=== PATIENT | female | born 1940 | race Caucasian/White ===

== ENCOUNTER 2018-03-17 12:16 | Inpatient (IN) ==
[2018-03-17 13:28] LABS: Alanine Aminotransferase 33 U/L (13-56); Albumin 3.3 G/DL (3.4-5.0); Alkaline Phosphatase 71 U/L (45-117); Aspartate Amino Transferase 34 U/L (0-37); Blood Urea Nitrogen 12 MG/DL (7-18); Glucose 176 MG/DL (74-106); Osmolality,Calculated 280.5 MOS/KG (273-304); Sodium 139 MMOL/L (136-145); Total Protein 7.3 G/DL (6.4-8.3); Troponin I Only < 0.015 NG/ML (0.00-0.045)
[2018-03-17 13:43] LABS: Basophils # 0.1 10*3/uL (0.0-0.2); Basophils % 0.8 % (0.0-0.8); Eosinophils # 0.8 10*3/uL (0.0-0.87); Hematocrit 35.9 VOL% (35.7-47.0); Hemoglobin 11.5 GM/DL (12.0-16.0); Immature Granulocytes % 0.1 %; Immature Granulocytes Absolute 0.01 #; Lymphocytes # 2.5 10*3/uL (1.4-4.0); Lymphocytes % 32.7 % (21.3-54.2); Mean Corpuscular Hemoglobin 27 PG (27-34); Mean Corpuscular Volume 85.5 FL (87-102); Mean Platelet Volume 9.6 FL (9.6-12.0); Monocytes # 0.6 10*3/uL (0.11-0.8); Neutrophils # 3.6 10*3/uL (1.4-7.4); Neutrophils % 48.4 % (38.7-73.9); Platelet Count 211 T/CUMM (130-400); Red Cell Distribution Width 15.5 % (9.3-17.3); White Blood Count 7.5 T/CUMM (4-12)
[2018-03-17 13:51] LABS: PT Patient Result 10.3 SECS; Partial Thromboplastin Time 24.4 SECS (0-40)
[2018-03-17 14:30] LABS: Apearance,Urine Slightly Hazy (Clear); Bacteria,Urine Occasional /HPF (Few); Bilirubin,Urine Negative (Negative); Blood, Urine Small mg/dL (Negative); Glucose,Urine (UA) Negative (Negative); Hyaline Casts,Urine 1 /LPF (0-3); Ketones,Urine Negative (Negative); Mucus,Urine Occasional /LPF (Occasional); Nitrite,Urine Positive (Negative); Protein,Urine Negative; RBC,Urine <1 /HPF (0-4); Squamous Epithelial Cell,Urine Occasional /HPF (0-10); Urine Color Yellow (Yellow); Urine Specific Gravity 1.003 (1.001-1.035); Urine Urobilinogen < 2.0 EU/DL (0.2-1.0); WBC,Urine 221 /HPF (0-6)
[2018-03-17] MEDS ORDERED: LEVOFLOXACIN INJ 750 MG in PREMIX 1 EACH IV STA (14:33)
[2018-03-17] MEDS ORDERED: LORazepam 2 MG/1 ML VIAL IV ONE (15:22)
[2018-03-17] MEDS ORDERED: GLUCAGON 1 MG VIAL IM PRN (15:34)
[2018-03-17] MEDS ORDERED: DEXTROSE 50% 25 GM/50 ML VIAL IV PRN (15:34)
[2018-03-17 15:45] LABS: Risk Ratio 3.08; VLDL CHOLESTEROL 19.4 MG/DL
[2018-03-17] MEDS ORDERED: LEVOFLOXACIN INJ 150 ML IV ONE (15:47)
[2018-03-17] MEDS ORDERED: hydrALAZINE 20 MG/1 ML VIAL ONE (16:28)
[2018-03-17] MEDS: hydrALAZINE 20 MG/1 ML VIAL IV PRN (16:29)
[2018-03-17 16:36] LABS: T4 (Thyroxine) 12.3 UG/DL (4.7-13.3); Thyroid Stimulating Hormone 2.23 uIU/ml (0.358-3.74)
[2018-03-17] MEDS: INSULIN LISPRO 100 UNIT/ML SUBCUT SCH ×2 (17:17→20:48)
[2018-03-17] MEDS: ASPIRIN EC 81 MG TABLET PO SCH (17:23)
[2018-03-17] MEDS: INSULIN GLARGINE 100 UNIT/ML SUBCUT SCH (20:47)
[2018-03-17] MEDS: PROPRANOLOL 40 MG TABLET PO SCH (20:49)
[2018-03-17] MEDS: metFORMIN 500 MG TABLET PO SCH (20:49)
[2018-03-17] MEDS: GABAPENTIN 100 MG CAPSULE PO SCH (20:49)
[2018-03-17] MEDS ORDERED: SIMVASTATIN 40 MG TABLET PO SCH (21:00)
[2018-03-17] MEDS: DOCUSATE SODIUM 100 MG CAPSULE PO SCH (22:17)
[2018-03-18 05:54] LABS: Basophils # 0.1 10*3/uL (0.0-0.2); Basophils % 0.7 % (0.0-0.8); Eosinophils # 0.4 10*3/uL (0.0-0.87); Hematocrit 36.8 VOL% (35.7-47.0); Hemoglobin 11.8 GM/DL (12.0-16.0); Immature Granulocytes % 0.5 %; Immature Granulocytes Absolute 0.04 #; Lymphocytes # 2.2 10*3/uL (1.4-4.0); Lymphocytes % 30.3 % (21.3-54.2); Mean Corpuscular HGB Conc 32.1 GM/DL (32-36); Mean Corpuscular Hemoglobin 28 PG (27-34); Mean Corpuscular Volume 86.6 FL (87-102); Mean Platelet Volume 9.9 FL (9.6-12.0); Monocytes # 0.6 10*3/uL (0.11-0.8); Monocytes % 8.4 % (1.7-12.7); Neutrophils % 54.1 % (38.7-73.9); Platelet Count 223 T/CUMM (130-400); Red Blood Count 4.25 MC/CUMM (3.8-5.5); Red Cell Distribution Width 15.6 % (9.3-17.3); White Blood Count 7.4 T/CUMM (4-12)
[2018-03-18 06:03] LABS: Calcium 9.2 MG/DL (8.5-10.1); Osmolality,Calculated 280.5 MOS/KG (273-304); Potassium 4.1 MMOL/L (3.5-5.1)
[2018-03-18 06:07] LABS: Albumin 3.4 G/DL (3.4-5.0); Bilirubin,Total 1.3 MG/DL (0.2-1.0); Calcium 9.3 MG/DL (8.5-10.1); Osmolality,Calculated 283.4 MOS/KG (273-304); Potassium 4.1 MMOL/L (3.5-5.1); Total Protein 7.1 G/DL (6.4-8.3)
[2018-03-18] MEDS: INSULIN LISPRO 100 UNIT/ML SUBCUT SCH ×5 (08:50→20:53)
[2018-03-18] MEDS: metFORMIN 500 MG TABLET PO SCH ×2 (08:51→20:52)
[2018-03-18] MEDS: PANTOPRAZOLE 40 MG TABLET PO SCH (08:51)
[2018-03-18] MEDS: BENZTROPINE 0.5 MG TABLET PO SCH (08:51)
[2018-03-18] MEDS: PROPRANOLOL 40 MG TABLET PO SCH ×2 (08:51→20:52)
[2018-03-18] MEDS: LOSARTAN 50 MG TABLET PO SCH (08:51)
[2018-03-18] MEDS: DOCUSATE SODIUM 100 MG CAPSULE PO SCH ×2 (08:51→20:52)
[2018-03-18] MEDS: ASPIRIN EC 81 MG TABLET PO SCH (08:51)
[2018-03-18] MEDS: LEVOFLOXACIN INJ 750 MG in PREMIX 1 EACH IV SCH (15:54)
[2018-03-18] MEDS: ATORVASTATIN 10 MG TABLET PO SCH (20:52)
[2018-03-18] MEDS: INSULIN GLARGINE 100 UNIT/ML SUBCUT SCH (20:53)
[2018-03-18] MEDS: GABAPENTIN 100 MG CAPSULE PO SCH (21:13)
[2018-03-19] MEDS: INSULIN LISPRO 100 UNIT/ML SUBCUT SCH ×5 (08:11→20:55)
[2018-03-19] MEDS ORDERED: HALOPERIDOL DECANOATE 50 MG/ML IM SCH (09:00)
[2018-03-19] MEDS: LOSARTAN 50 MG TABLET PO SCH (09:10)
[2018-03-19] MEDS: PANTOPRAZOLE 40 MG TABLET PO SCH (09:11)
[2018-03-19] MEDS: FLUTICASONE 50 MCG NASAL SPRAY 16 GM BOTTLE BOTH NARES SCH (09:11)
[2018-03-19] MEDS: ASPIRIN EC 81 MG TABLET PO SCH (09:11)
[2018-03-19] MEDS: metFORMIN 500 MG TABLET PO SCH ×2 (09:11→20:54)
[2018-03-19] MEDS: PROPRANOLOL 40 MG TABLET PO SCH ×2 (09:11→20:54)
[2018-03-19] MEDS: CLOPIDOGREL 75 MG TABLET PO SCH (09:11)
[2018-03-19] MEDS: DOCUSATE SODIUM 100 MG CAPSULE PO SCH ×2 (09:11→20:54)
[2018-03-19] MEDS: BENZTROPINE 0.5 MG TABLET PO SCH (09:11)
[2018-03-19] MEDS: ALBUTEROL/IPRATROPIUM 3 ML NEB RESP TX SCH ×2 (13:03→20:05)
[2018-03-19] MEDS: LEVOTHYROXINE 25 MCG TABLET PO SCH (13:08)
[2018-03-19] MEDS ORDERED: glipiZIDE 5 MG TABLET PO SCH (16:30)
[2018-03-19] MEDS: LEVOFLOXACIN INJ 750 MG in PREMIX 1 EACH IV SCH (17:31)
[2018-03-19] MEDS: GABAPENTIN 100 MG CAPSULE PO SCH (20:54)
[2018-03-19] MEDS: TAMSULOSIN 0.4 MG CAPSULE PO SCH (20:54)
[2018-03-19] MEDS: ATORVASTATIN 10 MG TABLET PO SCH (20:54)
[2018-03-19] MEDS: INSULIN GLARGINE 100 UNIT/ML SUBCUT SCH (20:54)
[2018-03-20] MEDS: MAGNESIUM HYDROXIDE SUSP 30 ML UDCUP PO PRN (00:08)
[2018-03-20] MEDS: ALBUTEROL/IPRATROPIUM 3 ML NEB RESP TX SCH ×4 (00:54→19:58)
[2018-03-20] MEDS: LEVOTHYROXINE 25 MCG TABLET PO SCH (05:52)
[2018-03-20] MEDS ORDERED: BISACODYL 10 MG SUPP RECTAL ONE (07:58)
[2018-03-20] MEDS: INSULIN LISPRO 100 UNIT/ML SUBCUT SCH ×4 (08:26→20:41)
[2018-03-20] MEDS: BENZTROPINE 0.5 MG TABLET PO SCH (08:26)
[2018-03-20] MEDS: DOCUSATE SODIUM 100 MG CAPSULE PO SCH ×2 (08:27→20:40)
[2018-03-20] MEDS: CLOPIDOGREL 75 MG TABLET PO SCH (08:27)
[2018-03-20] MEDS: LOSARTAN 50 MG TABLET PO SCH (08:27)
[2018-03-20] MEDS: FLUTICASONE 50 MCG NASAL SPRAY 16 GM BOTTLE BOTH NARES SCH (08:27)
[2018-03-20] MEDS: ASPIRIN EC 81 MG TABLET PO SCH (08:27)
[2018-03-20] MEDS: metFORMIN 500 MG TABLET PO SCH ×2 (08:27→20:40)
[2018-03-20] MEDS: PANTOPRAZOLE 40 MG TABLET PO SCH (08:27)
[2018-03-20] MEDS: PROPRANOLOL 40 MG TABLET PO SCH ×2 (08:27→20:40)
[2018-03-20] MEDS: NITROFURANTOIN MACRO/MONO 100 MG CAPSULE PO SCH (10:37)
[2018-03-20] MEDS: LEVOFLOXACIN 500 MG TABLET PO SCH (11:50)
[2018-03-20] MEDS: ATORVASTATIN 10 MG TABLET PO SCH (20:40)
[2018-03-20] MEDS: TAMSULOSIN 0.4 MG CAPSULE PO SCH (20:40)
[2018-03-20] MEDS: INSULIN GLARGINE 100 UNIT/ML SUBCUT SCH (20:40)
[2018-03-20] MEDS: GABAPENTIN 100 MG CAPSULE PO SCH (20:40)
[2018-03-21] MEDS: hydrALAZINE 20 MG/1 ML VIAL IV PRN (00:08)
[2018-03-21] MEDS: ALBUTEROL/IPRATROPIUM 3 ML NEB RESP TX SCH ×4 (01:56→19:34)
[2018-03-21] MEDS: LEVOTHYROXINE 25 MCG TABLET PO SCH (06:15)
[2018-03-21] MEDS: INSULIN LISPRO 100 UNIT/ML SUBCUT SCH ×4 (08:58→22:52)
[2018-03-21] MEDS: metFORMIN 500 MG TABLET PO SCH ×2 (08:59→22:05)
[2018-03-21] MEDS: BENZTROPINE 0.5 MG TABLET PO SCH (09:00)
[2018-03-21] MEDS: PROPRANOLOL 40 MG TABLET PO SCH ×2 (09:00→22:06)
[2018-03-21] MEDS: DOCUSATE SODIUM 100 MG CAPSULE PO SCH ×2 (09:00→22:06)
[2018-03-21] MEDS: ASPIRIN EC 81 MG TABLET PO SCH (09:00)
[2018-03-21] MEDS: LOSARTAN 50 MG TABLET PO SCH (09:01)
[2018-03-21] MEDS: CLOPIDOGREL 75 MG TABLET PO SCH (09:05)
[2018-03-21] MEDS: FLUTICASONE 50 MCG NASAL SPRAY 16 GM BOTTLE BOTH NARES SCH (09:05)
[2018-03-21] MEDS: PANTOPRAZOLE 40 MG TABLET PO SCH (09:05)
[2018-03-21] MEDS: NITROFURANTOIN MACRO/MONO 100 MG CAPSULE PO SCH (11:07)
[2018-03-21] MEDS: LEVOFLOXACIN 500 MG TABLET PO SCH (11:07)
[2018-03-21] MEDS: INSULIN GLARGINE 100 UNIT/ML SUBCUT SCH (22:03)
[2018-03-21] MEDS: ATORVASTATIN 10 MG TABLET PO SCH (22:06)
[2018-03-21] MEDS: GABAPENTIN 100 MG CAPSULE PO SCH (22:06)
[2018-03-21] MEDS: TAMSULOSIN 0.4 MG CAPSULE PO SCH (22:06)
[2018-03-22] MEDS: ALBUTEROL/IPRATROPIUM 3 ML NEB RESP TX SCH ×4 (00:11→20:09)
[2018-03-22] MEDS: LEVOTHYROXINE 25 MCG TABLET PO SCH (06:20)
[2018-03-22] MEDS: INSULIN LISPRO 100 UNIT/ML SUBCUT SCH ×4 (09:05→21:46)
[2018-03-22] MEDS: CLOPIDOGREL 75 MG TABLET PO SCH (09:06)
[2018-03-22] MEDS: ASPIRIN EC 81 MG TABLET PO SCH (09:06)
[2018-03-22] MEDS: PROPRANOLOL 40 MG TABLET PO SCH ×2 (09:06→21:46)
[2018-03-22] MEDS: LEVOFLOXACIN 500 MG TABLET PO SCH ×2 (09:06→10:33)
[2018-03-22] MEDS: BENZTROPINE 0.5 MG TABLET PO SCH (09:06)
[2018-03-22] MEDS: DOCUSATE SODIUM 100 MG CAPSULE PO SCH ×2 (09:06→21:46)
[2018-03-22] MEDS: PANTOPRAZOLE 40 MG TABLET PO SCH (09:06)
[2018-03-22] MEDS: NITROFURANTOIN MACRO/MONO 100 MG CAPSULE PO SCH (09:06)
[2018-03-22] MEDS: metFORMIN 500 MG TABLET PO SCH ×2 (09:06→21:46)
[2018-03-22] MEDS: LOSARTAN 50 MG TABLET PO SCH (09:06)
[2018-03-22] MEDS: FLUTICASONE 50 MCG NASAL SPRAY 16 GM BOTTLE BOTH NARES SCH (09:07)
[2018-03-22] MEDS: TAMSULOSIN 0.4 MG CAPSULE PO SCH (21:46)
[2018-03-22] MEDS: GABAPENTIN 100 MG CAPSULE PO SCH (21:46)
[2018-03-22] MEDS: ATORVASTATIN 10 MG TABLET PO SCH (21:46)
[2018-03-22] MEDS: INSULIN GLARGINE 100 UNIT/ML SUBCUT SCH (21:48)
[2018-03-23] MEDS: ALBUTEROL/IPRATROPIUM 3 ML NEB RESP TX SCH ×4 (00:30→19:29)
[2018-03-23] MEDS: LEVOTHYROXINE 25 MCG TABLET PO SCH (07:11)
[2018-03-23] MEDS: NITROFURANTOIN MACRO/MONO 100 MG CAPSULE PO SCH (09:28)
[2018-03-23] MEDS: INSULIN LISPRO 100 UNIT/ML SUBCUT SCH ×4 (09:28→20:21)
[2018-03-23] MEDS: metFORMIN 500 MG TABLET PO SCH ×2 (09:28→20:20)
[2018-03-23] MEDS: BENZTROPINE 0.5 MG TABLET PO SCH (09:28)
[2018-03-23] MEDS: PROPRANOLOL 40 MG TABLET PO SCH ×2 (09:29→20:20)
[2018-03-23] MEDS: CLOPIDOGREL 75 MG TABLET PO SCH (09:29)
[2018-03-23] MEDS: ASPIRIN EC 81 MG TABLET PO SCH (09:29)
[2018-03-23] MEDS: LOSARTAN 50 MG TABLET PO SCH (09:29)
[2018-03-23] MEDS: PANTOPRAZOLE 40 MG TABLET PO SCH (09:29)
[2018-03-23] MEDS: DOCUSATE SODIUM 100 MG CAPSULE PO SCH ×2 (09:29→20:20)
[2018-03-23] MEDS: FLUTICASONE 50 MCG NASAL SPRAY 16 GM BOTTLE BOTH NARES SCH (09:29)
[2018-03-23] MEDS: LEVOFLOXACIN 500 MG TABLET PO SCH (10:02)
[2018-03-23] MEDS: TAMSULOSIN 0.4 MG CAPSULE PO SCH (20:20)
[2018-03-23] MEDS: ATORVASTATIN 10 MG TABLET PO SCH (20:20)
[2018-03-23] MEDS: INSULIN GLARGINE 100 UNIT/ML SUBCUT SCH (20:21)
[2018-03-23] MEDS: GABAPENTIN 100 MG CAPSULE PO SCH (20:21)
[2018-03-24] MEDS: ALBUTEROL/IPRATROPIUM 3 ML NEB RESP TX SCH ×3 (01:11→13:25)
[2018-03-24] MEDS: LEVOTHYROXINE 25 MCG TABLET PO SCH (05:53)
[2018-03-24] MEDS: NITROFURANTOIN MACRO/MONO 100 MG CAPSULE PO SCH (09:16)
[2018-03-24] MEDS: PROPRANOLOL 40 MG TABLET PO SCH (09:16)
[2018-03-24] MEDS: metFORMIN 500 MG TABLET PO SCH (09:16)
[2018-03-24] MEDS: BENZTROPINE 0.5 MG TABLET PO SCH (09:16)
[2018-03-24] MEDS: DOCUSATE SODIUM 100 MG CAPSULE PO SCH (09:17)
[2018-03-24] MEDS: PANTOPRAZOLE 40 MG TABLET PO SCH (09:17)
[2018-03-24] MEDS: ASPIRIN EC 81 MG TABLET PO SCH (09:17)
[2018-03-24] MEDS: LOSARTAN 50 MG TABLET PO SCH (09:17)
[2018-03-24] MEDS: CLOPIDOGREL 75 MG TABLET PO SCH (09:17)
[2018-03-24] MEDS: FLUTICASONE 50 MCG NASAL SPRAY 16 GM BOTTLE BOTH NARES SCH (09:17)
[2018-03-24] MEDS: MAGNESIUM HYDROXIDE SUSP 30 ML UDCUP PO PRN (09:17)
[2018-03-24] MEDS: INSULIN LISPRO 100 UNIT/ML SUBCUT SCH ×2 (09:17→13:53)
[2018-03-24 12:26] VITALS: BP 160/92
== END 2018-03-24 14:00 | disposition swing bed (61) | DRG 65 ==
LOC: EDBD → EDUNIT# → N.ED 12:16 → SUATTDRO 15:18 → N.EDINP 15:18 → N.5E 16:49
PROVIDERS: ADMIT Internal Medicine; ATTEND Internal Medicine

== ENCOUNTER 2018-06-27 22:15 | Observation (INO) ==
[2018-06-27] MEDS ORDERED: hydrALAZINE 20 MG/1 ML VIAL IV STA (22:55)
[2018-06-27 23:38] LABS: Basophils # 0.1 10*3/uL (0.0-0.2); Basophils % 0.8 % (0.0-0.8); Eosinophils # 1.4 10*3/uL (0.0-0.87); Eosinophils % 15.6 % (0.00-10.9); Hematocrit 31.2 VOL% (35.7-47.0); Hemoglobin 10.1 GM/DL (12.0-16.0); Immature Granulocytes % 0.2 %; Immature Granulocytes Absolute 0.02 #; Lymphocytes # 2.8 10*3/uL (1.4-4.0); Lymphocytes % 30.1 % (21.3-54.2); Mean Corpuscular HGB Conc 32.4 GM/DL (32-36); Mean Corpuscular Hemoglobin 27 PG (27-34); Mean Corpuscular Volume 83.6 FL (87-102); Mean Platelet Volume 8.9 FL (9.6-12.0); Monocytes # 0.8 10*3/uL (0.11-0.8); Monocytes % 8.3 % (1.7-12.7); Neutrophils # 4.2 10*3/uL (1.4-7.4); Platelet Count 202 T/CUMM (130-400); Red Blood Count 3.73 MC/CUMM (3.8-5.5); White Blood Count 9.2 T/CUMM (4-12)
[2018-06-27 23:48] LABS: PT Patient Result 10.4 SECS
[2018-06-28 00:01] LABS: Alanine Aminotransferase 28 U/L (13-56); Albumin 3.7 G/DL (3.4-5.0); Alkaline Phosphatase 62 U/L (45-117); Aspartate Amino Transferase 22 U/L (0-37); Blood Urea Nitrogen 12 MG/DL (7-18); Calcium 8.6 MG/DL (8.5-10.1); Glucose 79 MG/DL (74-106); Osmolality,Calculated 273.7 MOS/KG (273-304); Potassium 3.6 MMOL/L (3.5-5.1); Sodium 138 MMOL/L (136-145); Total Protein 7.4 G/DL (6.4-8.3); Troponin I Only < 0.015 NG/ML (0.00-0.045)
[2018-06-28] MEDS ORDERED: MAGNESIUM SULF RIDER 1 GM in PREMIX 1 EACH IV STA (00:14)
[2018-06-28] MEDS ORDERED: MAGNESIUM SULF RIDER 50 ML IV ONE (00:19)
[2018-06-28 00:24] LABS: Apearance,Urine CLEAR (Clear); Bilirubin,Urine Negative (Negative); Blood, Urine Small mg/dL (Negative); Glucose,Urine (UA) Negative (Negative); Ketones,Urine Negative (Negative); Nitrite,Urine Negative (Negative); Protein,Urine Negative; RBC,Urine 1 /HPF (0-4); Urine Color Colorless (Yellow); Urine Specific Gravity 1.002 (1.001-1.035); Urine Urobilinogen < 2.0 EU/DL (0.2-1.0); WBC,Urine 1 /HPF (0-6)
[2018-06-28] MEDS ORDERED: hydrALAZINE 20 MG/1 ML VIAL IV STA (00:40)
[2018-06-28] MEDS ORDERED: SODIUM CHLORIDE 0.9% 1,000 ML IV STA (01:57)
[2018-06-28 03:16] LABS: Anisocytosis 1+; Band Neutrophils 2 % (0-10); Eosinophils 18 % (0-10); Lymphocytes 32 % (20-55); Microcytosis 1+; Platelet Estimate Normal; Polychromasia Few; Segmented Neutrophils 41 % (50-85); Total Cells Counted 100
[2018-06-28] MEDS ORDERED: ONDANSETRON 4 MG/2 ML VIAL IV PRN (04:04)
[2018-06-28] MEDS ORDERED: GLUCAGON 1 MG VIAL IM PRN (04:04)
[2018-06-28] MEDS ORDERED: ACETAMINOPHEN 325 MG TABLET PO PRN (04:04)
[2018-06-28] MEDS ORDERED: DEXTROSE 50% 25 GM/50 ML VIAL IV PRN (04:04)
[2018-06-28] MEDS: LEVOTHYROXINE 25 MCG TABLET PO SCH (06:25)
[2018-06-28] MEDS ORDERED: CLOPIDOGREL 75 MG TABLET PO SCH (09:00)
[2018-06-28] MEDS ORDERED: ENOXAPARIN 40 MG/0.4 ML SYRINGE SUBCUT SCH (09:00)
[2018-06-28] MEDS: PROPRANOLOL 40 MG TABLET PO SCH ×2 (10:05→21:34)
[2018-06-28] MEDS: BENZTROPINE 0.5 MG TABLET PO SCH (10:05)
[2018-06-28] MEDS: INSULIN LISPRO 100 UNIT/ML SUBCUT SCH ×4 (10:06→21:34)
[2018-06-28] MEDS: LOSARTAN 50 MG TABLET PO SCH (10:06)
[2018-06-28] MEDS: PANTOPRAZOLE 40 MG TABLET PO SCH (10:06)
[2018-06-28] MEDS: ASPIRIN EC 81 MG TABLET PO SCH (10:06)
[2018-06-28] MEDS ORDERED: LORazepam 2 MG/1 ML VIAL IV ONE (11:26)
[2018-06-28] MEDS ORDERED: GABAPENTIN 100 MG CAPSULE PO SCH (21:00)
[2018-06-28] MEDS ORDERED: INSULIN GLARGINE 100 UNIT/ML SUBCUT SCH (21:00)
[2018-06-28] MEDS ORDERED: TAMSULOSIN 0.4 MG CAPSULE PO SCH (21:00)
[2018-06-28] MEDS ORDERED: sitaGLIPtin 25 MG TABLET PO SCH (21:00)
[2018-06-28] MEDS ORDERED: NITROFURANTOIN MACRO/MONO 100 MG CAPSULE PO SCH (21:00)
[2018-06-28] MEDS ORDERED: SIMVASTATIN 40 MG TABLET PO SCH (21:00)
[2018-06-28] MEDS: APIXABAN 2.5 MG TABLET PO SCH (21:33)
[2018-06-29 05:04] LABS: Basophils # 0.1 10*3/uL (0.0-0.2); Basophils % 0.8 % (0.0-0.8); Eosinophils # 0.9 10*3/uL (0.0-0.87); Eosinophils % 14.5 % (0.00-10.9); Hematocrit 31.4 VOL% (35.7-47.0); Hemoglobin 9.9 GM/DL (12.0-16.0); Immature Granulocytes % 0.3 %; Immature Granulocytes Absolute 0.02 #; Lymphocytes # 2.2 10*3/uL (1.4-4.0); Lymphocytes % 33.8 % (21.3-54.2); Mean Corpuscular HGB Conc 31.5 GM/DL (32-36); Mean Corpuscular Hemoglobin 27 PG (27-34); Mean Corpuscular Volume 84.2 FL (87-102); Mean Platelet Volume 9.3 FL (9.6-12.0); Monocytes # 0.6 10*3/uL (0.11-0.8); Monocytes % 8.8 % (1.7-12.7); Neutrophils # 2.7 10*3/uL (1.4-7.4); Neutrophils % 41.8 % (38.7-73.9); Platelet Count 183 T/CUMM (130-400); Red Blood Count 3.73 MC/CUMM (3.8-5.5); Red Cell Distribution Width 16.4 % (9.3-17.3); White Blood Count 6.5 T/CUMM (4-12)
[2018-06-29 05:46] LABS: Calcium 8.7 MG/DL (8.5-10.1); Osmolality,Calculated 285.3 MOS/KG (273-304); Potassium 3.9 MMOL/L (3.5-5.1); Risk Ratio 3.11; VLDL CHOLESTEROL 21.6 MG/DL
[2018-06-29 05:53] LABS: Band Neutrophils 1 % (0-10); Eosinophils 14 % (0-10); Hypochromasia 1+; Lymphocytes 33 % (20-55); Platelet Estimate Normal; Segmented Neutrophils 41 % (50-85); Total Cells Counted 100
[2018-06-29 05:54] LABS: Microcytosis Slight
[2018-06-29] MEDS: LEVOTHYROXINE 25 MCG TABLET PO SCH (06:15)
[2018-06-29] MEDS: INSULIN LISPRO 100 UNIT/ML SUBCUT SCH ×2 (08:59→13:17)
[2018-06-29] MEDS: PANTOPRAZOLE 40 MG TABLET PO SCH (09:13)
[2018-06-29] MEDS: BENZTROPINE 0.5 MG TABLET PO SCH (09:13)
[2018-06-29] MEDS: APIXABAN 2.5 MG TABLET PO SCH (09:13)
[2018-06-29] MEDS: LOSARTAN 50 MG TABLET PO SCH (09:13)
[2018-06-29] MEDS: ASPIRIN EC 81 MG TABLET PO SCH (09:13)
[2018-06-29] MEDS: PROPRANOLOL 40 MG TABLET PO SCH (09:13)
[2018-06-29 12:32] VITALS: BP 152/77
== END 2018-06-29 14:30 | disposition home or self-care (01) ==
LOC: N.ED 22:15 → INTOOBSV 06-28 04:04 → OBSVTOIN 06-28 04:04 → N.EDINP 06-28 04:04 → N.4E 06-28 04:30
PROVIDERS: ADMIT Hospitalist; ATTEND Hospitalist

== ENCOUNTER 2019-05-06 20:34 | Inpatient (IN) ==
[2019-05-06] MEDS ORDERED: SODIUM CHLORIDE 0.9% 500 ML IV STA (21:00)
[2019-05-06 21:49] LABS: Basophils % 0.3 % (0.0-0.8); Eosinophils # 0.3 10*3/uL (0.0-0.87); Hematocrit 27.4 VOL% (35.7-47.0); Hemoglobin 8.5 GM/DL (12.0-16.0); Immature Granulocytes % 0.5 %; Immature Granulocytes Absolute 0.06 #; Lymphocytes # 1.2 10*3/uL (1.4-4.0); Lymphocytes % 10.9 % (21.3-54.2); Mean Corpuscular Volume 80.6 FL (87-102); Mean Platelet Volume 9.3 FL (9.6-12.0); Neutrophils % 81.3 % (38.7-73.9); Platelet Count 218 T/CUMM (130-400); Red Cell Distribution Width 17.8 % (9.3-17.3); White Blood Count 11.2 T/CUMM (4-12)
[2019-05-06 21:58] LABS: PT Patient Result 11.1 SECS
[2019-05-06 22:15] LABS: Apearance,Urine CLEAR (Clear); Bacteria,Urine Occasional /HPF (Few); Bilirubin,Urine Negative (Negative); Blood, Urine Small mg/dL (Negative); Glucose,Urine (UA) Negative (Negative); Ketones,Urine Negative (Negative); Nitrite,Urine Negative (Negative); Protein,Urine Negative; RBC,Urine <1 /HPF (0-4); Squamous Epithelial Cell,Urine Occasional /HPF (0-10); Urine Color Colorless (Yellow); Urine Specific Gravity 1.016 (1.001-1.035); Urine Urobilinogen < 2.0 EU/DL (0.2-1.0); WBC,Urine <1 /HPF (0-6)
[2019-05-06 22:30] LABS: Alanine Aminotransferase 21 U/L (13-56); Alkaline Phosphatase 54 U/L (45-117); Amylase 25 U/L (25-115); Aspartate Amino Transferase 21 U/L (0-37); Blood Urea Nitrogen 15 MG/DL (7-18); Calcium 8.3 MG/DL (8.5-10.1); Free T4 (Free Thyroxine) 1.06 NG/DL (0.76-1.46); Glucose 150 MG/DL (74-106); Osmolality,Calculated 276.8 MOS/KG (273-304); Total Protein 6.5 G/DL (6.4-8.3); Troponin I < 0.015 NG/ML (0.00-0.045)
[2019-05-07] MEDS ORDERED: ONDANSETRON 4 MG/2 ML VIAL IV PRN (03:14)
[2019-05-07] MEDS ORDERED: ACETAMINOPHEN 325 MG TABLET PO PRN (03:14)
[2019-05-07] MEDS ORDERED: GLUCAGON 1 MG VIAL IM PRN (03:14)
[2019-05-07] MEDS ORDERED: DEXTROSE 50% 25 GM/50 ML VIAL IV PRN (03:14)
[2019-05-07] MEDS ORDERED: QUEtiapine 25 MG TABLET PO PRN (03:22)
[2019-05-07] MEDS: INSULIN LISPRO 100 UNIT/ML SUBCUT SCH ×6 (04:30→20:00)
[2019-05-07] MEDS: SODIUM CHLORIDE 0.9% 1,000 ML IV SCH ×2 (04:50→16:52)
[2019-05-07] MEDS: cefTRIAXone 1,000 MG in SYRINGE 1 EACH IV SCH (04:50)
[2019-05-07] MEDS: LEVOTHYROXINE 25 MCG TABLET PO SCH (05:53)
[2019-05-07 07:05] LABS: Basophils % 0.4 % (0.0-0.8); Eosinophils # 0.6 10*3/uL (0.0-0.87); Eosinophils % 8.2 % (0.00-10.9); Hematocrit 29.3 VOL% (35.7-47.0); Hemoglobin 8.9 GM/DL (12.0-16.0); Immature Granulocytes % 0.4 %; Immature Granulocytes Absolute 0.03 #; Mean Corpuscular HGB Conc 30.4 GM/DL (32-36); Mean Corpuscular Volume 81.4 FL (87-102); Mean Platelet Volume 9.2 FL (9.6-12.0); Platelet Count 206 T/CUMM (130-400); Red Cell Distribution Width 18.3 % (9.3-17.3); White Blood Count 7.5 T/CUMM (4-12)
[2019-05-07 07:39] LABS: Calcium 8.7 MG/DL (8.5-10.1); Osmolality,Calculated 281.3 MOS/KG (273-304)
[2019-05-07 07:43] LABS: % Iron Saturation 8.5 % (18-50)
[2019-05-07 07:52] LABS: Anisocytosis 2+; Platelet Estimate Normal; Polychromasia Slight
[2019-05-07 07:53] LABS: Folate 10.1 NG/ML (5.4-24.0); Vitamin B12 193 PG/ML (211-911)
[2019-05-07 08:17] LABS: Sedimentation Rate-Westergren 59 MM/HR (0-30)
[2019-05-07] MEDS: LOSARTAN 50 MG TABLET PO SCH (11:12)
[2019-05-07] MEDS: glipiZIDE 5 MG TABLET PO SCH ×2 (11:12→16:53)
[2019-05-07] MEDS: ASPIRIN EC 81 MG TABLET PO SCH (11:12)
[2019-05-07] MEDS: PANTOPRAZOLE 40 MG TABLET PO SCH (11:13)
[2019-05-07] MEDS: APIXABAN 2.5 MG TABLET PO SCH ×2 (11:13→21:18)
[2019-05-07] MEDS: DOCUSATE SODIUM 100 MG CAPSULE PO PRN (11:13)
[2019-05-07] MEDS: amLODIPine 5 MG TABLET PO SCH (11:13)
[2019-05-07] MEDS: PROPRANOLOL 40 MG TABLET PO SCH ×2 (11:13→21:18)
[2019-05-07] MEDS: CYANOCOBALAMIN 1000 MCG/1 ML VIAL SUBCUT SCH (17:44)
[2019-05-07] MEDS: INSULIN GLARGINE 100 UNIT/ML SUBCUT SCH (20:30)
[2019-05-07] MEDS: FOLIC ACID 1 MG TABLET PO SCH (21:18)
[2019-05-07] MEDS: FERROUS SULFATE 325 MG TABLET PO SCH (21:18)
[2019-05-07] MEDS: TAMSULOSIN 0.4 MG CAPSULE PO SCH (21:18)
[2019-05-08] MEDS: cefTRIAXone 1,000 MG in SYRINGE 1 EACH IV SCH (04:28)
[2019-05-08 04:31] LABS: Basophils % 0.5 % (0.0-0.8); Eosinophils # 0.7 10*3/uL (0.0-0.87); Eosinophils % 11.4 % (0.00-10.9); Hematocrit 27.3 VOL% (35.7-47.0); Hemoglobin 8.3 GM/DL (12.0-16.0); Immature Granulocytes % 0.3 %; Immature Granulocytes Absolute 0.02 #; Lymphocytes # 2.1 10*3/uL (1.4-4.0); Lymphocytes % 32.5 % (21.3-54.2); Mean Corpuscular HGB Conc 30.4 GM/DL (32-36); Mean Platelet Volume 9.5 FL (9.6-12.0); Monocytes % 8.6 % (1.7-12.7); Neutrophils % 46.7 % (38.7-73.9); Platelet Count 197 T/CUMM (130-400); Red Blood Count 3.37 MC/CUMM (3.8-5.5); Red Cell Distribution Width 18.2 % (9.3-17.3); White Blood Count 6.5 T/CUMM (4-12)
[2019-05-08 04:53] LABS: Calcium 8.5 MG/DL (8.5-10.1)
[2019-05-08] MEDS: SODIUM CHLORIDE 0.9% 1,000 ML IV SCH ×3 (05:15→21:45)
[2019-05-08] MEDS: LEVOTHYROXINE 25 MCG TABLET PO SCH (06:09)
[2019-05-08 06:52] LABS: Anisocytosis 1+; Band Neutrophils 3 % (0-10); Eosinophils 15 % (0-10); Lymphocytes 28 % (20-55); Macrocytosis Slight; Platelet Estimate Normal; Poikilocytosis 1+; Polychromasia Slight; Segmented Neutrophils 50 % (50-85); Total Cells Counted 100
[2019-05-08] MEDS: PROPRANOLOL 40 MG TABLET PO SCH ×2 (08:29→21:44)
[2019-05-08] MEDS: FERROUS SULFATE 325 MG TABLET PO SCH ×2 (08:29→21:44)
[2019-05-08] MEDS: LOSARTAN 50 MG TABLET PO SCH (08:30)
[2019-05-08] MEDS: APIXABAN 2.5 MG TABLET PO SCH ×2 (08:30→21:44)
[2019-05-08] MEDS: amLODIPine 5 MG TABLET PO SCH (08:30)
[2019-05-08] MEDS: PANTOPRAZOLE 40 MG TABLET PO SCH (08:30)
[2019-05-08] MEDS: INSULIN LISPRO 100 UNIT/ML SUBCUT SCH ×5 (08:30→21:45)
[2019-05-08] MEDS: ASPIRIN EC 81 MG TABLET PO SCH (08:30)
[2019-05-08] MEDS: glipiZIDE 5 MG TABLET PO SCH ×2 (08:30→17:58)
[2019-05-08] MEDS: CYANOCOBALAMIN 1000 MCG/1 ML VIAL SUBCUT SCH (08:31)
[2019-05-08] MEDS ORDERED: VANCOMYCIN INJ 1,000 MG in SODIUM CHLORIDE 0.9% 250 ML IV SCH (09:00)
[2019-05-08] MEDS: TAMSULOSIN 0.4 MG CAPSULE PO SCH (21:44)
[2019-05-08] MEDS: FOLIC ACID 1 MG TABLET PO SCH (21:44)
[2019-05-08] MEDS: INSULIN GLARGINE 100 UNIT/ML SUBCUT SCH (21:45)
[2019-05-09] MEDS ORDERED: hydrALAZINE 20 MG/1 ML VIAL IV PRN (04:09)
[2019-05-09] MEDS: cefTRIAXone 1,000 MG in SYRINGE 1 EACH IV SCH (04:32)
[2019-05-09 04:48] LABS: Basophils % 0.6 % (0.0-0.8); Eosinophils # 0.7 10*3/uL (0.0-0.87); Eosinophils % 11.2 % (0.00-10.9); Hematocrit 28.7 VOL% (35.7-47.0); Hemoglobin 8.7 GM/DL (12.0-16.0); Immature Granulocytes % 0.9 %; Immature Granulocytes Absolute 0.06 #; Lymphocytes % 30.3 % (21.3-54.2); Mean Corpuscular HGB Conc 30.3 GM/DL (32-36); Mean Corpuscular Volume 80.6 FL (87-102); Mean Platelet Volume 9.5 FL (9.6-12.0); Monocytes % 7.8 % (1.7-12.7); Neutrophils % 49.2 % (38.7-73.9); Platelet Count 220 T/CUMM (130-400); Red Blood Count 3.56 MC/CUMM (3.8-5.5); Red Cell Distribution Width 17.9 % (9.3-17.3); White Blood Count 6.5 T/CUMM (4-12)
[2019-05-09 05:13] LABS: Calcium 8.6 MG/DL (8.5-10.1)
[2019-05-09] MEDS: LEVOTHYROXINE 25 MCG TABLET PO SCH (05:22)
[2019-05-09 05:52] LABS: Anisocytosis 1+; Eosinophils 9 % (0-10); Lymphocytes 21 % (20-55); Platelet Estimate Adequate; Segmented Neutrophils 66 % (50-85); Total Cells Counted 100
[2019-05-09] MEDS: INSULIN LISPRO 100 UNIT/ML SUBCUT SCH ×5 (09:02→22:21)
[2019-05-09] MEDS: ASPIRIN EC 81 MG TABLET PO SCH (09:03)
[2019-05-09] MEDS: APIXABAN 2.5 MG TABLET PO SCH ×2 (09:03→22:21)
[2019-05-09] MEDS: glipiZIDE 5 MG TABLET PO SCH ×2 (09:03→16:47)
[2019-05-09] MEDS: PROPRANOLOL 40 MG TABLET PO SCH ×2 (09:03→22:21)
[2019-05-09] MEDS: FERROUS SULFATE 325 MG TABLET PO SCH ×2 (09:04→22:21)
[2019-05-09] MEDS: PANTOPRAZOLE 40 MG TABLET PO SCH (09:04)
[2019-05-09] MEDS: CYANOCOBALAMIN 1000 MCG/1 ML VIAL SUBCUT SCH (09:04)
[2019-05-09] MEDS: LOSARTAN 50 MG TABLET PO SCH (09:04)
[2019-05-09] MEDS: amLODIPine 5 MG TABLET PO SCH (09:04)
[2019-05-09] MEDS: SODIUM CHLORIDE 0.9% 1,000 ML IV SCH (09:10)
[2019-05-09] MEDS ORDERED: amLODIPine 5 MG TABLET PO ONE (14:12)
[2019-05-09] MEDS: BENZTROPINE 0.5 MG TABLET PO SCH (16:08)
[2019-05-09] MEDS: FOLIC ACID 1 MG TABLET PO SCH (22:21)
[2019-05-09] MEDS: GABAPENTIN 100 MG CAPSULE PO SCH (22:21)
[2019-05-09] MEDS: SIMVASTATIN 40 MG TABLET PO SCH (22:21)
[2019-05-09] MEDS: TAMSULOSIN 0.4 MG CAPSULE PO SCH (22:21)
[2019-05-09] MEDS: INSULIN GLARGINE 100 UNIT/ML SUBCUT SCH (22:21)
[2019-05-10] MEDS: cefTRIAXone 1,000 MG in SYRINGE 1 EACH IV SCH (03:55)
[2019-05-10 04:26] LABS: Basophils % 0.5 % (0.0-0.8); Eosinophils # 0.7 10*3/uL (0.0-0.87); Eosinophils % 9.6 % (0.00-10.9); Hematocrit 28.4 VOL% (35.7-47.0); Hemoglobin 8.7 GM/DL (12.0-16.0); Immature Granulocytes % 0.5 %; Immature Granulocytes Absolute 0.04 #; Lymphocytes # 2.5 10*3/uL (1.4-4.0); Lymphocytes % 33.6 % (21.3-54.2); Mean Corpuscular HGB Conc 30.6 GM/DL (32-36); Mean Corpuscular Volume 80.2 FL (87-102); Mean Platelet Volume 9.3 FL (9.6-12.0); Monocytes % 6.5 % (1.7-12.7); Neutrophils % 49.3 % (38.7-73.9); Platelet Count 222 T/CUMM (130-400); Red Blood Count 3.54 MC/CUMM (3.8-5.5); Red Cell Distribution Width 18.5 % (9.3-17.3); White Blood Count 7.5 T/CUMM (4-12)
[2019-05-10 04:52] LABS: Calcium 8.8 MG/DL (8.5-10.1); Osmolality,Calculated 291.8 MOS/KG (273-304)
[2019-05-10] MEDS: LEVOTHYROXINE 25 MCG TABLET PO SCH (06:16)
[2019-05-10] MEDS: INSULIN LISPRO 100 UNIT/ML SUBCUT SCH ×5 (08:48→21:21)
[2019-05-10] MEDS: amLODIPine 10 MG TABLET PO SCH (08:50)
[2019-05-10] MEDS: BENZTROPINE 0.5 MG TABLET PO SCH ×2 (08:50→08:56)
[2019-05-10] MEDS: ASPIRIN EC 81 MG TABLET PO SCH (08:50)
[2019-05-10] MEDS: FERROUS SULFATE 325 MG TABLET PO SCH ×2 (08:50→21:21)
[2019-05-10] MEDS: PANTOPRAZOLE 40 MG TABLET PO SCH (08:50)
[2019-05-10] MEDS: APIXABAN 2.5 MG TABLET PO SCH ×2 (08:50→21:20)
[2019-05-10] MEDS: glipiZIDE 5 MG TABLET PO SCH ×2 (08:50→16:31)
[2019-05-10] MEDS: LOSARTAN 50 MG TABLET PO SCH (08:50)
[2019-05-10] MEDS: PROPRANOLOL 40 MG TABLET PO SCH ×2 (08:50→21:20)
[2019-05-10] MEDS: CYANOCOBALAMIN 1000 MCG/1 ML VIAL SUBCUT SCH (08:51)
[2019-05-10] MEDS: LEVOFLOXACIN 500 MG TABLET PO SCH (16:31)
[2019-05-10] MEDS: GABAPENTIN 100 MG CAPSULE PO SCH (21:20)
[2019-05-10] MEDS: FOLIC ACID 1 MG TABLET PO SCH (21:20)
[2019-05-10] MEDS: SIMVASTATIN 40 MG TABLET PO SCH (21:20)
[2019-05-10] MEDS: INSULIN GLARGINE 100 UNIT/ML SUBCUT SCH (21:21)
[2019-05-10] MEDS: TAMSULOSIN 0.4 MG CAPSULE PO SCH (21:28)
[2019-05-11] MEDS: cefTRIAXone 1,000 MG in SYRINGE 1 EACH IV SCH (03:34)
[2019-05-11 04:50] LABS: Basophils # 0.1 10*3/uL (0.0-0.2); Basophils % 0.8 % (0.0-0.8); Eosinophils # 0.7 10*3/uL (0.0-0.87); Eosinophils % 11.2 % (0.00-10.9); Hematocrit 27.6 VOL% (35.7-47.0); Hemoglobin 8.5 GM/DL (12.0-16.0); Immature Granulocytes % 0.9 %; Immature Granulocytes Absolute 0.06 #; Lymphocytes # 2.1 10*3/uL (1.4-4.0); Lymphocytes % 32.1 % (21.3-54.2); Mean Corpuscular HGB Conc 30.8 GM/DL (32-36); Mean Corpuscular Volume 80.7 FL (87-102); Mean Platelet Volume 9.4 FL (9.6-12.0); Monocytes % 8.1 % (1.7-12.7); Neutrophils % 46.9 % (38.7-73.9); Platelet Count 218 T/CUMM (130-400); Red Blood Count 3.42 MC/CUMM (3.8-5.5); Red Cell Distribution Width 18.6 % (9.3-17.3); White Blood Count 6.4 T/CUMM (4-12)
[2019-05-11 05:19] LABS: Calcium 8.9 MG/DL (8.5-10.1)
[2019-05-11 05:26] LABS: Eosinophils 4 % (0-10); Lymphocytes 19 % (20-55); Segmented Neutrophils 76 % (50-85); Total Cells Counted 100
[2019-05-11 05:27] LABS: Anisocytosis 1+; Platelet Estimate Adequate
[2019-05-11] MEDS: LEVOTHYROXINE 25 MCG TABLET PO SCH (07:33)
[2019-05-11] MEDS: INSULIN LISPRO 100 UNIT/ML SUBCUT SCH ×5 (07:48→21:11)
[2019-05-11] MEDS: APIXABAN 2.5 MG TABLET PO SCH ×2 (08:43→21:07)
[2019-05-11] MEDS: CYANOCOBALAMIN 1000 MCG/1 ML VIAL SUBCUT SCH (08:43)
[2019-05-11] MEDS: LEVOFLOXACIN 500 MG TABLET PO SCH (08:43)
[2019-05-11] MEDS: PANTOPRAZOLE 40 MG TABLET PO SCH (08:43)
[2019-05-11] MEDS: ASPIRIN EC 81 MG TABLET PO SCH (08:43)
[2019-05-11] MEDS: FERROUS SULFATE 325 MG TABLET PO SCH ×2 (08:43→21:07)
[2019-05-11] MEDS: LOSARTAN 50 MG TABLET PO SCH (08:43)
[2019-05-11] MEDS: amLODIPine 10 MG TABLET PO SCH (08:43)
[2019-05-11] MEDS: PROPRANOLOL 40 MG TABLET PO SCH ×2 (08:43→21:07)
[2019-05-11] MEDS: BENZTROPINE 0.5 MG TABLET PO SCH (08:43)
[2019-05-11] MEDS: glipiZIDE 5 MG TABLET PO SCH ×2 (08:43→17:09)
[2019-05-11] MEDS ORDERED: DEXTROSE 10% 250 ML IV ONE (17:33)
[2019-05-11] MEDS ORDERED: NALOXONE 0.4 MG/ML VIAL ONE (17:38)
[2019-05-11] MEDS: TAMSULOSIN 0.4 MG CAPSULE PO SCH (21:07)
[2019-05-11] MEDS: GABAPENTIN 100 MG CAPSULE PO SCH (21:07)
[2019-05-11] MEDS: SIMVASTATIN 40 MG TABLET PO SCH (21:08)
[2019-05-11] MEDS: DOCUSATE SODIUM 100 MG CAPSULE PO PRN (21:09)
[2019-05-11] MEDS: FOLIC ACID 1 MG TABLET PO SCH (21:11)
[2019-05-11] MEDS: INSULIN GLARGINE 100 UNIT/ML SUBCUT SCH (21:11)
[2019-05-12] MEDS: LEVOTHYROXINE 25 MCG TABLET PO SCH (06:06)
[2019-05-12] MEDS: INSULIN LISPRO 100 UNIT/ML SUBCUT SCH ×3 (08:00→12:41)
[2019-05-12] MEDS: BENZTROPINE 0.5 MG TABLET PO SCH (08:12)
[2019-05-12] MEDS: amLODIPine 10 MG TABLET PO SCH (08:12)
[2019-05-12] MEDS: APIXABAN 2.5 MG TABLET PO SCH ×2 (08:12→20:52)
[2019-05-12] MEDS: ASPIRIN EC 81 MG TABLET PO SCH (08:12)
[2019-05-12] MEDS: PROPRANOLOL 40 MG TABLET PO SCH ×2 (08:13→20:52)
[2019-05-12] MEDS: glipiZIDE 5 MG TABLET PO SCH ×2 (08:13→16:24)
[2019-05-12] MEDS: LOSARTAN 50 MG TABLET PO SCH (08:13)
[2019-05-12] MEDS: PANTOPRAZOLE 40 MG TABLET PO SCH (08:13)
[2019-05-12] MEDS: FERROUS SULFATE 325 MG TABLET PO SCH ×2 (08:13→20:51)
[2019-05-12] MEDS: CYANOCOBALAMIN 1000 MCG/1 ML VIAL SUBCUT SCH (08:13)
[2019-05-12] MEDS: LEVOFLOXACIN 500 MG TABLET PO SCH (08:56)
[2019-05-12] MEDS: GABAPENTIN 100 MG CAPSULE PO SCH (20:51)
[2019-05-12] MEDS: INSULIN GLARGINE 100 UNIT/ML SUBCUT SCH (20:52)
[2019-05-12] MEDS: FOLIC ACID 1 MG TABLET PO SCH (20:52)
[2019-05-12] MEDS: SIMVASTATIN 40 MG TABLET PO SCH (20:52)
[2019-05-12] MEDS: TAMSULOSIN 0.4 MG CAPSULE PO SCH (20:55)
[2019-05-12] MEDS: DOCUSATE SODIUM 100 MG CAPSULE PO PRN (20:55)
[2019-05-13] MEDS: LEVOTHYROXINE 25 MCG TABLET PO SCH (06:13)
[2019-05-13 07:56] VITALS: BP 110/60
[2019-05-13] MEDS: LOSARTAN 50 MG TABLET PO SCH (08:02)
[2019-05-13] MEDS: amLODIPine 10 MG TABLET PO SCH (08:02)
[2019-05-13] MEDS: APIXABAN 2.5 MG TABLET PO SCH (08:02)
[2019-05-13] MEDS: BENZTROPINE 0.5 MG TABLET PO SCH ×2 (08:02→08:07)
[2019-05-13] MEDS: PANTOPRAZOLE 40 MG TABLET PO SCH (08:03)
[2019-05-13] MEDS: FERROUS SULFATE 325 MG TABLET PO SCH (08:03)
[2019-05-13] MEDS: LEVOFLOXACIN 500 MG TABLET PO SCH (08:03)
[2019-05-13] MEDS: PROPRANOLOL 40 MG TABLET PO SCH (08:03)
[2019-05-13] MEDS: glipiZIDE 5 MG TABLET PO SCH (08:03)
[2019-05-13] MEDS: ASPIRIN EC 81 MG TABLET PO SCH (08:03)
[2019-05-13] MEDS: CYANOCOBALAMIN 1000 MCG/1 ML VIAL SUBCUT SCH (08:03)
[2019-05-30] MEDS ORDERED: HALOPERIDOL DECANOATE 50 MG IM SCH (03:30)
== END 2019-05-13 12:25 | disposition swing bed (61) | DRG 690 ==
LOC: EDBD → EDUNIT# → N.ED 20:34 → N.EDINP 05-07 01:41 → N.5E 05-07 02:21
PROVIDERS: ADMIT Internal Medicine; ATTEND Internal Medicine

== ENCOUNTER 2019-06-08 10:08 | Inpatient (IN) ==
[2019-06-08] MEDS ORDERED: LEVOFLOXACIN INJ 750 MG in PREMIX 1 EACH IV STA (10:30)
[2019-06-08] MEDS ORDERED: SODIUM CHLORIDE 0.9% 500 ML IV STA (10:30)
[2019-06-08 10:40] LABS: Basophils % 0.3 % (0.0-0.8); Eosinophils % 0.3 % (0.00-10.9); Hematocrit 30.9 VOL% (35.7-47.0); Hemoglobin 9.8 GM/DL (12.0-16.0); Immature Granulocytes % 0.5 %; Immature Granulocytes Absolute 0.05 #; Lymphocytes # 1.3 10*3/uL (1.4-4.0); Lymphocytes % 14.4 % (21.3-54.2); Mean Corpuscular HGB Conc 31.7 GM/DL (32-36); Mean Corpuscular Volume 83.5 FL (87-102); Mean Platelet Volume 9.7 FL (9.6-12.0); Monocytes % 8.3 % (1.7-12.7); Neutrophils % 76.2 % (38.7-73.9); Platelet Count 248 T/CUMM (130-400); Red Cell Distribution Width 20.6 % (9.3-17.3); White Blood Count 9.3 T/CUMM (4-12)
[2019-06-08 10:45] LABS: Apearance,Urine CLEAR (Clear); Bilirubin,Urine Negative (Negative); Blood, Urine Small mg/dL (Negative); Glucose,Urine (UA) Negative (Negative); Ketones,Urine 5 mg/dL (Negative); Mucus,Urine Occasional /LPF (Occasional); Nitrite,Urine Negative (Negative); Protein,Urine Negative; RBC,Urine 2 /HPF (0-4); Squamous Epithelial Cell,Urine Occasional /HPF (0-10); Urine Color Yellow (Yellow); Urine Urobilinogen < 2.0 EU/DL (<2.0); WBC,Urine <1 /HPF (0-6)
[2019-06-08] MEDS ORDERED: FUROSEMIDE 100 MG/10 ML VIAL IV STA (10:56)
[2019-06-08 10:59] LABS: Albumin 2.3 G/DL (3.4-5.0); Bilirubin,Total 0.8 MG/DL (0.2-1.0); Calcium 8.8 MG/DL (8.5-10.1); Osmolality,Calculated 270.1 MOS/KG (273-304); Total Protein 7.5 G/DL (6.4-8.3)
[2019-06-08 11:01] LABS: Hypochromasia 1+
[2019-06-08 11:02] LABS: Platelet Estimate Adequate
[2019-06-08] MEDS ORDERED: MEROPENEM 1,000 MG VIAL IV ONE (13:02)
[2019-06-08] MEDS: MEROPENEM 1,000 MG in SODIUM CHLORIDE 0.9% 100 ML IV SCH ×2 (13:15→21:07)
[2019-06-08] MEDS ORDERED: PROPOFOL 200 MG/20 ML VIAL IV ONE ×3 (13:18→13:39)
[2019-06-08] MEDS ORDERED: SUCCINYLCHOLINE 200 MG/10 ML VIAL IV ONE ×3 (13:18→13:40)
[2019-06-08] MEDS ORDERED: ONDANSETRON 4 MG/2 ML VIAL IV PRN (13:18)
[2019-06-08] MEDS: PROPOFOL 1,000 MG/100 ML BOTTLE IV SCH (14:10)
[2019-06-08 14:42] LABS: ABG Base Excess -0.3 MMOL/L (-2.5-2.5); ABG HCO3 22.1 MMOL/L (20-26); ABG Oxygen Saturation 99.3 % (95-100); ABG PCO2 29.1 MM HG (35-48); ABG PH 7.499 (7.35-7.45); ABG PO2 319.8 MM HG (80-95); Pt O2 Delivery Device Ventilator
[2019-06-08] MEDS: DEXTROSE 5% LACTATED RINGERS 1,000 ML IV SCH (15:53)
[2019-06-08] MEDS: VANCOMYCIN INJ 1,250 MG in SODIUM CHLORIDE 0.9% 250 ML IV SCH (16:26)
[2019-06-08] MEDS: ENOXAPARIN 40 MG/0.4 ML SYRINGE SUBCUT SCH (16:33)
[2019-06-08] MEDS ORDERED: SODIUM CHLORIDE 0.9% 500 ML IV ONE (22:58)
[2019-06-08 23:39] LABS: Albumin 1.7 G/DL (3.4-5.0); Bilirubin,Total 0.7 MG/DL (0.2-1.0); Calcium 8.4 MG/DL (8.5-10.1); Total Protein 6.8 G/DL (6.4-8.3)
[2019-06-09] MEDS: DEXTROSE 5% LACTATED RINGERS 1,000 ML IV SCH ×2 (02:09→11:11)
[2019-06-09 03:43] LABS: ABG Base Excess 0.3 MMOL/L (-2.5-2.5); ABG Oxygen Saturation 99.3 % (95-100); ABG PH 7.503 (7.35-7.45); ABG PO2 327.2 MM HG (80-95); ABG TCO2 23.9 MMOL/L (23-27); Allen Test Positive; Pt O2 Delivery Device Ventilator
[2019-06-09] MEDS: MEROPENEM 1,000 MG in SODIUM CHLORIDE 0.9% 100 ML IV SCH ×3 (03:43→21:15)
[2019-06-09 05:20] LABS: Basophils % 0.3 % (0.0-0.8); Eosinophils # 0.1 10*3/uL (0.0-0.87); Eosinophils % 1.6 % (0.00-10.9); Hematocrit 25.9 VOL% (35.7-47.0); Hemoglobin 8.1 GM/DL (12.0-16.0); Immature Granulocytes % 0.4 %; Immature Granulocytes Absolute 0.03 #; Lymphocytes # 1.2 10*3/uL (1.4-4.0); Mean Corpuscular HGB Conc 31.3 GM/DL (32-36); Mean Corpuscular Volume 85.2 FL (87-102); Monocytes % 5.2 % (1.7-12.7); Neutrophils % 74.5 % (38.7-73.9); Platelet Count 210 T/CUMM (130-400); Red Blood Count 3.04 MC/CUMM (3.8-5.5); White Blood Count 6.8 T/CUMM (4-12)
[2019-06-09 05:59] LABS: Blood Urea Nitrogen 21 MG/DL (7-18); Calcium 8.4 MG/DL (8.5-10.1); Glucose 303 MG/DL (74-106)
[2019-06-09 06:02] LABS: Troponin I 0.853 NG/ML (0.00-0.045)
[2019-06-09] MEDS: PROPOFOL 1,000 MG/100 ML BOTTLE IV SCH ×3 (06:15→19:06)
[2019-06-09] MEDS ORDERED: MAGNESIUM SULF RIDER 4 GM in PREMIX 1 EACH IV ONE (08:25)
[2019-06-09] MEDS: LANSOPRAZOLE ODT 30 MG TABLET PER TUBE SCH (09:55)
[2019-06-09] MEDS ORDERED: FUROSEMIDE 40 MG TABLET PO SCH (11:00)
[2019-06-09] MEDS: LEVOTHYROXINE 25 MCG TABLET PO SCH (11:10)
[2019-06-09] MEDS: PROPRANOLOL 40 MG TABLET PO SCH ×2 (11:10→21:17)
[2019-06-09] MEDS: LOSARTAN 50 MG TABLET PO SCH (11:10)
[2019-06-09] MEDS: VANCOMYCIN INJ 1,250 MG in SODIUM CHLORIDE 0.9% 250 ML IV SCH (15:49)
[2019-06-09] MEDS: ENOXAPARIN 40 MG/0.4 ML SYRINGE SUBCUT SCH (15:49)
[2019-06-09] MEDS ORDERED: MAGNESIUM SULF RIDER 2 GM in PREMIX 1 EACH IV ONE (16:00)
[2019-06-09] MEDS ORDERED: TAMSULOSIN 0.4 MG CAPSULE PO SCH (21:00)
[2019-06-09] MEDS: QUEtiapine 25 MG TABLET PO SCH (21:17)
[2019-06-09] MEDS: SIMVASTATIN 40 MG TABLET PO SCH (21:17)
[2019-06-10 04:13] LABS: ABG Base Excess 2.6 MMOL/L (-2.5-2.5); ABG HCO3 26.7 MMOL/L (20-26); ABG Oxygen Saturation 97.9 % (95-100); ABG PCO2 34.7 MM HG (35-48); ABG PH 7.481 (7.35-7.45); ABG PO2 93.2 MM HG (80-95); ABG TCO2 23.7 MMOL/L (23-27)
[2019-06-10 04:33] LABS: Basophils % 0.2 % (0.0-0.8); Eosinophils # 0.4 10*3/uL (0.0-0.87); Eosinophils % 4.8 % (0.00-10.9); Hemoglobin 7.7 GM/DL (12.0-16.0); Immature Granulocytes % 0.6 %; Immature Granulocytes Absolute 0.05 #; Lymphocytes # 1.7 10*3/uL (1.4-4.0); Lymphocytes % 19.9 % (21.3-54.2); Mean Corpuscular HGB Conc 30.8 GM/DL (32-36); Mean Corpuscular Volume 86.2 FL (87-102); Mean Platelet Volume 9.3 FL (9.6-12.0); Monocytes % 4.8 % (1.7-12.7); Neutrophils % 69.7 % (38.7-73.9); Platelet Count 201 T/CUMM (130-400); White Blood Count 8.3 T/CUMM (4-12)
[2019-06-10 04:54] LABS: Calcium 7.8 MG/DL (8.5-10.1); Osmolality,Calculated 286.1 MOS/KG (273-304)
[2019-06-10] MEDS: MEROPENEM 1,000 MG in SODIUM CHLORIDE 0.9% 100 ML IV SCH ×3 (05:08→20:18)
[2019-06-10] MEDS: PROPOFOL 1,000 MG/100 ML BOTTLE IV SCH ×2 (07:59→18:55)
[2019-06-10] MEDS ORDERED: GLUCAGON 1 MG VIAL IM PRN (08:20)
[2019-06-10] MEDS ORDERED: DEXTROSE 50% 25 GM/50 ML VIAL IV PRN (08:20)
[2019-06-10] MEDS: INSULIN GLARGINE 100 UNIT/ML SUBCUT SCH (09:38)
[2019-06-10] MEDS: LOSARTAN 50 MG TABLET PO SCH (09:38)
[2019-06-10] MEDS: PROPRANOLOL 40 MG TABLET PO SCH ×2 (09:38→20:22)
[2019-06-10] MEDS: LEVOTHYROXINE 25 MCG TABLET PO SCH (09:38)
[2019-06-10] MEDS: LANSOPRAZOLE ODT 30 MG TABLET PER TUBE SCH (09:38)
[2019-06-10] MEDS: INSULIN LISPRO 100 UNIT/ML SUBCUT SCH ×3 (12:07→23:31)
[2019-06-10] MEDS: ENOXAPARIN 40 MG/0.4 ML SYRINGE SUBCUT SCH (14:58)
[2019-06-10] MEDS: VANCOMYCIN INJ 1,250 MG in SODIUM CHLORIDE 0.9% 250 ML IV SCH (14:58)
[2019-06-10] MEDS: QUEtiapine 25 MG TABLET PO SCH (20:22)
[2019-06-10] MEDS: SIMVASTATIN 40 MG TABLET PO SCH (20:22)
[2019-06-11 04:57] LABS: Basophils % 0.4 % (0.0-0.8); Eosinophils # 0.7 10*3/uL (0.0-0.87); Eosinophils % 8.1 % (0.00-10.9); Hematocrit 24.6 VOL% (35.7-47.0); Hemoglobin 7.8 GM/DL (12.0-16.0); Immature Granulocytes % 0.4 %; Immature Granulocytes Absolute 0.03 #; Lymphocytes # 1.7 10*3/uL (1.4-4.0); Mean Corpuscular HGB Conc 31.7 GM/DL (32-36); Mean Corpuscular Volume 84.8 FL (87-102); Mean Platelet Volume 9.5 FL (9.6-12.0); Monocytes % 4.9 % (1.7-12.7); Neutrophils % 65.2 % (38.7-73.9); Platelet Count 213 T/CUMM (130-400); Red Cell Distribution Width 20.2 % (9.3-17.3)
[2019-06-11 05:08] LABS: Calcium 8.3 MG/DL (8.5-10.1); Osmolality,Calculated 282.5 MOS/KG (273-304)
[2019-06-11 05:20] LABS: ABG Base Excess 4.1 MMOL/L (-2.5-2.5); ABG HCO3 28.1 MMOL/L (20-26); ABG Oxygen Saturation 98.7 % (95-100); ABG PH 7.482 (7.35-7.45); ABG TCO2 25.8 MMOL/L (23-27); Allen Test Positive; Pt O2 Delivery Device Ventilator
[2019-06-11] MEDS: INSULIN LISPRO 100 UNIT/ML SUBCUT SCH ×4 (05:49→23:30)
[2019-06-11] MEDS: MEROPENEM 1,000 MG in SODIUM CHLORIDE 0.9% 100 ML IV SCH ×3 (05:50→19:49)
[2019-06-11] MEDS: PROPOFOL 1,000 MG/100 ML BOTTLE IV SCH ×3 (06:58→16:45)
[2019-06-11] MEDS: INSULIN GLARGINE 100 UNIT/ML SUBCUT SCH (09:55)
[2019-06-11] MEDS: PROPRANOLOL 40 MG TABLET PO SCH ×2 (09:56→20:42)
[2019-06-11] MEDS: LEVOTHYROXINE 25 MCG TABLET PO SCH (09:56)
[2019-06-11] MEDS: LOSARTAN 50 MG TABLET PO SCH (09:56)
[2019-06-11] MEDS: LANSOPRAZOLE ODT 30 MG TABLET PER TUBE SCH (09:56)
[2019-06-11] MEDS: ENOXAPARIN 40 MG/0.4 ML SYRINGE SUBCUT SCH (15:30)
[2019-06-11] MEDS: VANCOMYCIN INJ 1,250 MG in SODIUM CHLORIDE 0.9% 250 ML IV SCH (15:30)
[2019-06-11] MEDS: SIMVASTATIN 40 MG TABLET PO SCH (20:42)
[2019-06-11] MEDS: QUEtiapine 25 MG TABLET PO SCH (20:42)
[2019-06-12] MEDS: PROPOFOL 1,000 MG/100 ML BOTTLE IV SCH ×4 (00:21→16:48)
[2019-06-12] MEDS: VANCOMYCIN INJ 1,250 MG in SODIUM CHLORIDE 0.9% 250 ML IV SCH ×3 (02:08→14:45)
[2019-06-12] MEDS: ACETAMINOPHEN 325 MG TABLET PO PRN (03:22)
[2019-06-12 03:56] LABS: Allen Test Positive; Pt O2 Delivery Device Ventilator
[2019-06-12 03:58] LABS: ABG Base Excess 3.3 MMOL/L (-2.5-2.5); ABG HCO3 27.4 MMOL/L (20-26); ABG Oxygen Saturation 99.1 % (95-100); ABG PCO2 37.5 MM HG (35-48); ABG PH 7.467 (7.35-7.45); ABG TCO2 25.2 MMOL/L (23-27)
[2019-06-12 04:54] LABS: Basophils % 0.4 % (0.0-0.8); Eosinophils # 0.7 10*3/uL (0.0-0.87); Hematocrit 26.5 VOL% (35.7-47.0); Immature Granulocytes % 0.8 %; Immature Granulocytes Absolute 0.06 #; Lymphocytes # 1.6 10*3/uL (1.4-4.0); Lymphocytes % 21.3 % (21.3-54.2); Mean Corpuscular HGB Conc 30.2 GM/DL (32-36); Mean Corpuscular Volume 87.2 FL (87-102); Mean Platelet Volume 9.8 FL (9.6-12.0); Monocytes % 6.7 % (1.7-12.7); Neutrophils % 61.8 % (38.7-73.9); Platelet Count 219 T/CUMM (130-400); Red Blood Count 3.04 MC/CUMM (3.8-5.5); Red Cell Distribution Width 20.2 % (9.3-17.3); White Blood Count 7.7 T/CUMM (4-12)
[2019-06-12 04:55] LABS: Calcium 8.4 MG/DL (8.5-10.1); Osmolality,Calculated 289.5 MOS/KG (273-304)
[2019-06-12] MEDS: MEROPENEM 1,000 MG in SODIUM CHLORIDE 0.9% 100 ML IV SCH ×3 (05:18→20:10)
[2019-06-12] MEDS: INSULIN LISPRO 100 UNIT/ML SUBCUT SCH ×4 (05:30→23:22)
[2019-06-12] MEDS: FUROSEMIDE 40 MG/4 ML VIAL IV SCH (09:02)
[2019-06-12] MEDS: INSULIN GLARGINE 100 UNIT/ML SUBCUT SCH (09:02)
[2019-06-12] MEDS: LEVOTHYROXINE 25 MCG TABLET PO SCH (09:03)
[2019-06-12] MEDS: LANSOPRAZOLE ODT 30 MG TABLET PER TUBE SCH (09:03)
[2019-06-12] MEDS: LOSARTAN 50 MG TABLET PO SCH (09:03)
[2019-06-12] MEDS: PROPRANOLOL 40 MG TABLET PO SCH ×2 (09:03→20:13)
[2019-06-12] MEDS: ENOXAPARIN 40 MG/0.4 ML SYRINGE SUBCUT SCH (14:45)
[2019-06-12] MEDS: SIMVASTATIN 40 MG TABLET PO SCH (20:12)
[2019-06-12] MEDS: QUEtiapine 25 MG TABLET PO SCH (20:13)
[2019-06-13] MEDS: VANCOMYCIN INJ 1,250 MG in SODIUM CHLORIDE 0.9% 250 ML IV SCH ×2 (02:29→14:23)
[2019-06-13 02:52] LABS: Basophils % 0.4 % (0.0-0.8); Eosinophils # 0.6 10*3/uL (0.0-0.87); Eosinophils % 8.4 % (0.00-10.9); Hematocrit 24.6 VOL% (35.7-47.0); Hemoglobin 7.8 GM/DL (12.0-16.0); Immature Granulocytes % 0.3 %; Immature Granulocytes Absolute 0.02 #; Lymphocytes # 1.3 10*3/uL (1.4-4.0); Mean Corpuscular HGB Conc 31.7 GM/DL (32-36); Mean Corpuscular Volume 85.4 FL (87-102); Mean Platelet Volume 9.5 FL (9.6-12.0); Monocytes % 6.2 % (1.7-12.7); Neutrophils % 66.7 % (38.7-73.9); Platelet Count 225 T/CUMM (130-400); Red Blood Count 2.88 MC/CUMM (3.8-5.5); Red Cell Distribution Width 19.9 % (9.3-17.3); White Blood Count 7.2 T/CUMM (4-12)
[2019-06-13 03:26] LABS: Calcium 8.5 MG/DL (8.5-10.1); Osmolality,Calculated 292.7 MOS/KG (273-304)
[2019-06-13 03:46] LABS: ABG Base Excess 5.7 MMOL/L (-2.5-2.5); ABG HCO3 29.6 MMOL/L (20-26); ABG Oxygen Saturation 98.3 % (95-100); ABG PCO2 41.9 MM HG (35-48); ABG PH 7.464 (7.35-7.45); ABG TCO2 27.9 MMOL/L (23-27); Allen Test Positive; Pt O2 Delivery Device Ventilator
[2019-06-13] MEDS: PROPOFOL 1,000 MG/100 ML BOTTLE IV SCH ×4 (04:41→23:47)
[2019-06-13] MEDS: MEROPENEM 1,000 MG in SODIUM CHLORIDE 0.9% 100 ML IV SCH ×3 (04:44→19:42)
[2019-06-13] MEDS: INSULIN LISPRO 100 UNIT/ML SUBCUT SCH ×4 (06:29→23:48)
[2019-06-13] MEDS: FUROSEMIDE 40 MG/4 ML VIAL IV SCH (08:39)
[2019-06-13] MEDS: LEVOTHYROXINE 25 MCG TABLET PO SCH (08:40)
[2019-06-13] MEDS: INSULIN GLARGINE 100 UNIT/ML SUBCUT SCH (08:40)
[2019-06-13] MEDS: PROPRANOLOL 40 MG TABLET PO SCH ×2 (08:40→20:20)
[2019-06-13] MEDS: LANSOPRAZOLE ODT 30 MG TABLET PER TUBE SCH (08:40)
[2019-06-13] MEDS: LOSARTAN 50 MG TABLET PO SCH (08:40)
[2019-06-13] MEDS: ENOXAPARIN 40 MG/0.4 ML SYRINGE SUBCUT SCH (14:23)
[2019-06-13] MEDS: QUEtiapine 25 MG TABLET PO SCH (20:20)
[2019-06-13] MEDS: SIMVASTATIN 40 MG TABLET PO SCH (20:20)
[2019-06-14] MEDS: VANCOMYCIN INJ 1,250 MG in SODIUM CHLORIDE 0.9% 250 ML IV SCH ×2 (02:52→16:16)
[2019-06-14 03:01] LABS: ABG Base Excess 5.7 MMOL/L (-2.5-2.5); ABG HCO3 29.6 MMOL/L (20-26); ABG Oxygen Saturation 96.6 % (95-100); ABG PCO2 45.2 MM HG (35-48); ABG PH 7.437 (7.35-7.45); ABG PO2 84.6 MM HG (80-95); ABG TCO2 28.3 MMOL/L (23-27)
[2019-06-14 03:02] LABS: Allen Test Positive; Pt O2 Delivery Device Ventilator
[2019-06-14] MEDS: MEROPENEM 1,000 MG in SODIUM CHLORIDE 0.9% 100 ML IV SCH ×3 (04:11→21:16)
[2019-06-14 04:54] LABS: Basophils % 0.4 % (0.0-0.8); Eosinophils # 0.5 10*3/uL (0.0-0.87); Eosinophils % 6.7 % (0.00-10.9); Hematocrit 25.3 VOL% (35.7-47.0); Hemoglobin 7.6 GM/DL (12.0-16.0); Immature Granulocytes % 0.9 %; Immature Granulocytes Absolute 0.07 #; Lymphocytes # 1.5 10*3/uL (1.4-4.0); Lymphocytes % 20.5 % (21.3-54.2); Mean Corpuscular Volume 87.8 FL (87-102); Mean Platelet Volume 9.7 FL (9.6-12.0); Monocytes % 7.5 % (1.7-12.7); Platelet Count 236 T/CUMM (130-400); Red Blood Count 2.88 MC/CUMM (3.8-5.5); Red Cell Distribution Width 19.9 % (9.3-17.3); White Blood Count 7.5 T/CUMM (4-12)
[2019-06-14 05:09] LABS: Calcium 8.4 MG/DL (8.5-10.1); Osmolality,Calculated 291.5 MOS/KG (273-304)
[2019-06-14] MEDS: INSULIN LISPRO 100 UNIT/ML SUBCUT SCH ×4 (05:54→23:43)
[2019-06-14] MEDS: LOSARTAN 50 MG TABLET PO SCH (09:09)
[2019-06-14] MEDS: LANSOPRAZOLE ODT 30 MG TABLET PER TUBE SCH (09:09)
[2019-06-14] MEDS: LEVOTHYROXINE 25 MCG TABLET PO SCH (09:09)
[2019-06-14] MEDS: FLUCONAZOLE INJ 100 MG in IV BAG 1 EACH IV SCH (09:10)
[2019-06-14] MEDS: INSULIN GLARGINE 100 UNIT/ML SUBCUT SCH (09:13)
[2019-06-14] MEDS: FUROSEMIDE 40 MG/4 ML VIAL IV SCH (09:13)
[2019-06-14] MEDS: PROPRANOLOL 40 MG TABLET PO SCH ×2 (09:24→21:17)
[2019-06-14] MEDS: PROPOFOL 1,000 MG/100 ML BOTTLE IV SCH ×3 (10:01→21:17)
[2019-06-14] MEDS: LORazepam 2 MG/1 ML VIAL IV PRN (12:39)
[2019-06-14] MEDS: glipiZIDE 5 MG TABLET PO SCH ×2 (12:46→16:08)
[2019-06-14] MEDS: fentaNYL INJ 1,250 MCG in SODIUM CHLORIDE 0.9% 225 ML IV PRN (14:00)
[2019-06-14] MEDS: ENOXAPARIN 40 MG/0.4 ML SYRINGE SUBCUT SCH (15:59)
[2019-06-14] MEDS: QUEtiapine 25 MG TABLET PO SCH (21:17)
[2019-06-14] MEDS: SIMVASTATIN 40 MG TABLET PO SCH (21:17)
[2019-06-15 02:54] LABS: Basophils % 0.4 % (0.0-0.8); Eosinophils # 0.6 10*3/uL (0.0-0.87); Eosinophils % 7.1 % (0.00-10.9); Hematocrit 25.9 VOL% (35.7-47.0); Hemoglobin 8.1 GM/DL (12.0-16.0); Immature Granulocytes % 0.7 %; Immature Granulocytes Absolute 0.06 #; Lymphocytes % 24.3 % (21.3-54.2); Mean Corpuscular HGB Conc 31.3 GM/DL (32-36); Mean Corpuscular Volume 85.8 FL (87-102); Mean Platelet Volume 9.9 FL (9.6-12.0); Monocytes % 7.6 % (1.7-12.7); Neutrophils % 59.9 % (38.7-73.9); Platelet Count 261 T/CUMM (130-400); Red Blood Count 3.02 MC/CUMM (3.8-5.5); White Blood Count 8.1 T/CUMM (4-12)
[2019-06-15 03:19] LABS: Calcium 8.3 MG/DL (8.5-10.1); Osmolality,Calculated 289.4 MOS/KG (273-304)
[2019-06-15 04:20] LABS: ABG Base Excess 7.2 MMOL/L (-2.5-2.5); ABG Oxygen Saturation 98.6 % (95-100); ABG PCO2 45.8 MM HG (35-48); ABG PH 7.451 (7.35-7.45); ABG TCO2 29.9 MMOL/L (23-27); Allen Test Positive; Pt O2 Delivery Device Ventilator
[2019-06-15] MEDS: MEROPENEM 1,000 MG in SODIUM CHLORIDE 0.9% 100 ML IV SCH ×3 (04:36→21:45)
[2019-06-15] MEDS: INSULIN LISPRO 100 UNIT/ML SUBCUT SCH ×3 (05:58→18:14)
[2019-06-15] MEDS: PROPRANOLOL 40 MG TABLET PO SCH ×2 (09:16→22:11)
[2019-06-15] MEDS: glipiZIDE 5 MG TABLET PO SCH ×2 (09:16→17:30)
[2019-06-15] MEDS: LANSOPRAZOLE ODT 30 MG TABLET PER TUBE SCH (09:16)
[2019-06-15] MEDS: LOSARTAN 50 MG TABLET PO SCH (09:16)
[2019-06-15] MEDS: FUROSEMIDE 40 MG/4 ML VIAL IV SCH (09:17)
[2019-06-15] MEDS: LEVOTHYROXINE 25 MCG TABLET PO SCH (09:17)
[2019-06-15] MEDS: FLUCONAZOLE INJ 100 MG in IV BAG 1 EACH IV SCH (09:20)
[2019-06-15] MEDS ORDERED: INSULIN GLARGINE 100 UNIT/ML SUBCUT SCH (09:25)
[2019-06-15] MEDS: INSULIN GLARGINE 100 UNIT/ML SUBCUT SCH (09:46)
[2019-06-15] MEDS: VANCOMYCIN INJ 1,250 MG in SODIUM CHLORIDE 0.9% 250 ML IV SCH (11:39)
[2019-06-15] MEDS: PROPOFOL 1,000 MG/100 ML BOTTLE IV SCH (13:22)
[2019-06-15] MEDS: ENOXAPARIN 40 MG/0.4 ML SYRINGE SUBCUT SCH (14:00)
[2019-06-15] MEDS: fentaNYL INJ 1,250 MCG in SODIUM CHLORIDE 0.9% 225 ML IV PRN (16:31)
[2019-06-15] MEDS: SIMVASTATIN 40 MG TABLET PO SCH (22:11)
[2019-06-15] MEDS: QUEtiapine 25 MG TABLET PO SCH (22:11)
[2019-06-16] MEDS: INSULIN LISPRO 100 UNIT/ML SUBCUT SCH ×4 (00:43→18:58)
[2019-06-16 03:49] LABS: Basophils % 0.4 % (0.0-0.8); Eosinophils # 0.5 10*3/uL (0.0-0.87); Eosinophils % 6.1 % (0.00-10.9); Hematocrit 24.2 VOL% (35.7-47.0); Hemoglobin 7.4 GM/DL (12.0-16.0); Immature Granulocytes % 0.8 %; Immature Granulocytes Absolute 0.06 #; Lymphocytes % 25.4 % (21.3-54.2); Mean Corpuscular HGB Conc 30.6 GM/DL (32-36); Mean Corpuscular Volume 86.1 FL (87-102); Mean Platelet Volume 9.8 FL (9.6-12.0); Monocytes % 6.9 % (1.7-12.7); Neutrophils % 60.4 % (38.7-73.9); Platelet Count 258 T/CUMM (130-400); Red Blood Count 2.81 MC/CUMM (3.8-5.5); Red Cell Distribution Width 19.5 % (9.3-17.3); White Blood Count 7.8 T/CUMM (4-12)
[2019-06-16] MEDS: VANCOMYCIN INJ 1,250 MG in SODIUM CHLORIDE 0.9% 250 ML IV SCH ×2 (04:00→23:10)
[2019-06-16 04:03] LABS: Allen Test Positive; Pt O2 Delivery Device Ventilator
[2019-06-16 04:04] LABS: ABG Base Excess 8.2 MMOL/L (-2.5-2.5); ABG PCO2 45.9 MM HG (35-48); ABG PH 7.475 (7.35-7.45); ABG PO2 73.3 MM HG (80-95); ABG TCO2 34.4 MMOL/L (23-27)
[2019-06-16 04:05] LABS: ABG Oxygen Saturation 95.5 % (95-100)
[2019-06-16 04:11] LABS: Calcium 7.9 MG/DL (8.5-10.1); Osmolality,Calculated 290.4 MOS/KG (273-304)
[2019-06-16] MEDS: PROPOFOL 1,000 MG/100 ML BOTTLE IV SCH ×2 (04:33→12:55)
[2019-06-16] MEDS: MEROPENEM 1,000 MG in SODIUM CHLORIDE 0.9% 100 ML IV SCH ×3 (05:10→20:52)
[2019-06-16] MEDS: glipiZIDE 5 MG TABLET PO SCH ×2 (06:35→18:58)
[2019-06-16] MEDS ORDERED: SODIUM CHLORIDE 0.9% 1,000 ML IV PRN (08:25)
[2019-06-16] MEDS: LANSOPRAZOLE ODT 30 MG TABLET PER TUBE SCH (08:44)
[2019-06-16] MEDS: LEVOTHYROXINE 25 MCG TABLET PO SCH (08:45)
[2019-06-16] MEDS: INSULIN GLARGINE 100 UNIT/ML SUBCUT SCH (08:45)
[2019-06-16] MEDS: FUROSEMIDE 40 MG/4 ML VIAL IV SCH (08:45)
[2019-06-16] MEDS: PROPRANOLOL 40 MG TABLET PO SCH ×2 (08:45→21:51)
[2019-06-16] MEDS: LOSARTAN 50 MG TABLET PO SCH (08:45)
[2019-06-16] MEDS: FLUCONAZOLE INJ 100 MG in IV BAG 1 EACH IV SCH (08:48)
[2019-06-16] MEDS: fentaNYL INJ 1,250 MCG in SODIUM CHLORIDE 0.9% 225 ML IV PRN (13:18)
[2019-06-16] MEDS: ENOXAPARIN 40 MG/0.4 ML SYRINGE SUBCUT SCH (15:58)
[2019-06-16] MEDS: QUEtiapine 25 MG TABLET PO SCH (21:51)
[2019-06-16] MEDS: SIMVASTATIN 40 MG TABLET PO SCH (21:51)
[2019-06-17] MEDS: INSULIN LISPRO 100 UNIT/ML SUBCUT SCH ×4 (01:18→17:21)
[2019-06-17 03:13] LABS: ABG Base Excess 6.5 MMOL/L (-2.5-2.5); ABG HCO3 30.3 MMOL/L (20-26); ABG Oxygen Saturation 93.8 % (95-100); ABG PCO2 45.5 MM HG (35-48); ABG PH 7.447 (7.35-7.45); ABG PO2 69.1 MM HG (80-95); ABG TCO2 28.2 MMOL/L (23-27); Allen Test Positive; Pt O2 Delivery Device Ventilator
[2019-06-17 04:08] LABS: Basophils % 0.5 % (0.0-0.8); Eosinophils # 0.5 10*3/uL (0.0-0.87); Eosinophils % 5.7 % (0.00-10.9); Hematocrit 31.6 VOL% (35.7-47.0); Hemoglobin 10.1 GM/DL (12.0-16.0); Immature Granulocytes % 0.8 %; Immature Granulocytes Absolute 0.07 #; Lymphocytes # 1.7 10*3/uL (1.4-4.0); Lymphocytes % 20.2 % (21.3-54.2); Mean Corpuscular Volume 85.9 FL (87-102); Mean Platelet Volume 9.6 FL (9.6-12.0); Monocytes % 7.4 % (1.7-12.7); Neutrophils % 65.4 % (38.7-73.9); Platelet Count 293 T/CUMM (130-400); Red Blood Count 3.68 MC/CUMM (3.8-5.5); Red Cell Distribution Width 18.4 % (9.3-17.3); White Blood Count 8.5 T/CUMM (4-12)
[2019-06-17 04:40] LABS: Calcium 7.9 MG/DL (8.5-10.1); Osmolality,Calculated 285.7 MOS/KG (273-304)
[2019-06-17] MEDS: MEROPENEM 1,000 MG in SODIUM CHLORIDE 0.9% 100 ML IV SCH ×3 (05:35→20:08)
[2019-06-17] MEDS: PROPOFOL 1,000 MG/100 ML BOTTLE IV SCH ×2 (07:50→15:46)
[2019-06-17] MEDS: LEVOTHYROXINE 25 MCG TABLET PO SCH (08:05)
[2019-06-17] MEDS: glipiZIDE 5 MG TABLET PO SCH ×2 (08:05→17:21)
[2019-06-17] MEDS: PROPRANOLOL 40 MG TABLET PO SCH ×2 (08:05→20:13)
[2019-06-17] MEDS: LOSARTAN 50 MG TABLET PO SCH (08:06)
[2019-06-17] MEDS: LANSOPRAZOLE ODT 30 MG TABLET PER TUBE SCH (08:06)
[2019-06-17] MEDS: FUROSEMIDE 40 MG/4 ML VIAL IV SCH (08:07)
[2019-06-17] MEDS: INSULIN GLARGINE 100 UNIT/ML SUBCUT SCH (08:09)
[2019-06-17] MEDS: FLUCONAZOLE INJ 100 MG in IV BAG 1 EACH IV SCH (08:10)
[2019-06-17] MEDS: fentaNYL INJ 1,250 MCG in SODIUM CHLORIDE 0.9% 225 ML IV PRN (09:04)
[2019-06-17] MEDS: ENOXAPARIN 40 MG/0.4 ML SYRINGE SUBCUT SCH (15:46)
[2019-06-17] MEDS ORDERED: FUROSEMIDE 40 MG/4 ML VIAL IV ONE (16:00)
[2019-06-17] MEDS: VANCOMYCIN INJ 1,250 MG in SODIUM CHLORIDE 0.9% 250 ML IV SCH (17:21)
[2019-06-17] MEDS: QUEtiapine 25 MG TABLET PO SCH (20:09)
[2019-06-17] MEDS: SIMVASTATIN 40 MG TABLET PO SCH (20:09)
[2019-06-18] MEDS: INSULIN LISPRO 100 UNIT/ML SUBCUT SCH ×3 (00:04→11:31)
[2019-06-18 03:49] LABS: ABG HCO3 31.8 MMOL/L (20-26); ABG Oxygen Saturation 98.4 % (95-100); ABG PCO2 44.3 MM HG (35-48); ABG PH 7.473 (7.35-7.45); ABG TCO2 29.7 MMOL/L (23-27); Allen Test Positive; Pt O2 Delivery Device Ventilator
[2019-06-18] MEDS: fentaNYL INJ 1,250 MCG in SODIUM CHLORIDE 0.9% 225 ML IV PRN ×2 (04:05→20:52)
[2019-06-18] MEDS: MEROPENEM 1,000 MG in SODIUM CHLORIDE 0.9% 100 ML IV SCH (04:10)
[2019-06-18] MEDS: ACETAMINOPHEN 325 MG TABLET PO PRN (04:35)
[2019-06-18 05:52] LABS: Basophils % 0.3 % (0.0-0.8); Eosinophils # 0.5 10*3/uL (0.0-0.87); Eosinophils % 4.9 % (0.00-10.9); Hematocrit 29.7 VOL% (35.7-47.0); Hemoglobin 9.4 GM/DL (12.0-16.0); Immature Granulocytes % 0.5 %; Immature Granulocytes Absolute 0.05 #; Lymphocytes # 1.4 10*3/uL (1.4-4.0); Lymphocytes % 15.4 % (21.3-54.2); Mean Corpuscular HGB Conc 31.6 GM/DL (32-36); Mean Corpuscular Volume 86.1 FL (87-102); Mean Platelet Volume 9.5 FL (9.6-12.0); Monocytes % 6.5 % (1.7-12.7); Neutrophils % 72.4 % (38.7-73.9); Platelet Count 279 T/CUMM (130-400); Red Blood Count 3.45 MC/CUMM (3.8-5.5); Red Cell Distribution Width 18.5 % (9.3-17.3); White Blood Count 9.3 T/CUMM (4-12)
[2019-06-18 06:23] LABS: Calcium 8.2 MG/DL (8.5-10.1); Osmolality,Calculated 287.7 MOS/KG (273-304)
[2019-06-18 06:27] LABS: Prealbumin 7.5 MG/DL (20-40)
[2019-06-18] MEDS: glipiZIDE 5 MG TABLET PO SCH ×2 (08:08→15:59)
[2019-06-18] MEDS: PROPRANOLOL 40 MG TABLET PO SCH ×2 (08:08→20:56)
[2019-06-18] MEDS: LEVOTHYROXINE 25 MCG TABLET PO SCH (08:08)
[2019-06-18] MEDS: INSULIN GLARGINE 100 UNIT/ML SUBCUT SCH (08:08)
[2019-06-18] MEDS: LANSOPRAZOLE ODT 30 MG TABLET PER TUBE SCH (08:08)
[2019-06-18] MEDS: FUROSEMIDE 40 MG/4 ML VIAL IV SCH (08:09)
[2019-06-18] MEDS: SPIRONOLACTONE 25 MG TABLET PO SCH ×2 (08:38→20:57)
[2019-06-18] MEDS: FLUCONAZOLE INJ 100 MG in IV BAG 1 EACH IV SCH (08:42)
[2019-06-18] MEDS ORDERED: NITROGLYCERIN 2% OINT 1 INCH/GM PACK TOP SCH (09:00)
[2019-06-18] MEDS: MEROPENEM 500 MG in SODIUM CHLORIDE 0.9% 100 ML IV SCH ×3 (09:00→20:53)
[2019-06-18] MEDS ORDERED: metOLazone 2.5 MG TABLET PO SCH (09:00)
[2019-06-18] MEDS: PROPOFOL 1,000 MG/100 ML BOTTLE IV SCH ×2 (09:11→13:55)
[2019-06-18] MEDS: ALBUMIN 25% 25 GM in PREMIX 1 EACH IV SCH ×2 (09:40→15:54)
[2019-06-18 11:19] LABS: Apearance,Urine CLEAR (Clear); Bilirubin,Urine Negative (Negative); Blood, Urine Small mg/dL (Negative); Glucose,Urine (UA) Negative (Negative); Ketones,Urine Negative (Negative); Mucus,Urine Occasional /LPF (Occasional); Nitrite,Urine Negative (Negative); Protein,Urine 30 MG/DL; RBC,Urine 2 /HPF (0-4); Urine Color Yellow (Yellow); Urine Specific Gravity 1.012 (1.001-1.035); Urine Urobilinogen < 2.0 EU/DL (0.2-1.0)
[2019-06-18] MEDS: NITROGLYCERIN 2% OINT 1 INCH/GM PACK TOP SCH ×2 (11:32→20:57)
[2019-06-18] MEDS: ENOXAPARIN 40 MG/0.4 ML SYRINGE SUBCUT SCH (13:55)
[2019-06-18] MEDS: metOLazone 2.5 MG TABLET PO SCH (13:55)
[2019-06-18] MEDS: QUEtiapine 25 MG TABLET PO SCH (20:57)
[2019-06-18] MEDS: SIMVASTATIN 40 MG TABLET PO SCH (20:57)
[2019-06-19] MEDS: INSULIN LISPRO 100 UNIT/ML SUBCUT SCH ×6 (00:06→23:50)
[2019-06-19] MEDS: ALBUMIN 25% 25 GM in PREMIX 1 EACH IV SCH ×3 (00:21→17:23)
[2019-06-19] MEDS: NIFEdipine 10 MG CAPSULE PO PRN (01:34)
[2019-06-19] MEDS: MEROPENEM 500 MG in SODIUM CHLORIDE 0.9% 100 ML IV SCH ×4 (01:45→21:28)
[2019-06-19 04:03] LABS: ABG Base Excess 7.5 MMOL/L (-2.5-2.5); ABG HCO3 31.2 MMOL/L (20-26); ABG Oxygen Saturation 92.5 % (95-100); ABG PCO2 47.5 MM HG (35-48); ABG PH 7.447 (7.35-7.45); ABG PO2 66.3 MM HG (80-95); ABG TCO2 29.1 MMOL/L (23-27); Allen Test Positive; Pt O2 Delivery Device Ventilator
[2019-06-19 05:22] LABS: Basophils % 0.2 % (0.0-0.8); Eosinophils # 0.7 10*3/uL (0.0-0.87); Eosinophils % 7.5 % (0.00-10.9); Hematocrit 30.2 VOL% (35.7-47.0); Hemoglobin 9.3 GM/DL (12.0-16.0); Immature Granulocytes % 0.7 %; Immature Granulocytes Absolute 0.06 #; Lymphocytes # 1.3 10*3/uL (1.4-4.0); Lymphocytes % 14.7 % (21.3-54.2); Mean Corpuscular HGB Conc 30.8 GM/DL (32-36); Mean Corpuscular Volume 87.5 FL (87-102); Mean Platelet Volume 9.6 FL (9.6-12.0); Monocytes % 6.6 % (1.7-12.7); Neutrophils % 70.3 % (38.7-73.9); Platelet Count 295 T/CUMM (130-400); Red Blood Count 3.45 MC/CUMM (3.8-5.5); Red Cell Distribution Width 18.1 % (9.3-17.3); White Blood Count 8.7 T/CUMM (4-12)
[2019-06-19 05:51] LABS: Calcium 8.6 MG/DL (8.5-10.1); Osmolality,Calculated 280.2 MOS/KG (273-304)
[2019-06-19] MEDS: FLUCONAZOLE INJ 100 MG in IV BAG 1 EACH IV SCH (08:34)
[2019-06-19] MEDS: NITROGLYCERIN 2% OINT 1 INCH/GM PACK TOP SCH ×2 (08:34→21:28)
[2019-06-19] MEDS: INSULIN GLARGINE 100 UNIT/ML SUBCUT SCH (08:34)
[2019-06-19] MEDS: LEVOTHYROXINE 25 MCG TABLET PO SCH (08:35)
[2019-06-19] MEDS: PROPRANOLOL 40 MG TABLET PO SCH ×2 (08:35→21:27)
[2019-06-19] MEDS: LANSOPRAZOLE ODT 30 MG TABLET PER TUBE SCH (08:36)
[2019-06-19] MEDS: SPIRONOLACTONE 25 MG TABLET PO SCH ×2 (08:36→21:27)
[2019-06-19] MEDS: glipiZIDE 5 MG TABLET PO SCH ×2 (08:36→18:22)
[2019-06-19] MEDS: FUROSEMIDE 40 MG/4 ML VIAL IV SCH (08:46)
[2019-06-19] MEDS: PROPOFOL 1,000 MG/100 ML BOTTLE IV SCH ×2 (09:17→14:59)
[2019-06-19] MEDS: ALBUTEROL 2.5 MG/3 ML NEB RESP TX SCH ×5 (10:14→23:28)
[2019-06-19] MEDS: MULTIVITAMIN LIQUID (CENTRUM) 60 ML BOTTLE PER TUBE SCH (12:56)
[2019-06-19] MEDS: ENOXAPARIN 40 MG/0.4 ML SYRINGE SUBCUT SCH (15:04)
[2019-06-19] MEDS: metOLazone 2.5 MG TABLET PO SCH (15:05)
[2019-06-19] MEDS: fentaNYL INJ 1,250 MCG in SODIUM CHLORIDE 0.9% 225 ML IV PRN (18:41)
[2019-06-19] MEDS: QUEtiapine 25 MG TABLET PO SCH (21:27)
[2019-06-19] MEDS: SIMVASTATIN 40 MG TABLET PO SCH (21:28)
[2019-06-20] MEDS: ALBUMIN 25% 25 GM in PREMIX 1 EACH IV SCH ×4 (02:06→23:40)
[2019-06-20] MEDS: PROPOFOL 1,000 MG/100 ML BOTTLE IV SCH ×4 (02:32→17:28)
[2019-06-20] MEDS: ALBUTEROL 2.5 MG/3 ML NEB RESP TX SCH ×6 (03:05→23:16)
[2019-06-20] MEDS: MEROPENEM 500 MG in SODIUM CHLORIDE 0.9% 100 ML IV SCH ×4 (03:23→20:36)
[2019-06-20 04:03] LABS: ABG Base Excess 7.4 MMOL/L (-2.5-2.5); ABG HCO3 31.1 MMOL/L (20-26); ABG Oxygen Saturation 93.6 % (95-100); ABG PH 7.415 (7.35-7.45); ABG PO2 70.4 MM HG (80-95); ABG TCO2 29.9 MMOL/L (23-27); Pt O2 Delivery Device Ventilator
[2019-06-20] MEDS: INSULIN LISPRO 100 UNIT/ML SUBCUT SCH ×4 (06:16→23:48)
[2019-06-20] MEDS: INSULIN GLARGINE 100 UNIT/ML SUBCUT SCH (08:36)
[2019-06-20] MEDS: LANSOPRAZOLE ODT 30 MG TABLET PER TUBE SCH (08:37)
[2019-06-20] MEDS: LEVOTHYROXINE 25 MCG TABLET PO SCH (08:37)
[2019-06-20] MEDS: NITROGLYCERIN 2% OINT 1 INCH/GM PACK TOP SCH ×2 (08:37→20:37)
[2019-06-20] MEDS: SPIRONOLACTONE 25 MG TABLET PO SCH ×2 (08:37→20:37)
[2019-06-20] MEDS: PROPRANOLOL 40 MG TABLET PO SCH ×2 (08:37→20:37)
[2019-06-20] MEDS: FUROSEMIDE 40 MG/4 ML VIAL IV SCH (08:45)
[2019-06-20] MEDS: MULTIVITAMIN LIQUID (CENTRUM) 60 ML BOTTLE PER TUBE SCH (09:04)
[2019-06-20] MEDS: glipiZIDE 5 MG TABLET PO SCH ×2 (12:30→15:56)
[2019-06-20] MEDS: FLUCONAZOLE INJ 100 MG in IV BAG 1 EACH IV SCH (12:38)
[2019-06-20] MEDS: metOLazone 2.5 MG TABLET PO SCH (13:39)
[2019-06-20] MEDS: ENOXAPARIN 40 MG/0.4 ML SYRINGE SUBCUT SCH (13:39)
[2019-06-20] MEDS: fentaNYL INJ 1,250 MCG in SODIUM CHLORIDE 0.9% 225 ML IV PRN (15:00)
[2019-06-20] MEDS: QUEtiapine 25 MG TABLET PO SCH (20:37)
[2019-06-20] MEDS: SIMVASTATIN 40 MG TABLET PO SCH (20:37)
[2019-06-21] MEDS: MEROPENEM 500 MG in SODIUM CHLORIDE 0.9% 100 ML IV SCH ×4 (02:56→21:10)
[2019-06-21] MEDS: ALBUTEROL 2.5 MG/3 ML NEB RESP TX SCH ×6 (03:14→23:34)
[2019-06-21 04:15] LABS: ABG Base Excess 6.9 MMOL/L (-2.5-2.5); ABG PCO2 58.2 MM HG (35-48); ABG PH 7.384 (7.35-7.45); ABG PO2 83.5 MM HG (80-95); ABG TCO2 35.8 MMOL/L (23-27); Allen Test Positive; Pt O2 Delivery Device Ventilator
[2019-06-21] MEDS: PROPOFOL 1,000 MG/100 ML BOTTLE IV SCH ×3 (04:27→18:22)
[2019-06-21] MEDS: INSULIN LISPRO 100 UNIT/ML SUBCUT SCH ×3 (05:30→18:16)
[2019-06-21 05:31] LABS: Calcium 9.1 MG/DL (8.5-10.1); Prealbumin 8.2 MG/DL (20-40)
[2019-06-21 06:28] LABS: ABG Oxygen Saturation 95.9 % (95-100)
[2019-06-21] MEDS: ALBUMIN 25% 25 GM in PREMIX 1 EACH IV SCH ×2 (09:05→16:46)
[2019-06-21] MEDS: NITROGLYCERIN 2% OINT 1 INCH/GM PACK TOP SCH ×2 (09:05→21:11)
[2019-06-21] MEDS: INSULIN GLARGINE 100 UNIT/ML SUBCUT SCH (09:05)
[2019-06-21] MEDS: LANSOPRAZOLE ODT 30 MG TABLET PER TUBE SCH (09:06)
[2019-06-21] MEDS: PROPRANOLOL 40 MG TABLET PO SCH ×2 (09:06→21:10)
[2019-06-21] MEDS: LEVOTHYROXINE 25 MCG TABLET PO SCH (09:06)
[2019-06-21] MEDS: FLUCONAZOLE INJ 100 MG in IV BAG 1 EACH IV SCH (09:06)
[2019-06-21] MEDS: glipiZIDE 5 MG TABLET PO SCH ×2 (09:06→17:00)
[2019-06-21] MEDS: SPIRONOLACTONE 25 MG TABLET PO SCH ×2 (09:06→21:10)
[2019-06-21] MEDS: MULTIVITAMIN LIQUID (CENTRUM) 60 ML BOTTLE PER TUBE SCH (09:15)
[2019-06-21] MEDS: fentaNYL INJ 1,250 MCG in SODIUM CHLORIDE 0.9% 225 ML IV PRN (09:22)
[2019-06-21] MEDS: FUROSEMIDE 40 MG/4 ML VIAL IV SCH (09:24)
[2019-06-21 11:53] LABS: ABG Base Excess 8.5 MMOL/L (-2.5-2.5); ABG HCO3 34.2 MMOL/L (20-26); ABG Oxygen Saturation 91.1 % (95-100); ABG PCO2 54.5 MM HG (35-48); ABG PH 7.416 (7.35-7.45); ABG PO2 70.2 MM HG (80-95); ABG TCO2 35.9 MMOL/L (23-27); Pt O2 Delivery Device Ventilator
[2019-06-21] MEDS ORDERED: FUROSEMIDE 40 MG/4 ML VIAL IV ONE (12:03)
[2019-06-21] MEDS: metOLazone 2.5 MG TABLET PO SCH (14:52)
[2019-06-21] MEDS: ENOXAPARIN 40 MG/0.4 ML SYRINGE SUBCUT SCH (14:52)
[2019-06-21] MEDS: methylPREDNISolone SOD SUC 40 MG/1 ML VIAL IV SCH ×2 (16:46→23:15)
[2019-06-21] MEDS: SIMVASTATIN 40 MG TABLET PO SCH (21:10)
[2019-06-21] MEDS: QUEtiapine 25 MG TABLET PO SCH (21:10)
[2019-06-22] MEDS: ALBUMIN 25% 25 GM in PREMIX 1 EACH IV SCH ×3 (00:01→16:29)
[2019-06-22] MEDS: INSULIN LISPRO 100 UNIT/ML SUBCUT SCH ×5 (02:10→21:15)
[2019-06-22] MEDS: MEROPENEM 500 MG in SODIUM CHLORIDE 0.9% 100 ML IV SCH ×3 (02:10→14:30)
[2019-06-22] MEDS: PROPOFOL 1,000 MG/100 ML BOTTLE IV SCH ×4 (02:51→19:30)
[2019-06-22] MEDS: fentaNYL INJ 1,250 MCG in SODIUM CHLORIDE 0.9% 225 ML IV PRN ×2 (02:52→17:18)
[2019-06-22 03:29] LABS: ABG Base Excess 4.8 MMOL/L (-2.5-2.5); ABG HCO3 28.8 MMOL/L (20-26); ABG Oxygen Saturation 97.2 % (95-100); ABG PCO2 60.2 MM HG (35-48); ABG PH 7.335 (7.35-7.45); ABG TCO2 29.6 MMOL/L (23-27); Allen Test Positive; Pt O2 Delivery Device Ventilator
[2019-06-22] MEDS: ALBUTEROL 2.5 MG/3 ML NEB RESP TX SCH ×6 (03:37→22:30)
[2019-06-22] MEDS: methylPREDNISolone SOD SUC 40 MG/1 ML VIAL IV SCH ×4 (05:15→21:15)
[2019-06-22] MEDS: NIFEdipine 10 MG CAPSULE PO PRN (05:44)
[2019-06-22 06:13] LABS: Basophils % 0.2 % (0.0-0.8); Hematocrit 30.7 VOL% (35.7-47.0); Hemoglobin 9.5 GM/DL (12.0-16.0); Immature Granulocytes % 0.6 %; Immature Granulocytes Absolute 0.03 #; Lymphocytes # 0.6 10*3/uL (1.4-4.0); Mean Corpuscular HGB Conc 30.9 GM/DL (32-36); Mean Corpuscular Volume 87.2 FL (87-102); Mean Platelet Volume 9.9 FL (9.6-12.0); Monocytes % 2.3 % (1.7-12.7); Neutrophils % 83.9 % (38.7-73.9); Platelet Count 313 T/CUMM (130-400); Red Blood Count 3.52 MC/CUMM (3.8-5.5); Red Cell Distribution Width 17.7 % (9.3-17.3); White Blood Count 4.8 T/CUMM (4-12)
[2019-06-22 06:40] LABS: Calcium 9.4 MG/DL (8.5-10.1); Osmolality,Calculated 304.1 MOS/KG (273-304)
[2019-06-22] MEDS: PROPRANOLOL 40 MG TABLET PO SCH ×2 (08:49→21:14)
[2019-06-22] MEDS: SPIRONOLACTONE 25 MG TABLET PO SCH ×2 (08:49→21:14)
[2019-06-22] MEDS: LEVOTHYROXINE 25 MCG TABLET PO SCH (08:49)
[2019-06-22] MEDS: glipiZIDE 5 MG TABLET PO SCH ×2 (08:49→17:13)
[2019-06-22] MEDS: MULTIVITAMIN LIQUID (CENTRUM) 60 ML BOTTLE PER TUBE SCH (08:51)
[2019-06-22] MEDS: INSULIN GLARGINE 100 UNIT/ML SUBCUT SCH (08:51)
[2019-06-22] MEDS: LANSOPRAZOLE ODT 30 MG TABLET PER TUBE SCH (08:52)
[2019-06-22] MEDS: NITROGLYCERIN 2% OINT 1 INCH/GM PACK TOP SCH ×2 (08:52→21:14)
[2019-06-22] MEDS: FLUCONAZOLE INJ 100 MG in IV BAG 1 EACH IV SCH (08:56)
[2019-06-22] MEDS ORDERED: INSULIN LISPRO 100 UNIT/ML SUBCUT SCH (10:00)
[2019-06-22] MEDS: metOLazone 2.5 MG TABLET PO SCH (14:30)
[2019-06-22] MEDS: LEVOFLOXACIN INJ 750 MG in PREMIX 1 EACH IV SCH (14:46)
[2019-06-22] MEDS: VANCOMYCIN INJ 1,250 MG in SODIUM CHLORIDE 0.9% 250 ML IV SCH (16:31)
[2019-06-22] MEDS: MICAFUNGIN 100 MG in SODIUM CHLORIDE 0.9% 100 ML IV SCH (18:13)
[2019-06-22] MEDS: SIMVASTATIN 40 MG TABLET PO SCH (21:14)
[2019-06-22] MEDS: QUEtiapine 25 MG TABLET PO SCH (21:15)
[2019-06-23] MEDS: INSULIN LISPRO 100 UNIT/ML SUBCUT SCH ×6 (00:11→21:14)
[2019-06-23] MEDS: ALBUMIN 25% 25 GM in PREMIX 1 EACH IV SCH ×3 (00:14→15:36)
[2019-06-23] MEDS: PROPOFOL 1,000 MG/100 ML BOTTLE IV SCH ×4 (01:33→18:44)
[2019-06-23] MEDS: ALBUTEROL 2.5 MG/3 ML NEB RESP TX SCH ×6 (02:28→23:30)
[2019-06-23 04:10] LABS: ABG Base Excess 7.5 MMOL/L (-2.5-2.5); ABG HCO3 33.3 MMOL/L (20-26); ABG Oxygen Saturation 96.5 % (95-100); ABG PCO2 54.4 MM HG (35-48); ABG PH 7.405 (7.35-7.45); ABG PO2 97.9 MM HG (80-95); Allen Test Positive; Pt O2 Delivery Device Ventilator
[2019-06-23] MEDS: methylPREDNISolone SOD SUC 40 MG/1 ML VIAL IV SCH ×4 (04:52→22:33)
[2019-06-23] MEDS: fentaNYL INJ 1,250 MCG in SODIUM CHLORIDE 0.9% 225 ML IV PRN ×2 (05:23→16:45)
[2019-06-23] MEDS ORDERED: LIDOCAINE 1% 20 ML VIAL MISC INJ ONE (07:30)
[2019-06-23] MEDS ORDERED: LIDOCAINE 2% VISCOUS 100 ML BOTTLE SWISH/SPIT ONE (07:30)
[2019-06-23] MEDS ORDERED: MIDAZOLAM 2 MG/2 ML VIAL IV ONE (07:30)
[2019-06-23] MEDS ORDERED: LIDOCAINE 2% 20 ML VIAL RESP TX ONE (07:30)
[2019-06-23] MEDS: PROPRANOLOL 40 MG TABLET PO SCH ×2 (08:30→21:17)
[2019-06-23] MEDS: LEVOTHYROXINE 25 MCG TABLET PO SCH (08:30)
[2019-06-23] MEDS: LANSOPRAZOLE ODT 30 MG TABLET PER TUBE SCH (08:30)
[2019-06-23] MEDS: NITROGLYCERIN 2% OINT 1 INCH/GM PACK TOP SCH ×2 (08:31→21:19)
[2019-06-23] MEDS: INSULIN GLARGINE 100 UNIT/ML SUBCUT SCH (08:32)
[2019-06-23] MEDS: SPIRONOLACTONE 25 MG TABLET PO SCH ×2 (08:33→21:17)
[2019-06-23] MEDS: glipiZIDE 5 MG TABLET PO SCH ×2 (08:33→16:04)
[2019-06-23] MEDS: NIFEdipine 10 MG CAPSULE PO PRN (08:51)
[2019-06-23 09:05] LABS: Osmolality,Calculated 312.4 MOS/KG (273-304)
[2019-06-23] MEDS: MULTIVITAMIN LIQUID (CENTRUM) 60 ML BOTTLE PER TUBE SCH (09:22)
[2019-06-23] MEDS: ENOXAPARIN 40 MG/0.4 ML SYRINGE SUBCUT SCH (13:56)
[2019-06-23] MEDS: MICAFUNGIN 100 MG in SODIUM CHLORIDE 0.9% 100 ML IV SCH (14:03)
[2019-06-23] MEDS: VANCOMYCIN INJ 1,250 MG in SODIUM CHLORIDE 0.9% 250 ML IV SCH (16:55)
[2019-06-23] MEDS: SIMVASTATIN 40 MG TABLET PO SCH (21:17)
[2019-06-23] MEDS: QUEtiapine 25 MG TABLET PO SCH (21:18)
[2019-06-24] MEDS: PROPOFOL 1,000 MG/100 ML BOTTLE IV SCH ×5 (00:30→17:45)
[2019-06-24] MEDS: ALBUMIN 25% 25 GM in PREMIX 1 EACH IV SCH ×4 (00:31→23:31)
[2019-06-24] MEDS: INSULIN LISPRO 100 UNIT/ML SUBCUT SCH ×7 (00:37→23:31)
[2019-06-24] MEDS: NIFEdipine 10 MG CAPSULE PO PRN ×3 (00:39→22:53)
[2019-06-24] MEDS: ALBUTEROL 2.5 MG/3 ML NEB RESP TX SCH ×6 (02:20→23:40)
[2019-06-24 04:25] LABS: ABG Base Excess 5.9 MMOL/L (-2.5-2.5); ABG HCO3 31.7 MMOL/L (20-26); ABG Oxygen Saturation 98.6 % (95-100); ABG PCO2 53.6 MM HG (35-48); ABG PO2 176.9 MM HG (80-95); ABG TCO2 33.4 MMOL/L (23-27); Allen Test Positive; Pt O2 Delivery Device Ventilator
[2019-06-24] MEDS: methylPREDNISolone SOD SUC 40 MG/1 ML VIAL IV SCH ×4 (04:27→21:53)
[2019-06-24] MEDS: fentaNYL INJ 1,250 MCG in SODIUM CHLORIDE 0.9% 225 ML IV PRN ×2 (05:36→17:46)
[2019-06-24 06:19] LABS: Hemoglobin 8.1 GM/DL (12.0-16.0); Immature Granulocytes % 0.5 %; Immature Granulocytes Absolute 0.04 #; Lymphocytes # 0.5 10*3/uL (1.4-4.0); Lymphocytes % 6.6 % (21.3-54.2); Mean Corpuscular HGB Conc 31.2 GM/DL (32-36); Mean Corpuscular Volume 88.1 FL (87-102); Mean Platelet Volume 10.2 FL (9.6-12.0); Monocytes % 6.3 % (1.7-12.7); Neutrophils % 86.6 % (38.7-73.9); Platelet Count 337 T/CUMM (130-400); Red Blood Count 2.95 MC/CUMM (3.8-5.5); Red Cell Distribution Width 18.5 % (9.3-17.3); White Blood Count 7.4 T/CUMM (4-12)
[2019-06-24 06:41] LABS: Calcium 10.1 MG/DL (8.5-10.1); Osmolality,Calculated 319.1 MOS/KG (273-304)
[2019-06-24 06:44] LABS: Prealbumin 14.2 MG/DL (20-40)
[2019-06-24] MEDS: LEVOTHYROXINE 25 MCG TABLET PO SCH (08:13)
[2019-06-24] MEDS: NITROGLYCERIN 2% OINT 1 INCH/GM PACK TOP SCH ×2 (08:13→20:54)
[2019-06-24] MEDS: PROPRANOLOL 40 MG TABLET PO SCH ×2 (08:13→20:52)
[2019-06-24] MEDS: glipiZIDE 5 MG TABLET PO SCH ×2 (08:13→16:48)
[2019-06-24] MEDS: LANSOPRAZOLE ODT 30 MG TABLET PER TUBE SCH (08:14)
[2019-06-24] MEDS: MULTIVITAMIN LIQUID (CENTRUM) 60 ML BOTTLE PER TUBE SCH (08:14)
[2019-06-24] MEDS: INSULIN GLARGINE 100 UNIT/ML SUBCUT SCH (08:15)
[2019-06-24] MEDS: SPIRONOLACTONE 25 MG TABLET PO SCH ×2 (08:16→20:52)
[2019-06-24] MEDS: ENOXAPARIN 40 MG/0.4 ML SYRINGE SUBCUT SCH (13:40)
[2019-06-24] MEDS: LEVOFLOXACIN INJ 750 MG in PREMIX 1 EACH IV SCH (13:41)
[2019-06-24] MEDS: MICAFUNGIN 100 MG in SODIUM CHLORIDE 0.9% 100 ML IV SCH (15:22)
[2019-06-24] MEDS: VANCOMYCIN INJ 1,250 MG in SODIUM CHLORIDE 0.9% 250 ML IV SCH (16:35)
[2019-06-24] MEDS: SIMVASTATIN 40 MG TABLET PO SCH (20:52)
[2019-06-24] MEDS: QUEtiapine 25 MG TABLET PO SCH (20:52)
[2019-06-25] MEDS: ALBUTEROL 2.5 MG/3 ML NEB RESP TX SCH ×5 (03:20→19:21)
[2019-06-25] MEDS: methylPREDNISolone SOD SUC 40 MG/1 ML VIAL IV SCH ×4 (04:25→21:20)
[2019-06-25] MEDS: INSULIN LISPRO 100 UNIT/ML SUBCUT SCH ×5 (04:25→21:34)
[2019-06-25 04:30] LABS: ABG Oxygen Saturation 99.2 % (95-100); ABG PCO2 53.2 MM HG (35-48); ABG PH 7.376 (7.35-7.45); ABG TCO2 28.9 MMOL/L (23-27); Allen Test Positive; Pt O2 Delivery Device Ventilator
[2019-06-25 04:49] LABS: Hematocrit 28.3 VOL% (35.7-47.0); Hemoglobin 8.4 GM/DL (12.0-16.0); Immature Granulocytes % 1.9 %; Immature Granulocytes Absolute 0.12 #; Lymphocytes # 0.6 10*3/uL (1.4-4.0); Lymphocytes % 9.8 % (21.3-54.2); Mean Corpuscular HGB Conc 29.7 GM/DL (32-36); Mean Corpuscular Volume 90.7 FL (87-102); Mean Platelet Volume 9.8 FL (9.6-12.0); Monocytes % 10.4 % (1.7-12.7); Neutrophils % 77.9 % (38.7-73.9); Platelet Count 327 T/CUMM (130-400); Red Blood Count 3.12 MC/CUMM (3.8-5.5); Red Cell Distribution Width 18.6 % (9.3-17.3); White Blood Count 6.2 T/CUMM (4-12)
[2019-06-25] MEDS: fentaNYL INJ 1,250 MCG in SODIUM CHLORIDE 0.9% 225 ML IV PRN ×2 (05:11→17:00)
[2019-06-25 05:16] LABS: Calcium 10.1 MG/DL (8.5-10.1); Osmolality,Calculated 321.7 MOS/KG (273-304)
[2019-06-25] MEDS: PROPOFOL 1,000 MG/100 ML BOTTLE IV SCH ×5 (05:44→23:55)
[2019-06-25] MEDS: glipiZIDE 5 MG TABLET PO SCH ×2 (07:55→16:00)
[2019-06-25] MEDS: INSULIN GLARGINE 100 UNIT/ML SUBCUT SCH (07:55)
[2019-06-25] MEDS: ALBUMIN 25% 25 GM in PREMIX 1 EACH IV SCH ×2 (07:55→16:00)
[2019-06-25] MEDS ORDERED: FUROSEMIDE 40 MG/4 ML VIAL IV ONE (08:39)
[2019-06-25] MEDS: SPIRONOLACTONE 25 MG TABLET PO SCH ×2 (09:30→21:19)
[2019-06-25] MEDS: MULTIVITAMIN LIQUID (CENTRUM) 60 ML BOTTLE PER TUBE SCH (09:30)
[2019-06-25] MEDS: PROPRANOLOL 40 MG TABLET PO SCH ×2 (09:30→21:19)
[2019-06-25] MEDS: NIFEdipine 10 MG CAPSULE PO PRN ×2 (09:30→17:40)
[2019-06-25] MEDS: LANSOPRAZOLE ODT 30 MG TABLET PER TUBE SCH (09:30)
[2019-06-25] MEDS: NITROGLYCERIN 2% OINT 1 INCH/GM PACK TOP SCH ×2 (09:30→21:19)
[2019-06-25] MEDS: LEVOTHYROXINE 25 MCG TABLET PO SCH (09:30)
[2019-06-25] MEDS: MICAFUNGIN 100 MG in SODIUM CHLORIDE 0.9% 100 ML IV SCH (14:30)
[2019-06-25] MEDS: ENOXAPARIN 40 MG/0.4 ML SYRINGE SUBCUT SCH (14:30)
[2019-06-25] MEDS: VANCOMYCIN INJ 1,250 MG in SODIUM CHLORIDE 0.9% 250 ML IV SCH (17:15)
[2019-06-25] MEDS: SIMVASTATIN 40 MG TABLET PO SCH (21:19)
[2019-06-25] MEDS: QUEtiapine 25 MG TABLET PO SCH (21:19)
[2019-06-26] MEDS: ALBUTEROL 2.5 MG/3 ML NEB RESP TX SCH ×7 (00:03→22:30)
[2019-06-26] MEDS: ALBUMIN 25% 25 GM in PREMIX 1 EACH IV SCH (00:35)
[2019-06-26] MEDS: INSULIN LISPRO 100 UNIT/ML SUBCUT SCH ×7 (00:57→23:50)
[2019-06-26 03:28] LABS: ABG Base Excess 5.7 MMOL/L (-2.5-2.5); ABG HCO3 29.6 MMOL/L (20-26); ABG Oxygen Saturation 99.2 % (95-100); ABG PCO2 55.2 MM HG (35-48); ABG PH 7.372 (7.35-7.45); ABG TCO2 29.8 MMOL/L (23-27); Allen Test Positive; Pt O2 Delivery Device Ventilator
[2019-06-26 04:37] LABS: Basophils % 0.2 % (0.0-0.8); Hematocrit 25.7 VOL% (35.7-47.0); Hemoglobin 7.9 GM/DL (12.0-16.0); Immature Granulocytes Absolute 0.16 #; Lymphocytes # 0.6 10*3/uL (1.4-4.0); Lymphocytes % 11.3 % (21.3-54.2); Mean Corpuscular HGB Conc 30.7 GM/DL (32-36); Mean Corpuscular Volume 90.5 FL (87-102); Monocytes % 11.9 % (1.7-12.7); Neutrophils % 73.6 % (38.7-73.9); Platelet Count 317 T/CUMM (130-400); Red Blood Count 2.84 MC/CUMM (3.8-5.5); Red Cell Distribution Width 18.6 % (9.3-17.3); White Blood Count 5.4 T/CUMM (4-12)
[2019-06-26] MEDS: methylPREDNISolone SOD SUC 40 MG/1 ML VIAL IV SCH ×2 (04:40→16:10)
[2019-06-26 05:03] LABS: Calcium 10.1 MG/DL (8.5-10.1); Osmolality,Calculated 331.4 MOS/KG (273-304)
[2019-06-26] MEDS: fentaNYL INJ 1,250 MCG in SODIUM CHLORIDE 0.9% 225 ML IV PRN ×2 (05:10→17:40)
[2019-06-26] MEDS: NIFEdipine 10 MG CAPSULE PO PRN ×3 (05:37→17:40)
[2019-06-26] MEDS: PROPOFOL 1,000 MG/100 ML BOTTLE IV SCH ×3 (06:27→19:15)
[2019-06-26] MEDS: LANSOPRAZOLE ODT 30 MG TABLET PER TUBE SCH (08:00)
[2019-06-26] MEDS: LEVOTHYROXINE 25 MCG TABLET PO SCH (08:00)
[2019-06-26] MEDS: INSULIN GLARGINE 100 UNIT/ML SUBCUT SCH (08:00)
[2019-06-26] MEDS: glipiZIDE 5 MG TABLET PO SCH ×2 (08:00→16:10)
[2019-06-26] MEDS: SPIRONOLACTONE 25 MG TABLET PO SCH ×2 (09:30→20:36)
[2019-06-26] MEDS: MULTIVITAMIN LIQUID (CENTRUM) 60 ML BOTTLE PER TUBE SCH (09:30)
[2019-06-26] MEDS: FUROSEMIDE 40 MG/4 ML VIAL IV SCH (09:30)
[2019-06-26] MEDS: NITROGLYCERIN 2% OINT 1 INCH/GM PACK TOP SCH ×2 (09:30→20:33)
[2019-06-26] MEDS: PROPRANOLOL 40 MG TABLET PO SCH ×2 (09:30→20:33)
[2019-06-26] MEDS ORDERED: cloNIDine 0.3 MG/24 HR PATCH TRANSDERM SCH (11:00)
[2019-06-26] MEDS ORDERED: methylPREDNISolone SOD SUC 40 MG/1 ML VIAL IV SCH (13:00)
[2019-06-26] MEDS: LEVOFLOXACIN INJ 750 MG in PREMIX 1 EACH IV SCH (13:50)
[2019-06-26] MEDS: ENOXAPARIN 40 MG/0.4 ML SYRINGE SUBCUT SCH (13:50)
[2019-06-26] MEDS: MICAFUNGIN 100 MG in SODIUM CHLORIDE 0.9% 100 ML IV SCH (15:50)
[2019-06-26] MEDS: VANCOMYCIN INJ 1,250 MG in SODIUM CHLORIDE 0.9% 250 ML IV SCH (16:45)
[2019-06-26] MEDS: QUEtiapine 25 MG TABLET PO SCH (20:33)
[2019-06-26] MEDS: SIMVASTATIN 40 MG TABLET PO SCH (20:36)
[2019-06-27] MEDS: ALBUTEROL 2.5 MG/3 ML NEB RESP TX SCH ×6 (02:10→23:07)
[2019-06-27] MEDS: PROPOFOL 1,000 MG/100 ML BOTTLE IV SCH ×3 (02:55→14:13)
[2019-06-27 03:37] LABS: Allen Test Positive; Pt O2 Delivery Device Ventilator
[2019-06-27 03:38] LABS: ABG Base Excess 7.3 MMOL/L (-2.5-2.5); ABG HCO3 32.3 MMOL/L (20-26); ABG Oxygen Saturation 98.3 % (95-100); ABG PCO2 48.2 MM HG (35-48); ABG PH 7.444 (7.35-7.45); ABG PO2 146.8 MM HG (80-95); ABG TCO2 33.8 MMOL/L (23-27)
[2019-06-27] MEDS: methylPREDNISolone SOD SUC 40 MG/1 ML VIAL IV SCH ×2 (04:27→16:28)
[2019-06-27] MEDS: INSULIN LISPRO 100 UNIT/ML SUBCUT SCH ×5 (04:28→19:48)
[2019-06-27 04:38] LABS: Basophils % 0.1 % (0.0-0.8); Hemoglobin 8.4 GM/DL (12.0-16.0); Immature Granulocytes % 2.1 %; Immature Granulocytes Absolute 0.19 #; Lymphocytes % 11.5 % (21.3-54.2); Mean Corpuscular Volume 89.7 FL (87-102); Mean Platelet Volume 9.4 FL (9.6-12.0); Neutrophils % 74.3 % (38.7-73.9); Platelet Count 330 T/CUMM (130-400); Red Blood Count 3.12 MC/CUMM (3.8-5.5); Red Cell Distribution Width 18.6 % (9.3-17.3); White Blood Count 8.9 T/CUMM (4-12)
[2019-06-27 04:56] LABS: Calcium 10.2 MG/DL (8.5-10.1); Osmolality,Calculated 333.3 MOS/KG (273-304)
[2019-06-27] MEDS: fentaNYL INJ 1,250 MCG in SODIUM CHLORIDE 0.9% 225 ML IV PRN (06:59)
[2019-06-27] MEDS: glipiZIDE 5 MG TABLET PO SCH ×2 (08:22→16:28)
[2019-06-27] MEDS: PROPRANOLOL 40 MG TABLET PO SCH ×4 (08:23→21:08)
[2019-06-27] MEDS: NITROGLYCERIN 2% OINT 1 INCH/GM PACK TOP SCH ×2 (08:23→21:07)
[2019-06-27] MEDS: LANSOPRAZOLE ODT 30 MG TABLET PER TUBE SCH (08:23)
[2019-06-27] MEDS: LEVOTHYROXINE 25 MCG TABLET PO SCH (08:23)
[2019-06-27] MEDS: SPIRONOLACTONE 25 MG TABLET PO SCH ×2 (08:23→21:08)
[2019-06-27] MEDS: FUROSEMIDE 40 MG/4 ML VIAL IV SCH (08:24)
[2019-06-27] MEDS: MULTIVITAMIN LIQUID (CENTRUM) 60 ML BOTTLE PER TUBE SCH (08:24)
[2019-06-27] MEDS: INSULIN GLARGINE 100 UNIT/ML SUBCUT SCH (08:24)
[2019-06-27] MEDS: NIFEdipine 10 MG CAPSULE PO PRN ×3 (11:28→23:08)
[2019-06-27] MEDS: ENOXAPARIN 40 MG/0.4 ML SYRINGE SUBCUT SCH (16:11)
[2019-06-27] MEDS: MICAFUNGIN 100 MG in SODIUM CHLORIDE 0.9% 100 ML IV SCH (16:15)
[2019-06-27] MEDS: VANCOMYCIN INJ 1,250 MG in SODIUM CHLORIDE 0.9% 250 ML IV SCH (17:16)
[2019-06-27] MEDS: hydrALAZINE 20 MG/1 ML VIAL IV PRN (19:48)
[2019-06-27] MEDS: SIMVASTATIN 40 MG TABLET PO SCH (21:08)
[2019-06-27] MEDS: QUEtiapine 25 MG TABLET PO SCH (21:08)
[2019-06-28] MEDS: INSULIN LISPRO 100 UNIT/ML SUBCUT SCH ×7 (00:21→23:44)
[2019-06-28] MEDS: hydrALAZINE 20 MG/1 ML VIAL IV PRN ×2 (01:14→16:18)
[2019-06-28] MEDS: NIFEdipine 10 MG CAPSULE PO PRN ×4 (03:16→19:57)
[2019-06-28] MEDS: methylPREDNISolone SOD SUC 40 MG/1 ML VIAL IV SCH ×2 (03:51→16:17)
[2019-06-28] MEDS: ALBUTEROL 2.5 MG/3 ML NEB RESP TX SCH ×6 (03:53→22:47)
[2019-06-28 04:03] LABS: Allen Test Positive; Pt O2 Delivery Device Ventilator
[2019-06-28 04:04] LABS: ABG Base Excess 6.6 MMOL/L (-2.5-2.5); ABG HCO3 30.5 MMOL/L (20-26); ABG Oxygen Saturation 99.5 % (95-100); ABG PCO2 42.3 MM HG (35-48); ABG PH 7.472 (7.35-7.45); ABG TCO2 27.9 MMOL/L (23-27)
[2019-06-28 05:35] LABS: Basophils % 0.2 % (0.0-0.8); Hematocrit 32.2 VOL% (35.7-47.0); Immature Granulocytes Absolute 0.39 #; Lymphocytes # 1.2 10*3/uL (1.4-4.0); Lymphocytes % 9.2 % (21.3-54.2); Mean Corpuscular HGB Conc 31.1 GM/DL (32-36); Mean Platelet Volume 9.5 FL (9.6-12.0); Monocytes % 7.8 % (1.7-12.7); Neutrophils % 79.8 % (38.7-73.9); Platelet Count 385 T/CUMM (130-400); Red Blood Count 3.66 MC/CUMM (3.8-5.5); Red Cell Distribution Width 18.6 % (9.3-17.3); White Blood Count 13.2 T/CUMM (4-12)
[2019-06-28 06:06] LABS: Calcium 10.7 MG/DL (8.5-10.1); Osmolality,Calculated 334.7 MOS/KG (273-304); Prealbumin 30.1 MG/DL (20-40)
[2019-06-28] MEDS: glipiZIDE 5 MG TABLET PO SCH ×2 (06:33→16:17)
[2019-06-28] MEDS: LEVOTHYROXINE 25 MCG TABLET PO SCH (08:50)
[2019-06-28] MEDS: PROPRANOLOL 40 MG TABLET PO SCH ×4 (08:50→21:27)
[2019-06-28] MEDS: SPIRONOLACTONE 25 MG TABLET PO SCH ×2 (08:50→21:27)
[2019-06-28] MEDS: INSULIN GLARGINE 100 UNIT/ML SUBCUT SCH (08:51)
[2019-06-28] MEDS: LANSOPRAZOLE ODT 30 MG TABLET PER TUBE SCH (08:51)
[2019-06-28] MEDS: FUROSEMIDE 40 MG/4 ML VIAL IV SCH (08:52)
[2019-06-28] MEDS: MULTIVITAMIN LIQUID (CENTRUM) 60 ML BOTTLE PER TUBE SCH (08:53)
[2019-06-28] MEDS: NITROGLYCERIN 2% OINT 1 INCH/GM PACK TOP SCH ×2 (09:15→21:27)
[2019-06-28] MEDS: ENOXAPARIN 40 MG/0.4 ML SYRINGE SUBCUT SCH (13:06)
[2019-06-28] MEDS: MENTHOL/ZINC OXIDE OINT 71 GM JAR TOP SCH ×2 (14:39→21:28)
[2019-06-28] MEDS: LEVOFLOXACIN INJ 750 MG in PREMIX 1 EACH IV SCH (14:40)
[2019-06-28] MEDS: PROPOFOL 1,000 MG/100 ML BOTTLE IV SCH (15:15)
[2019-06-28] MEDS: MICAFUNGIN 100 MG in SODIUM CHLORIDE 0.9% 100 ML IV SCH (16:46)
[2019-06-28] MEDS: VANCOMYCIN INJ 1,250 MG in SODIUM CHLORIDE 0.9% 250 ML IV SCH (17:52)
[2019-06-28] MEDS: QUEtiapine 25 MG TABLET PO SCH (21:27)
[2019-06-28] MEDS: SIMVASTATIN 40 MG TABLET PO SCH (21:27)
[2019-06-29] MEDS: hydrALAZINE 20 MG/1 ML VIAL IV PRN (01:35)
[2019-06-29] MEDS: NIFEdipine 10 MG CAPSULE PO PRN ×2 (02:24→09:19)
[2019-06-29] MEDS: ALBUTEROL 2.5 MG/3 ML NEB RESP TX SCH ×6 (03:24→23:25)
[2019-06-29] MEDS: methylPREDNISolone SOD SUC 40 MG/1 ML VIAL IV SCH (04:10)
[2019-06-29] MEDS: INSULIN LISPRO 100 UNIT/ML SUBCUT SCH ×5 (04:10→19:35)
[2019-06-29 04:41] LABS: ABG Base Excess 6.8 MMOL/L (-2.5-2.5); ABG HCO3 30.7 MMOL/L (20-26); ABG Oxygen Saturation 98.7 % (95-100); ABG PCO2 30.9 MM HG (35-48); ABG PH 7.576 (7.35-7.45); ABG TCO2 25.6 MMOL/L (23-27)
[2019-06-29 06:00] LABS: Calcium 11.2 MG/DL (8.5-10.1); Osmolality,Calculated 333.3 MOS/KG (273-304)
[2019-06-29] MEDS: FUROSEMIDE 40 MG/4 ML VIAL IV SCH (08:46)
[2019-06-29] MEDS: MULTIVITAMIN LIQUID (CENTRUM) 60 ML BOTTLE PER TUBE SCH (08:46)
[2019-06-29] MEDS: PROPRANOLOL 40 MG TABLET PO SCH ×4 (08:47→20:39)
[2019-06-29] MEDS: glipiZIDE 5 MG TABLET PO SCH ×2 (08:47→16:22)
[2019-06-29] MEDS: LEVOTHYROXINE 25 MCG TABLET PO SCH (08:48)
[2019-06-29] MEDS: NITROGLYCERIN 2% OINT 1 INCH/GM PACK TOP SCH ×2 (08:49→20:39)
[2019-06-29] MEDS: SPIRONOLACTONE 25 MG TABLET PO SCH (08:49)
[2019-06-29] MEDS: LANSOPRAZOLE ODT 30 MG TABLET PER TUBE SCH (08:49)
[2019-06-29] MEDS: INSULIN GLARGINE 100 UNIT/ML SUBCUT SCH (08:50)
[2019-06-29] MEDS: MENTHOL/ZINC OXIDE OINT 71 GM JAR TOP SCH ×2 (08:51→21:03)
[2019-06-29] MEDS: DEXTROSE 5% KCL 20 MEQ 20 MEQ/1,000 ML BAG IV SCH ×2 (08:58→20:38)
[2019-06-29] MEDS: POTASSIUM CHLORIDE 20 MEQ/15 ML UDCUP PER TUBE PRN ×4 (09:19→18:02)
[2019-06-29] MEDS: MICAFUNGIN 100 MG in SODIUM CHLORIDE 0.9% 100 ML IV SCH (15:00)
[2019-06-29] MEDS: ENOXAPARIN 40 MG/0.4 ML SYRINGE SUBCUT SCH (15:49)
[2019-06-29] MEDS: PROPOFOL 1,000 MG/100 ML BOTTLE IV SCH (16:12)
[2019-06-29] MEDS: VANCOMYCIN INJ 1,250 MG in SODIUM CHLORIDE 0.9% 250 ML IV SCH (16:25)
[2019-06-29 16:41] LABS: Free T4 (Free Thyroxine) 0.97 NG/DL (0.76-1.46); Thyroid Stimulating Hormone 1.73 uIU/ml (0.358-3.74)
[2019-06-29] MEDS: SIMVASTATIN 40 MG TABLET PO SCH (20:39)
[2019-06-29] MEDS: QUEtiapine 25 MG TABLET PO SCH (20:39)
[2019-06-30] MEDS: INSULIN LISPRO 100 UNIT/ML SUBCUT SCH ×6 (00:32→19:48)
[2019-06-30 01:58] LABS: Basophils % 0.2 % (0.0-0.8); Eosinophils # 0.3 10*3/uL (0.0-0.87); Eosinophils % 2.2 % (0.00-10.9); Hematocrit 31.2 VOL% (35.7-47.0); Hemoglobin 9.4 GM/DL (12.0-16.0); Immature Granulocytes % 2.3 %; Immature Granulocytes Absolute 0.31 #; Lymphocytes % 15.2 % (21.3-54.2); Mean Corpuscular HGB Conc 30.1 GM/DL (32-36); Mean Corpuscular Volume 89.9 FL (87-102); Mean Platelet Volume 9.5 FL (9.6-12.0); Monocytes % 7.7 % (1.7-12.7); Neutrophils % 72.4 % (38.7-73.9); Platelet Count 273 T/CUMM (130-400); Red Blood Count 3.47 MC/CUMM (3.8-5.5); Red Cell Distribution Width 18.8 % (9.3-17.3); White Blood Count 13.4 T/CUMM (4-12)
[2019-06-30 02:05] LABS: PT Patient Result 10.7 SECS
[2019-06-30 02:29] LABS: Calcium 9.8 MG/DL (8.5-10.1); Osmolality,Calculated 329.9 MOS/KG (273-304)
[2019-06-30] MEDS: ALBUTEROL 2.5 MG/3 ML NEB RESP TX SCH ×6 (03:30→23:51)
[2019-06-30 04:42] LABS: ABG Base Excess 3.3 MMOL/L (-2.5-2.5); ABG HCO3 25.2 MMOL/L (20-26); ABG Oxygen Saturation 98.2 % (95-100); ABG PCO2 29.5 MM HG (35-48); ABG PO2 127.1 MM HG (80-95); ABG TCO2 26.1 MMOL/L (23-27); Allen Test Positive; Pt O2 Delivery Device Ventilator
[2019-06-30] MEDS: DEXTROSE 5% KCL 20 MEQ 20 MEQ/1,000 ML BAG IV SCH (06:39)
[2019-06-30] MEDS: glipiZIDE 5 MG TABLET PO SCH ×2 (07:30→15:45)
[2019-06-30] MEDS ORDERED: LACTATED RINGERS 1,000 ML IV SCH (08:00)
[2019-06-30] MEDS: PROPRANOLOL 40 MG TABLET PO SCH ×4 (09:00→20:09)
[2019-06-30] MEDS: MENTHOL/ZINC OXIDE OINT 71 GM JAR TOP SCH ×2 (09:30→20:10)
[2019-06-30] MEDS: NITROGLYCERIN 2% OINT 1 INCH/GM PACK TOP SCH ×2 (10:40→20:18)
[2019-06-30] MEDS: INSULIN GLARGINE 100 UNIT/ML SUBCUT SCH (11:15)
[2019-06-30] MEDS: PROPOFOL 1,000 MG/100 ML BOTTLE IV SCH (12:15)
[2019-06-30 13:46] LABS: Allen Test Positive; Pt O2 Delivery Device Ventilator
[2019-06-30] MEDS: LEVOFLOXACIN INJ 750 MG in PREMIX 1 EACH IV SCH (14:00)
[2019-06-30] MEDS: DEXTROSE 5% 1,000 ML IV SCH (14:00)
[2019-06-30 14:51] LABS: ABG Base Excess 0.5 MMOL/L (-2.5-2.5); ABG HCO3 24.9 MMOL/L (20-26); ABG Oxygen Saturation 98.2 % (95-100); ABG PCO2 37.5 MM HG (35-48); ABG PH 7.427 (7.35-7.45); ABG TCO2 22.4 MMOL/L (23-27)
[2019-06-30] MEDS ORDERED: PROPOFOL 200 MG/20 ML VIAL IV ONE (14:57)
[2019-06-30] MEDS: MICAFUNGIN 100 MG in SODIUM CHLORIDE 0.9% 100 ML IV SCH (15:35)
[2019-06-30] MEDS: LANSOPRAZOLE ODT 30 MG TABLET PER TUBE SCH (15:45)
[2019-06-30] MEDS: MULTIVITAMIN LIQUID (CENTRUM) 60 ML BOTTLE PER TUBE SCH (15:45)
[2019-06-30] MEDS: LEVOTHYROXINE 25 MCG TABLET PO SCH (15:45)
[2019-06-30] MEDS: predniSONE 20 MG TABLET PO SCH (15:45)
[2019-06-30] MEDS: VANCOMYCIN INJ 1,250 MG in SODIUM CHLORIDE 0.9% 250 ML IV SCH (16:45)
[2019-06-30] MEDS: SIMVASTATIN 40 MG TABLET PO SCH (20:09)
[2019-06-30] MEDS: QUEtiapine 25 MG TABLET PO SCH (20:09)
[2019-07-01] MEDS: INSULIN LISPRO 100 UNIT/ML SUBCUT SCH ×6 (00:44→20:33)
[2019-07-01] MEDS: ALBUTEROL 2.5 MG/3 ML NEB RESP TX SCH ×6 (02:45→23:49)
[2019-07-01 03:41] LABS: ABG Base Excess -0.2 MMOL/L (-2.5-2.5); ABG HCO3 24.2 MMOL/L (20-26); ABG Oxygen Saturation 98.8 % (95-100); ABG PCO2 36.4 MM HG (35-48); ABG PH 7.424 (7.35-7.45); ABG TCO2 21.7 MMOL/L (23-27); Allen Test Positive; Pt O2 Delivery Device Ventilator
[2019-07-01 05:15] LABS: Basophils % 0.2 % (0.0-0.8); Eosinophils # 0.1 10*3/uL (0.0-0.87); Eosinophils % 0.5 % (0.00-10.9); Hematocrit 30.2 VOL% (35.7-47.0); Hemoglobin 9.4 GM/DL (12.0-16.0); Immature Granulocytes % 1.6 %; Immature Granulocytes Absolute 0.17 #; Lymphocytes # 1.4 10*3/uL (1.4-4.0); Lymphocytes % 13.1 % (21.3-54.2); Mean Corpuscular HGB Conc 31.1 GM/DL (32-36); Mean Corpuscular Volume 87.5 FL (87-102); Mean Platelet Volume 9.5 FL (9.6-12.0); Monocytes % 4.2 % (1.7-12.7); Neutrophils % 80.4 % (38.7-73.9); Platelet Count 235 T/CUMM (130-400); Red Blood Count 3.45 MC/CUMM (3.8-5.5); Red Cell Distribution Width 17.4 % (9.3-17.3); White Blood Count 10.4 T/CUMM (4-12)
[2019-07-01 05:46] LABS: Calcium 9.1 MG/DL (8.5-10.1); Prealbumin 23.3 MG/DL (20-40)
[2019-07-01] MEDS: DEXTROSE 5% 1,000 ML IV SCH (06:22)
[2019-07-01] MEDS: INSULIN GLARGINE 100 UNIT/ML SUBCUT SCH (08:30)
[2019-07-01] MEDS: MULTIVITAMIN LIQUID (CENTRUM) 60 ML BOTTLE PER TUBE SCH (08:30)
[2019-07-01] MEDS: glipiZIDE 5 MG TABLET PO SCH ×2 (08:30→16:30)
[2019-07-01] MEDS: NITROGLYCERIN 2% OINT 1 INCH/GM PACK TOP SCH ×2 (09:30→20:33)
[2019-07-01] MEDS: LEVOTHYROXINE 25 MCG TABLET PO SCH (09:45)
[2019-07-01] MEDS: PROPRANOLOL 40 MG TABLET PO SCH ×4 (09:45→20:33)
[2019-07-01] MEDS: LANSOPRAZOLE ODT 30 MG TABLET PER TUBE SCH (09:45)
[2019-07-01] MEDS: PROPOFOL 1,000 MG/100 ML BOTTLE IV SCH ×2 (10:20→13:30)
[2019-07-01] MEDS: MENTHOL/ZINC OXIDE OINT 71 GM JAR TOP SCH ×2 (11:00→20:34)
[2019-07-01] MEDS: predniSONE 20 MG TABLET PO SCH (13:00)
[2019-07-01] MEDS: MICAFUNGIN 100 MG in SODIUM CHLORIDE 0.9% 100 ML IV SCH (14:45)
[2019-07-01] MEDS: VANCOMYCIN INJ 1,250 MG in SODIUM CHLORIDE 0.9% 250 ML IV SCH (16:30)
[2019-07-01] MEDS: SODIUM CHLORIDE 0.45% 1,000 ML IV SCH (17:30)
[2019-07-01 19:42] VITALS: BP 116/72
[2019-07-01] MEDS: SIMVASTATIN 40 MG TABLET PO SCH (20:33)
[2019-07-01] MEDS: QUEtiapine 25 MG TABLET PO SCH (20:33)
[2019-07-01] MEDS: LORazepam 2 MG/1 ML VIAL IV PRN (20:34)
[2019-07-02] MEDS: INSULIN LISPRO 100 UNIT/ML SUBCUT SCH ×4 (00:29→12:05)
[2019-07-02] MEDS: ALBUTEROL 2.5 MG/3 ML NEB RESP TX SCH ×3 (02:13→11:40)
[2019-07-02] MEDS: PROPOFOL 1,000 MG/100 ML BOTTLE IV SCH ×2 (03:56→11:34)
[2019-07-02] MEDS: LORazepam 2 MG/1 ML VIAL IV PRN (04:30)
[2019-07-02 05:37] LABS: Basophils % 0.3 % (0.0-0.8); Eosinophils # 0.3 10*3/uL (0.0-0.87); Eosinophils % 2.5 % (0.00-10.9); Hematocrit 31.7 VOL% (35.7-47.0); Hemoglobin 9.8 GM/DL (12.0-16.0); Immature Granulocytes % 2.6 %; Immature Granulocytes Absolute 0.31 #; Lymphocytes % 16.6 % (21.3-54.2); Mean Corpuscular HGB Conc 30.9 GM/DL (32-36); Mean Corpuscular Volume 87.8 FL (87-102); Mean Platelet Volume 9.8 FL (9.6-12.0); Monocytes % 6.5 % (1.7-12.7); Neutrophils % 71.5 % (38.7-73.9); Platelet Count 226 T/CUMM (130-400); Red Blood Count 3.61 MC/CUMM (3.8-5.5); Red Cell Distribution Width 17.2 % (9.3-17.3); White Blood Count 12.1 T/CUMM (4-12)
[2019-07-02 06:03] LABS: Calcium 8.9 MG/DL (8.5-10.1); Osmolality,Calculated 297.8 MOS/KG (273-304)
[2019-07-02] MEDS: SODIUM CHLORIDE 0.45% 1,000 ML IV SCH (06:30)
[2019-07-02] MEDS: INSULIN GLARGINE 100 UNIT/ML SUBCUT SCH (08:18)
[2019-07-02] MEDS: glipiZIDE 5 MG TABLET PO SCH (08:18)
[2019-07-02] MEDS: LEVOTHYROXINE 25 MCG TABLET PO SCH (08:18)
[2019-07-02] MEDS: NITROGLYCERIN 2% OINT 1 INCH/GM PACK TOP SCH (08:18)
[2019-07-02] MEDS: predniSONE 20 MG TABLET PO SCH (08:18)
[2019-07-02] MEDS: PROPRANOLOL 40 MG TABLET PO SCH (08:18)
[2019-07-02] MEDS: LANSOPRAZOLE ODT 30 MG TABLET PER TUBE SCH (08:19)
[2019-07-02] MEDS: MENTHOL/ZINC OXIDE OINT 71 GM JAR TOP SCH (08:23)
[2019-07-02] MEDS: MULTIVITAMIN LIQUID (CENTRUM) 60 ML BOTTLE PER TUBE SCH (08:37)
[2019-07-02] MEDS: hydrALAZINE 20 MG/1 ML VIAL IV PRN (09:06)
== END 2019-07-02 12:38 | DRG 4 ==
LOC: N.ED 10:08 → N.EDINP 12:18 → SUATTDRO 12:18 → N.CC 13:15 → N.ICU 06-12 11:00
PROVIDERS: ADMIT Internal Medicine; ATTEND Internal Medicine
PROC: EGDWPEG (ICD-10-PCS; 2019-06-30 12:35)

== ENCOUNTER 2019-10-02 11:00 | Inpatient (IN) ==
[2019-10-02] MEDS ORDERED: SODIUM CHLORIDE 0.9% 1,000 ML IV STA (11:22)
[2019-10-02] MEDS ORDERED: ALBUTEROL/IPRATROPIUM 3 ML NEB RESP TX STA (11:22)
[2019-10-02 12:17] LABS: Apearance,Urine CLOUDY (Clear); Bacteria,Urine Many /HPF (Few); Bilirubin,Urine Negative (Negative); Blood, Urine Small mg/dL (Negative); Glucose,Urine (UA) 50 mg/dL (Negative); Ketones,Urine Negative (Negative); Mucus,Urine Few /LPF (Occasional); Nitrite,Urine Negative (Negative); Protein,Urine 30 MG/DL; RBC,Urine 18 /HPF (0-4); Urine Color Yellow (Yellow); Urine Specific Gravity 1.011 (1.001-1.035); Urine Urobilinogen < 2.0 EU/DL (0.2-1.0); WBC,Urine 559 /HPF (0-6)
[2019-10-02 12:38] LABS: ABG Base Excess 1.7 MMOL/L (-2.5-2.5); ABG HCO3 25.9 MMOL/L (20-26); ABG Oxygen Saturation 97.9 % (95-100); ABG PCO2 38.4 MM HG (35-48); ABG PH 7.436 (7.35-7.45); ABG PO2 93.6 MM HG (80-95); ABG TCO2 23.1 MMOL/L (23-27)
[2019-10-02 12:52] LABS: Basophils % 0.3 % (0.0-0.8); Eosinophils # 0.1 10*3/uL (0.0-0.87); Eosinophils % 0.4 % (0.00-10.9); Hematocrit 33.5 VOL% (35.7-47.0); Hemoglobin 11.1 GM/DL (12.0-16.0); Immature Granulocytes % 0.4 %; Immature Granulocytes Absolute 0.05 #; Lymphocytes # 1.3 10*3/uL (1.4-4.0); Lymphocytes % 10.9 % (21.3-54.2); Mean Corpuscular HGB Conc 33.1 GM/DL (32-36); Mean Corpuscular Volume 94.4 FL (87-102); Mean Platelet Volume 8.9 FL (9.6-12.0); Monocytes % 3.6 % (1.7-12.7); Neutrophils % 84.4 % (38.7-73.9); Platelet Count 222 T/CUMM (130-400); Red Blood Count 3.55 MC/CUMM (3.8-5.5); Red Cell Distribution Width 12.9 % (9.3-17.3); White Blood Count 12.3 T/CUMM (4-12)
[2019-10-02 13:02] LABS: INR 1.2; PT Patient Result 13.3 SECS (9.6-12.2)
[2019-10-02 13:20] LABS: Alanine Aminotransferase 14 U/L (13-56); Albumin 2.7 G/DL (3.4-5.0); Alkaline Phosphatase 81 U/L (45-117); Aspartate Amino Transferase 20 U/L (0-37); Blood Urea Nitrogen 17 MG/DL (7-18); Calcium 9.5 MG/DL (8.5-10.1); Estimated Glom Filtration Rate 41 ML/MIN; Glucose 264 MG/DL (74-106); Osmolality,Calculated 278.2 MOS/KG (273-304); Total Protein 8.2 G/DL (6.4-8.3); Troponin I < 0.015 NG/ML (0.00-0.045)
[2019-10-02] MEDS ORDERED: MEROPENEM 1,000 MG in SODIUM CHLORIDE 0.9% 100 ML IV ONE (13:28)
[2019-10-02] MEDS ORDERED: ONDANSETRON 4 MG/2 ML VIAL IV PRN (13:57)
[2019-10-02] MEDS ORDERED: PROMETHAZINE 25 MG/1 ML VIAL IM PRN (13:57)
[2019-10-02] MEDS ORDERED: ACETAMINOPHEN 325 MG TABLET PO PRN (13:57)
[2019-10-02] MEDS ORDERED: GLUCAGON 1 MG VIAL IM PRN (14:00)
[2019-10-02] MEDS ORDERED: DEXTROSE 50% 25 GM/50 ML VIAL IV PRN (14:00)
[2019-10-02] MEDS ORDERED: HYDROCORTISONE 2.5% CREAM 30 GM TUBE TOP PRN (14:00)
[2019-10-02] MEDS ORDERED: ENOXAPARIN 30 MG/0.3 ML SYRINGE SUBCUT SCH (14:00)
[2019-10-02] MEDS: MEROPENEM 500 MG in SODIUM CHLORIDE 0.9% 100 ML IV SCH ×2 (16:42→21:39)
[2019-10-02] MEDS: glipiZIDE 10 MG TABLET PO SCH (16:51)
[2019-10-02] MEDS: INSULIN REGULAR 100 UNIT/ML SUBCUT SCH ×2 (16:52→21:43)
[2019-10-02] MEDS: PANTOPRAZOLE 40 MG TABLET PO SCH (16:52)
[2019-10-02] MEDS: SODIUM CHLORIDE 0.9% 1,000 ML IV SCH (16:53)
[2019-10-02] MEDS ORDERED: NON-FORMULARY MEDICATION (Cranberry 500 MG) PO SCH (21:00)
[2019-10-02] MEDS: QUEtiapine 25 MG TABLET PO SCH (21:42)
[2019-10-02] MEDS: PROPRANOLOL 20 MG TABLET PO SCH (21:42)
[2019-10-02] MEDS: APIXABAN 2.5 MG TABLET PO SCH (21:42)
[2019-10-02] MEDS: LOSARTAN 50 MG TABLET PO SCH (21:43)
[2019-10-02] MEDS: ATORVASTATIN 20 MG TABLET PO SCH (21:43)
[2019-10-02] MEDS: FAMOTIDINE 20 MG TABLET PO SCH (21:43)
[2019-10-03] MEDS: SODIUM CHLORIDE 0.9% 1,000 ML IV SCH ×3 (03:08→23:26)
[2019-10-03 05:31] LABS: Basophils % 0.4 % (0.0-0.8); Eosinophils # 0.2 10*3/uL (0.0-0.87); Eosinophils % 3.5 % (0.00-10.9); Hematocrit 29.6 VOL% (35.7-47.0); Hemoglobin 9.8 GM/DL (12.0-16.0); Immature Granulocytes % 0.4 %; Immature Granulocytes Absolute 0.03 #; Lymphocytes # 1.9 10*3/uL (1.4-4.0); Lymphocytes % 26.8 % (21.3-54.2); Mean Corpuscular HGB Conc 33.1 GM/DL (32-36); Mean Platelet Volume 8.8 FL (9.6-12.0); Neutrophils % 57.9 % (38.7-73.9); Platelet Count 196 T/CUMM (130-400); Red Blood Count 3.05 MC/CUMM (3.8-5.5); White Blood Count 6.9 T/CUMM (4-12)
[2019-10-03 05:49] LABS: % Iron Saturation 18.5 % (18-50); Ferritin 121.9 ng/ml (8-252)
[2019-10-03 05:51] LABS: Albumin 2.1 G/DL (3.4-5.0); Bilirubin,Total 0.7 MG/DL (0.2-1.0); Calcium 8.8 MG/DL (8.5-10.1); Osmolality,Calculated 287.7 MOS/KG (273-304); Risk Ratio 3.48; Thyroid Stimulating Hormone 2.83 uIU/ml (0.358-3.74); Total Protein 6.9 G/DL (6.4-8.3)
[2019-10-03 05:57] LABS: Folate > 24.0 NG/ML (5.4-24.0); Vitamin B12 434 PG/ML (211-911)
[2019-10-03] MEDS: MEROPENEM 500 MG in SODIUM CHLORIDE 0.9% 100 ML IV SCH ×3 (06:40→23:27)
[2019-10-03] MEDS: LEVOTHYROXINE 25 MCG TABLET PO SCH (06:40)
[2019-10-03 07:07] LABS: Sedimentation Rate-Westergren 120 MM/HR (0-30)
[2019-10-03] MEDS ORDERED: MAGNESIUM SULF RIDER 2 GM in PREMIX 1 EACH IV ONE (07:07)
[2019-10-03] MEDS: INSULIN REGULAR 100 UNIT/ML SUBCUT SCH ×4 (07:33→21:36)
[2019-10-03] MEDS: glipiZIDE 10 MG TABLET PO SCH ×2 (08:58→16:23)
[2019-10-03] MEDS: ASPIRIN EC 81 MG TABLET PO SCH (08:58)
[2019-10-03] MEDS: PROPRANOLOL 20 MG TABLET PO SCH ×2 (08:58→23:22)
[2019-10-03] MEDS: GABAPENTIN 100 MG CAPSULE PO SCH (08:59)
[2019-10-03] MEDS: LOSARTAN 50 MG TABLET PO SCH ×2 (08:59→23:22)
[2019-10-03] MEDS: APIXABAN 2.5 MG TABLET PO SCH ×2 (08:59→23:23)
[2019-10-03] MEDS: TAMSULOSIN 0.4 MG CAPSULE PO SCH (08:59)
[2019-10-03] MEDS: DOCUSATE SODIUM 100 MG CAPSULE PO SCH (08:59)
[2019-10-03] MEDS: PANTOPRAZOLE 40 MG TABLET PO SCH (08:59)
[2019-10-03] MEDS: INSULIN GLARGINE 100 UNIT/ML SUBCUT SCH (11:31)
[2019-10-03] MEDS: CHOLECALCIFEROL 1,000 UNIT TABLET PO SCH (16:23)
[2019-10-03] MEDS: ATORVASTATIN 20 MG TABLET PO SCH (23:22)
[2019-10-03] MEDS: FAMOTIDINE 20 MG TABLET PO SCH (23:22)
[2019-10-03] MEDS: QUEtiapine 25 MG TABLET PO SCH (23:22)
[2019-10-04 05:01] LABS: Basophils % 0.5 % (0.0-0.8); Eosinophils # 0.3 10*3/uL (0.0-0.87); Eosinophils % 4.3 % (0.00-10.9); Hematocrit 29.4 VOL% (35.7-47.0); Hemoglobin 9.8 GM/DL (12.0-16.0); Immature Granulocytes % 0.4 %; Immature Granulocytes Absolute 0.03 #; Lymphocytes # 2.2 10*3/uL (1.4-4.0); Lymphocytes % 30.2 % (21.3-54.2); Mean Corpuscular HGB Conc 33.3 GM/DL (32-36); Mean Corpuscular Volume 94.8 FL (87-102); Mean Platelet Volume 8.9 FL (9.6-12.0); Monocytes % 8.3 % (1.7-12.7); Neutrophils % 56.3 % (38.7-73.9); Platelet Count 206 T/CUMM (130-400); Red Cell Distribution Width 12.9 % (9.3-17.3); White Blood Count 7.4 T/CUMM (4-12)
[2019-10-04 05:16] LABS: Calcium 8.6 MG/DL (8.5-10.1); Osmolality,Calculated 284.5 MOS/KG (273-304)
[2019-10-04] MEDS: LEVOTHYROXINE 25 MCG TABLET PO SCH (06:02)
[2019-10-04] MEDS: MEROPENEM 500 MG in SODIUM CHLORIDE 0.9% 100 ML IV SCH ×3 (06:02→21:42)
[2019-10-04] MEDS ORDERED: MAGNESIUM SULF RIDER 4 GM in PREMIX 1 EACH IV PRN (07:46)
[2019-10-04] MEDS ORDERED: MAGNESIUM SULF RIDER 2 GM in PREMIX 1 EACH IV PRN (07:46)
[2019-10-04] MEDS: INSULIN GLARGINE 100 UNIT/ML SUBCUT SCH (09:02)
[2019-10-04] MEDS: INSULIN REGULAR 100 UNIT/ML SUBCUT SCH ×4 (09:02→21:32)
[2019-10-04] MEDS: glipiZIDE 10 MG TABLET PO SCH ×2 (09:03→15:50)
[2019-10-04] MEDS: CHOLECALCIFEROL 1,000 UNIT TABLET PO SCH (09:03)
[2019-10-04] MEDS: PANTOPRAZOLE 40 MG TABLET PO SCH (09:03)
[2019-10-04] MEDS: ASPIRIN EC 81 MG TABLET PO SCH (09:03)
[2019-10-04] MEDS: GABAPENTIN 100 MG CAPSULE PO SCH (09:03)
[2019-10-04] MEDS: PROPRANOLOL 20 MG TABLET PO SCH ×2 (09:03→21:38)
[2019-10-04] MEDS: APIXABAN 2.5 MG TABLET PO SCH ×2 (09:03→21:38)
[2019-10-04] MEDS: DOCUSATE SODIUM 100 MG CAPSULE PO SCH (09:03)
[2019-10-04] MEDS: TAMSULOSIN 0.4 MG CAPSULE PO SCH (09:03)
[2019-10-04] MEDS: LOSARTAN 50 MG TABLET PO SCH ×2 (09:03→21:38)
[2019-10-04] MEDS: POLYETHYLENE GLYCOL POWDER 17 GM PACK PO SCH (10:10)
[2019-10-04] MEDS: MAGNESIUM CHLORIDE 64 MG TABLET PO SCH (10:10)
[2019-10-04] MEDS: QUEtiapine 25 MG TABLET PO SCH (21:37)
[2019-10-04] MEDS: ATORVASTATIN 20 MG TABLET PO SCH (21:38)
[2019-10-04] MEDS: FAMOTIDINE 20 MG TABLET PO SCH (21:38)
[2019-10-04] MEDS: SODIUM CHLORIDE 0.9% 1,000 ML IV SCH (21:42)
[2019-10-05] MEDS: MEROPENEM 500 MG in SODIUM CHLORIDE 0.9% 100 ML IV SCH ×3 (05:56→21:30)
[2019-10-05] MEDS: LEVOTHYROXINE 25 MCG TABLET PO SCH (05:57)
[2019-10-05 06:13] LABS: Basophils % 0.5 % (0.0-0.8); Eosinophils # 0.3 10*3/uL (0.0-0.87); Eosinophils % 4.3 % (0.00-10.9); Hematocrit 31.9 VOL% (35.7-47.0); Hemoglobin 10.7 GM/DL (12.0-16.0); Immature Granulocytes % 0.4 %; Immature Granulocytes Absolute 0.03 #; Lymphocytes % 26.5 % (21.3-54.2); Mean Corpuscular HGB Conc 33.5 GM/DL (32-36); Mean Corpuscular Volume 92.5 FL (87-102); Mean Platelet Volume 8.7 FL (9.6-12.0); Monocytes % 9.4 % (1.7-12.7); Neutrophils % 58.9 % (38.7-73.9); Platelet Count 212 T/CUMM (130-400); Red Blood Count 3.45 MC/CUMM (3.8-5.5); Red Cell Distribution Width 12.8 % (9.3-17.3); White Blood Count 7.5 T/CUMM (4-12)
[2019-10-05 06:28] LABS: Calcium 8.8 MG/DL (8.5-10.1); Osmolality,Calculated 287.1 MOS/KG (273-304)
[2019-10-05] MEDS: SODIUM CHLORIDE 0.9% 1,000 ML IV SCH ×2 (06:39→21:31)
[2019-10-05] MEDS: FERROUS SULFATE 325 MG TABLET PO SCH ×2 (09:22→16:36)
[2019-10-05] MEDS: LOSARTAN 50 MG TABLET PO SCH ×2 (09:22→21:34)
[2019-10-05] MEDS: PROPRANOLOL 20 MG TABLET PO SCH ×2 (09:22→21:33)
[2019-10-05] MEDS: POLYETHYLENE GLYCOL POWDER 17 GM PACK PO SCH ×2 (09:22→21:38)
[2019-10-05] MEDS: MAGNESIUM CHLORIDE 64 MG TABLET PO SCH (09:23)
[2019-10-05] MEDS: DOCUSATE SODIUM 100 MG CAPSULE PO SCH (09:23)
[2019-10-05] MEDS: CHOLECALCIFEROL 1,000 UNIT TABLET PO SCH (09:23)
[2019-10-05] MEDS: glipiZIDE 10 MG TABLET PO SCH ×2 (09:24→16:36)
[2019-10-05] MEDS: TAMSULOSIN 0.4 MG CAPSULE PO SCH (09:24)
[2019-10-05] MEDS: INSULIN REGULAR 100 UNIT/ML SUBCUT SCH ×4 (09:24→21:32)
[2019-10-05] MEDS: PANTOPRAZOLE 40 MG TABLET PO SCH (09:24)
[2019-10-05] MEDS: ASPIRIN EC 81 MG TABLET PO SCH (09:24)
[2019-10-05] MEDS: INSULIN GLARGINE 100 UNIT/ML SUBCUT SCH (09:24)
[2019-10-05] MEDS: APIXABAN 2.5 MG TABLET PO SCH ×2 (09:24→21:59)
[2019-10-05] MEDS ORDERED: TUBERCULIN SKIN TEST 0.1 ML SYRINGE INTRADERM ONE (11:14)
[2019-10-05] MEDS: METHENAMINE HIPPURATE 1 GM TABLET PO SCH ×2 (13:41→21:33)
[2019-10-05] MEDS: hydrALAZINE 25 MG TABLET PO SCH ×2 (13:41→21:33)
[2019-10-05] MEDS: GABAPENTIN 100 MG CAPSULE PO SCH (13:41)
[2019-10-05] MEDS: ASCORBIC ACID 500 MG TABLET PO SCH ×2 (13:43→21:31)
[2019-10-05] MEDS: FAMOTIDINE 20 MG TABLET PO SCH (21:32)
[2019-10-05] MEDS: QUEtiapine 25 MG TABLET PO SCH (21:33)
[2019-10-05] MEDS: ATORVASTATIN 20 MG TABLET PO SCH (21:34)
[2019-10-05] MEDS: SENNA 8.6 MG TABLET PO SCH (21:34)
[2019-10-06 04:54] LABS: Calcium 8.2 MG/DL (8.5-10.1); Osmolality,Calculated 283.3 MOS/KG (273-304)
[2019-10-06] MEDS: MEROPENEM 500 MG in SODIUM CHLORIDE 0.9% 100 ML IV SCH ×3 (05:39→21:00)
[2019-10-06] MEDS: LEVOTHYROXINE 25 MCG TABLET PO SCH (05:41)
[2019-10-06] MEDS: SODIUM CHLORIDE 0.9% 1,000 ML IV SCH (05:45)
[2019-10-06] MEDS: ASPIRIN EC 81 MG TABLET PO SCH (09:29)
[2019-10-06] MEDS: hydrALAZINE 25 MG TABLET PO SCH ×2 (09:29→20:45)
[2019-10-06] MEDS: CHOLECALCIFEROL 1,000 UNIT TABLET PO SCH (09:29)
[2019-10-06] MEDS: METHENAMINE HIPPURATE 1 GM TABLET PO SCH ×2 (09:30→20:43)
[2019-10-06] MEDS: APIXABAN 2.5 MG TABLET PO SCH ×2 (09:30→20:46)
[2019-10-06] MEDS: LOSARTAN 50 MG TABLET PO SCH ×2 (09:30→20:46)
[2019-10-06] MEDS: DOCUSATE SODIUM 100 MG CAPSULE PO SCH (09:30)
[2019-10-06] MEDS: PROPRANOLOL 20 MG TABLET PO SCH ×2 (09:31→20:43)
[2019-10-06] MEDS: MAGNESIUM CHLORIDE 64 MG TABLET PO SCH (09:31)
[2019-10-06] MEDS: PANTOPRAZOLE 40 MG TABLET PO SCH (09:31)
[2019-10-06] MEDS: FERROUS SULFATE 325 MG TABLET PO SCH ×2 (09:31→17:58)
[2019-10-06] MEDS: GABAPENTIN 100 MG CAPSULE PO SCH (09:31)
[2019-10-06] MEDS: LINACLOTIDE 145 MCG CAPSULE PO SCH (09:32)
[2019-10-06] MEDS: INSULIN GLARGINE 100 UNIT/ML SUBCUT SCH (09:32)
[2019-10-06] MEDS: glipiZIDE 10 MG TABLET PO SCH ×2 (09:33→17:58)
[2019-10-06] MEDS: INSULIN REGULAR 100 UNIT/ML SUBCUT SCH ×4 (09:33→21:25)
[2019-10-06] MEDS: ASCORBIC ACID 500 MG TABLET PO SCH ×2 (09:33→20:46)
[2019-10-06] MEDS: POLYETHYLENE GLYCOL POWDER 17 GM PACK PO SCH ×2 (09:33→21:00)
[2019-10-06] MEDS: TAMSULOSIN 0.4 MG CAPSULE PO SCH (09:34)
[2019-10-06] MEDS: FAMOTIDINE 20 MG TABLET PO SCH (20:43)
[2019-10-06] MEDS: ATORVASTATIN 20 MG TABLET PO SCH (20:43)
[2019-10-06] MEDS: SENNA 8.6 MG TABLET PO SCH (20:44)
[2019-10-06] MEDS: QUEtiapine 25 MG TABLET PO SCH (20:46)
[2019-10-07] MEDS: MEROPENEM 500 MG in SODIUM CHLORIDE 0.9% 100 ML IV SCH (05:51)
[2019-10-07] MEDS: LEVOTHYROXINE 25 MCG TABLET PO SCH (05:51)
[2019-10-07] MEDS ORDERED: MAGNESIUM CHLORIDE 64 MG TABLET PO SCH (09:00)
[2019-10-07] MEDS: DOCUSATE SODIUM 100 MG CAPSULE PO SCH (09:54)
[2019-10-07] MEDS: PROPRANOLOL 20 MG TABLET PO SCH (09:54)
[2019-10-07] MEDS: MAGNESIUM CHLORIDE 64 MG TABLET PO SCH (09:54)
[2019-10-07] MEDS: hydrALAZINE 25 MG TABLET PO SCH (09:54)
[2019-10-07] MEDS: PANTOPRAZOLE 40 MG TABLET PO SCH (09:54)
[2019-10-07] MEDS: GABAPENTIN 100 MG CAPSULE PO SCH (09:55)
[2019-10-07] MEDS: glipiZIDE 10 MG TABLET PO SCH (09:55)
[2019-10-07] MEDS: LOSARTAN 50 MG TABLET PO SCH (09:55)
[2019-10-07] MEDS: ASCORBIC ACID 500 MG TABLET PO SCH (09:55)
[2019-10-07] MEDS: CHOLECALCIFEROL 1,000 UNIT TABLET PO SCH (09:55)
[2019-10-07] MEDS: ASPIRIN EC 81 MG TABLET PO SCH (09:55)
[2019-10-07] MEDS: TAMSULOSIN 0.4 MG CAPSULE PO SCH (09:55)
[2019-10-07] MEDS: FERROUS SULFATE 325 MG TABLET PO SCH (10:01)
[2019-10-07] MEDS: SODIUM CHLORIDE 0.9% 1,000 ML IV SCH (10:01)
[2019-10-07] MEDS: INSULIN REGULAR 100 UNIT/ML SUBCUT SCH (10:01)
[2019-10-07] MEDS: LINACLOTIDE 145 MCG CAPSULE PO SCH (10:01)
[2019-10-07] MEDS: INSULIN GLARGINE 100 UNIT/ML SUBCUT SCH (10:03)
[2019-10-07] MEDS: METHENAMINE HIPPURATE 1 GM TABLET PO SCH (10:03)
[2019-10-07] MEDS: APIXABAN 2.5 MG TABLET PO SCH (10:03)
[2019-10-07] MEDS: POLYETHYLENE GLYCOL POWDER 17 GM PACK PO SCH (10:04)
[2019-10-07 11:54] VITALS: BP 160/90
[2019-10-22] MEDS ORDERED: HALOPERIDOL DECANOATE 50 MG/1 ML VIAL IM SCH (09:00)
== END 2019-10-07 13:50 | DRG 698 ==
LOC: EDUNIT# → N.ED 11:00 → N.EDINP 13:57 → N.5E 14:47
PROVIDERS: ADMIT Hospitalist; ATTEND Hospitalist

== ENCOUNTER 2020-02-05 16:07 | Inpatient (IN) ==
[2020-02-05] MEDS ORDERED: MEROPENEM 500 MG in SODIUM CHLORIDE 0.9% 100 ML IV ONE (16:39)
[2020-02-05] MEDS ORDERED: SODIUM CHLORIDE 0.9% 500 ML IV STA (16:41)
[2020-02-05 17:15] LABS: Basophils % 0.2 % (0.0-0.8); Eosinophils % 0.1 % (0.00-10.9); Hematocrit 31.1 VOL% (35.7-47.0); Immature Granulocytes % 0.6 %; Lymphocytes # 1.6 10*3/uL (1.4-4.0); Lymphocytes % 9.3 % (21.3-54.2); Mean Corpuscular HGB Conc 32.2 GM/DL (32-36); Mean Corpuscular Volume 93.7 FL (87-102); Mean Platelet Volume 9.2 FL (9.6-12.0); Monocytes % 6.3 % (1.7-12.7); Neutrophils % 83.5 % (38.7-73.9); Platelet Count 161 T/CUMM (130-400); Red Blood Count 3.32 MC/CUMM (3.8-5.5); White Blood Count 16.7 T/CUMM (4-12)
[2020-02-05 17:31] LABS: Calcium 9.1 MG/DL (8.5-10.1); Osmolality,Calculated 276.1 MOS/KG (273-304)
[2020-02-05] MEDS ORDERED: DOCUSATE SODIUM 100 MG CAPSULE PO PRN (17:54)
[2020-02-05] MEDS ORDERED: diphenhydrAMINE CAP 25 MG CAPSULE PO PRN (17:54)
[2020-02-05] MEDS ORDERED: ACETAMINOPHEN 325 MG TABLET PO PRN (17:54)
[2020-02-05] MEDS ORDERED: ALUMINUM/MAGNES/SIMETH MAX STR 30 ML UDCUP PO PRN (17:54)
[2020-02-05] MEDS ORDERED: LACTULOSE 20 GM/30 ML UDCUP PO PRN (17:54)
[2020-02-05] MEDS ORDERED: ONDANSETRON 4 MG/2 ML VIAL IV PRN (17:54)
[2020-02-05] MEDS ORDERED: BISACODYL 5 MG TABLET PO PRN (17:54)
[2020-02-05] MEDS ORDERED: GLUCAGON 1 MG VIAL IM PRN ×2 (17:54)
[2020-02-05] MEDS ORDERED: ALBUTEROL 2.5 MG/3 ML NEB RESP TX PRN (17:54)
[2020-02-05] MEDS ORDERED: guaiFENesin/DM ER 600-30 MG TABLET PO PRN (17:54)
[2020-02-05] MEDS ORDERED: hydrALAZINE 20 MG/1 ML VIAL IV PRN (17:54)
[2020-02-05] MEDS ORDERED: ZALEPLON 5 MG CAPSULE PO PRN (17:54)
[2020-02-05] MEDS ORDERED: DEXTROSE 50% 25 GM/50 ML VIAL IV PRN (17:54)
[2020-02-05] MEDS ORDERED: HYDROCORTISONE 1% CREAM 28 GM TUBE TOP PRN (17:58)
[2020-02-05] MEDS ORDERED: ONDANSETRON 4 MG TABLET PO PRN (17:58)
[2020-02-05 18:36] LABS: ABG Base Excess -2.5 MMOL/L (-2.5-2.5); ABG HCO3 22.3 MMOL/L (20-26); ABG Oxygen Saturation 97.6 % (95-100); ABG PCO2 37.3 MM HG (35-48); ABG PH 7.383 (7.35-7.45); ABG PO2 94.9 MM HG (80-95); ABG TCO2 20.2 MMOL/L (23-27); Allen Test Positive
[2020-02-05] MEDS ORDERED: DEXTROSE 10% 250 ML BAG IV PRN (18:56)
[2020-02-05 19:07] LABS: Apearance,Urine CLOUDY (Clear); Bacteria,Urine Moderate /HPF (Few); Bilirubin,Urine Negative (Negative); Blood, Urine Small mg/dL (Negative); Glucose,Urine (UA) 150 mg/dL (Negative); Ketones,Urine Negative (Negative); Nitrite,Urine Positive (Negative); Protein,Urine 30 MG/DL; RBC,Urine 37 /HPF (0-4); Urine Color Amber (Yellow); Urine Specific Gravity 1.013 (1.001-1.035); Urine Urobilinogen < 2.0 EU/DL (0.2-1.0); WBC,Urine 577 /HPF (0-6)
[2020-02-05] MEDS ORDERED: AZITHROMYCIN INJ 500 MG in SODIUM CHLORIDE 0.9% 250 ML IV SCH (19:30)
[2020-02-05] MEDS ORDERED: cefTRIAXone 1,000 MG in SYRINGE 1 EACH IV SCH (19:30)
[2020-02-05] MEDS: ALBUTEROL/IPRATROPIUM 3 ML NEB RESP TX SCH (20:55)
[2020-02-05] MEDS: PROPRANOLOL 20 MG TABLET PO SCH (22:54)
[2020-02-05] MEDS: FAMOTIDINE 20 MG TABLET PO SCH (22:54)
[2020-02-05] MEDS: LOSARTAN 50 MG TABLET PO SCH (22:55)
[2020-02-05] MEDS: QUEtiapine 25 MG TABLET PO SCH (22:55)
[2020-02-05] MEDS: ATORVASTATIN 20 MG TABLET PO SCH (22:55)
[2020-02-05] MEDS: hydrALAZINE 25 MG TABLET PO SCH (22:55)
[2020-02-05] MEDS: APIXABAN 2.5 MG TABLET PO SCH (22:56)
[2020-02-05] MEDS: INSULIN REGULAR 100 UNIT/ML SUBCUT SCH (22:56)
[2020-02-05] MEDS: ASCORBIC ACID 500 MG TABLET PO SCH (22:56)
[2020-02-05] MEDS: PIPERACILLIN/TAZOBACTAM 3,375 MG in SODIUM CHLORIDE 0.9% 100 ML IV SCH (23:05)
[2020-02-05] MEDS: SODIUM CHLORIDE 0.9% 1,000 ML IV SCH (23:15)
[2020-02-06] MEDS: ALBUTEROL/IPRATROPIUM 3 ML NEB RESP TX SCH ×4 (00:24→19:53)
[2020-02-06] MEDS: LEVOTHYROXINE 25 MCG TABLET PO SCH (05:57)
[2020-02-06] MEDS: PIPERACILLIN/TAZOBACTAM 3,375 MG in SODIUM CHLORIDE 0.9% 100 ML IV SCH ×3 (06:02→22:00)
[2020-02-06 07:49] LABS: Basophils % 0.1 % (0.0-0.8); Eosinophils # 0.1 10*3/uL (0.0-0.87); Eosinophils % 0.4 % (0.00-10.9); Hemoglobin 9.1 GM/DL (12.0-16.0); Immature Granulocytes % 0.6 %; Immature Granulocytes Absolute 0.08 #; Lymphocytes # 1.5 10*3/uL (1.4-4.0); Lymphocytes % 11.1 % (21.3-54.2); Mean Corpuscular HGB Conc 32.5 GM/DL (32-36); Mean Platelet Volume 9.5 FL (9.6-12.0); Monocytes % 9.4 % (1.7-12.7); Neutrophils % 78.4 % (38.7-73.9); Platelet Count 142 T/CUMM (130-400); Red Blood Count 2.98 MC/CUMM (3.8-5.5); Red Cell Distribution Width 14.8 % (9.3-17.3); White Blood Count 13.5 T/CUMM (4-12)
[2020-02-06] MEDS: INSULIN REGULAR 100 UNIT/ML SUBCUT SCH ×4 (08:02→21:55)
[2020-02-06 08:26] LABS: Bilirubin,Total 0.8 MG/DL (0.2-1.0); Calcium 8.5 MG/DL (8.5-10.1); Osmolality,Calculated 274.4 MOS/KG (273-304); Thyroid Stimulating Hormone 2.02 uIU/ml (0.358-3.74); Total Protein 7.1 G/DL (6.4-8.3)
[2020-02-06] MEDS: DOCUSATE SODIUM 100 MG CAPSULE PO SCH (09:25)
[2020-02-06] MEDS: GABAPENTIN 100 MG CAPSULE PO SCH (09:25)
[2020-02-06] MEDS: PROPRANOLOL 20 MG TABLET PO SCH ×2 (09:25→21:16)
[2020-02-06] MEDS: LOSARTAN 50 MG TABLET PO SCH ×2 (09:25→21:16)
[2020-02-06] MEDS: FERROUS SULFATE 325 MG TABLET PO SCH (09:25)
[2020-02-06] MEDS: MAGNESIUM CHLORIDE 64 MG TABLET PO SCH (09:25)
[2020-02-06] MEDS: CHOLECALCIFEROL 1,000 UNIT TABLET PO SCH (09:26)
[2020-02-06] MEDS: PANTOPRAZOLE 40 MG TABLET PO SCH (09:26)
[2020-02-06] MEDS: SODIUM CHLORIDE 0.9% 1,000 ML IV SCH ×3 (09:26→23:12)
[2020-02-06] MEDS: ASCORBIC ACID 500 MG TABLET PO SCH ×2 (09:26→21:16)
[2020-02-06] MEDS: TAMSULOSIN 0.4 MG CAPSULE PO SCH (09:26)
[2020-02-06] MEDS: hydrALAZINE 25 MG TABLET PO SCH ×2 (09:26→21:16)
[2020-02-06] MEDS: APIXABAN 2.5 MG TABLET PO SCH ×2 (09:26→21:16)
[2020-02-06] MEDS: LINACLOTIDE 145 MCG CAPSULE PO SCH (12:05)
[2020-02-06] MEDS: QUEtiapine 25 MG TABLET PO SCH (21:15)
[2020-02-06] MEDS: FAMOTIDINE 20 MG TABLET PO SCH (21:16)
[2020-02-06] MEDS: ATORVASTATIN 20 MG TABLET PO SCH (21:16)
[2020-02-07] MEDS: ALBUTEROL/IPRATROPIUM 3 ML NEB RESP TX SCH ×4 (01:02→19:27)
[2020-02-07 05:31] LABS: Basophils % 0.3 % (0.0-0.8); Eosinophils # 0.2 10*3/uL (0.0-0.87); Eosinophils % 1.7 % (0.00-10.9); Hematocrit 29.7 VOL% (35.7-47.0); Hemoglobin 9.5 GM/DL (12.0-16.0); Immature Granulocytes % 0.4 %; Immature Granulocytes Absolute 0.04 #; Lymphocytes # 1.7 10*3/uL (1.4-4.0); Lymphocytes % 16.3 % (21.3-54.2); Mean Corpuscular Volume 95.2 FL (87-102); Mean Platelet Volume 9.4 FL (9.6-12.0); Neutrophils % 71.3 % (38.7-73.9); Platelet Count 141 T/CUMM (130-400); Red Blood Count 3.12 MC/CUMM (3.8-5.5); Red Cell Distribution Width 14.6 % (9.3-17.3); White Blood Count 10.6 T/CUMM (4-12)
[2020-02-07 05:54] LABS: Bilirubin,Total 1.7 MG/DL (0.2-1.0); Calcium 8.6 MG/DL (8.5-10.1); Osmolality,Calculated 278.1 MOS/KG (273-304)
[2020-02-07] MEDS: LEVOTHYROXINE 25 MCG TABLET PO SCH (06:09)
[2020-02-07] MEDS: PIPERACILLIN/TAZOBACTAM 3,375 MG in SODIUM CHLORIDE 0.9% 100 ML IV SCH (06:09)
[2020-02-07] MEDS: FERROUS SULFATE 325 MG TABLET PO SCH (09:35)
[2020-02-07] MEDS: PROPRANOLOL 20 MG TABLET PO SCH ×2 (09:35→21:10)
[2020-02-07] MEDS: MAGNESIUM CHLORIDE 64 MG TABLET PO SCH (09:36)
[2020-02-07] MEDS: DOCUSATE SODIUM 100 MG CAPSULE PO SCH (09:36)
[2020-02-07] MEDS: TAMSULOSIN 0.4 MG CAPSULE PO SCH (09:36)
[2020-02-07] MEDS: CHOLECALCIFEROL 1,000 UNIT TABLET PO SCH (09:36)
[2020-02-07] MEDS: PANTOPRAZOLE 40 MG TABLET PO SCH (09:36)
[2020-02-07] MEDS: GABAPENTIN 100 MG CAPSULE PO SCH (09:36)
[2020-02-07] MEDS: ASCORBIC ACID 500 MG TABLET PO SCH ×2 (09:36→21:10)
[2020-02-07] MEDS: APIXABAN 2.5 MG TABLET PO SCH ×2 (09:36→21:11)
[2020-02-07] MEDS: hydrALAZINE 25 MG TABLET PO SCH (09:37)
[2020-02-07] MEDS: INSULIN REGULAR 100 UNIT/ML SUBCUT SCH ×4 (09:37→21:10)
[2020-02-07] MEDS: LOSARTAN 50 MG TABLET PO SCH (09:37)
[2020-02-07] MEDS: LINACLOTIDE 145 MCG CAPSULE PO SCH (11:56)
[2020-02-07] MEDS: MEROPENEM 500 MG in SODIUM CHLORIDE 0.9% 100 ML IV SCH (14:11)
[2020-02-07] MEDS: MENTHOL/ZINC OXIDE OINT 71 GM JAR TOP SCH ×2 (15:45→21:11)
[2020-02-07] MEDS: SODIUM CHLORIDE 0.9% 1,000 ML IV SCH ×2 (16:40→22:28)
[2020-02-07] MEDS: INSULIN GLARGINE 100 UNIT/ML SUBCUT SCH (21:10)
[2020-02-07] MEDS: FAMOTIDINE 20 MG TABLET PO SCH (21:11)
[2020-02-07] MEDS: QUEtiapine 25 MG TABLET PO SCH (21:11)
[2020-02-07] MEDS: ATORVASTATIN 20 MG TABLET PO SCH (21:11)
[2020-02-08] MEDS: ALBUTEROL/IPRATROPIUM 3 ML NEB RESP TX SCH ×4 (00:09→19:14)
[2020-02-08] MEDS: MEROPENEM 500 MG in SODIUM CHLORIDE 0.9% 100 ML IV SCH ×2 (00:53→14:16)
[2020-02-08] MEDS: LEVOTHYROXINE 25 MCG TABLET PO SCH ×2 (05:11→07:11)
[2020-02-08 06:51] LABS: Basophils % 0.4 % (0.0-0.8); Eosinophils # 0.3 10*3/uL (0.0-0.87); Eosinophils % 3.8 % (0.00-10.9); Hemoglobin 8.8 GM/DL (12.0-16.0); Immature Granulocytes % 0.4 %; Immature Granulocytes Absolute 0.03 #; Lymphocytes # 1.8 10*3/uL (1.4-4.0); Lymphocytes % 21.7 % (21.3-54.2); Mean Corpuscular HGB Conc 32.6 GM/DL (32-36); Mean Corpuscular Volume 93.8 FL (87-102); Mean Platelet Volume 9.3 FL (9.6-12.0); Monocytes % 8.9 % (1.7-12.7); Neutrophils % 64.8 % (38.7-73.9); Platelet Count 137 T/CUMM (130-400); Red Blood Count 2.88 MC/CUMM (3.8-5.5); Red Cell Distribution Width 14.5 % (9.3-17.3); White Blood Count 8.2 T/CUMM (4-12)
[2020-02-08 07:13] LABS: Albumin 1.8 G/DL (3.4-5.0); Bilirubin,Total 1.7 MG/DL (0.2-1.0); Calcium 8.6 MG/DL (8.5-10.1); Osmolality,Calculated 284.7 MOS/KG (273-304); Total Protein 6.6 G/DL (6.4-8.3)
[2020-02-08] MEDS: CHOLECALCIFEROL 1,000 UNIT TABLET PO SCH (09:59)
[2020-02-08] MEDS: INSULIN REGULAR 100 UNIT/ML SUBCUT SCH ×4 (09:59→20:55)
[2020-02-08] MEDS: MENTHOL/ZINC OXIDE OINT 71 GM JAR TOP SCH ×2 (09:59→20:09)
[2020-02-08] MEDS: LINACLOTIDE 145 MCG CAPSULE PO SCH (09:59)
[2020-02-08] MEDS: PANTOPRAZOLE 40 MG TABLET PO SCH (10:00)
[2020-02-08] MEDS: APIXABAN 2.5 MG TABLET PO SCH ×2 (10:00→20:08)
[2020-02-08] MEDS: FERROUS SULFATE 325 MG TABLET PO SCH (10:00)
[2020-02-08] MEDS: GABAPENTIN 100 MG CAPSULE PO SCH (10:00)
[2020-02-08] MEDS: PROPRANOLOL 20 MG TABLET PO SCH ×2 (10:00→20:08)
[2020-02-08] MEDS: TAMSULOSIN 0.4 MG CAPSULE PO SCH (10:00)
[2020-02-08] MEDS: MAGNESIUM CHLORIDE 64 MG TABLET PO SCH (10:00)
[2020-02-08] MEDS: DOCUSATE SODIUM 100 MG CAPSULE PO SCH (10:00)
[2020-02-08] MEDS: ASCORBIC ACID 500 MG TABLET PO SCH ×2 (10:01→20:08)
[2020-02-08] MEDS: SODIUM CHLORIDE 0.9% 1,000 ML IV SCH ×2 (14:16→20:09)
[2020-02-08] MEDS: FAMOTIDINE 20 MG TABLET PO SCH (20:08)
[2020-02-08] MEDS: ATORVASTATIN 20 MG TABLET PO SCH (20:09)
[2020-02-08] MEDS: INSULIN GLARGINE 100 UNIT/ML SUBCUT SCH (20:55)
[2020-02-09] MEDS: ALBUTEROL/IPRATROPIUM 3 ML NEB RESP TX SCH ×4 (00:24→19:46)
[2020-02-09] MEDS: MEROPENEM 500 MG in SODIUM CHLORIDE 0.9% 100 ML IV SCH ×2 (01:04→13:51)
[2020-02-09] MEDS: SODIUM CHLORIDE 0.9% 1,000 ML IV SCH (05:29)
[2020-02-09] MEDS: LEVOTHYROXINE 25 MCG TABLET PO SCH (05:30)
[2020-02-09 07:26] LABS: Basophils % 0.3 % (0.0-0.8); Eosinophils # 0.5 10*3/uL (0.0-0.87); Eosinophils % 6.6 % (0.00-10.9); Hemoglobin 9.3 GM/DL (12.0-16.0); Immature Granulocytes % 0.5 %; Immature Granulocytes Absolute 0.04 #; Lymphocytes # 1.6 10*3/uL (1.4-4.0); Lymphocytes % 19.6 % (21.3-54.2); Mean Corpuscular Volume 96.8 FL (87-102); Mean Platelet Volume 9.4 FL (9.6-12.0); Monocytes % 8.5 % (1.7-12.7); Neutrophils % 64.5 % (38.7-73.9); Platelet Count 174 T/CUMM (130-400); Red Cell Distribution Width 14.3 % (9.3-17.3); White Blood Count 7.9 T/CUMM (4-12)
[2020-02-09 07:45] LABS: Albumin 1.8 G/DL (3.4-5.0); Bilirubin,Total 0.7 MG/DL (0.2-1.0); Calcium 8.7 MG/DL (8.5-10.1); Osmolality,Calculated 284.5 MOS/KG (273-304); Total Protein 6.8 G/DL (6.4-8.3)
[2020-02-09] MEDS: INSULIN REGULAR 100 UNIT/ML SUBCUT SCH ×4 (09:17→22:08)
[2020-02-09] MEDS: SIMETHICONE CHEW 125 MG TABLET PO PRN (09:18)
[2020-02-09] MEDS: DOCUSATE SODIUM 100 MG CAPSULE PO SCH (09:18)
[2020-02-09] MEDS: APIXABAN 2.5 MG TABLET PO SCH ×2 (09:18→22:09)
[2020-02-09] MEDS: CALCIUM CARBONATE CHEW 500 MG TABLET PO PRN (09:18)
[2020-02-09] MEDS: ASCORBIC ACID 500 MG TABLET PO SCH ×2 (09:18→22:09)
[2020-02-09] MEDS: FERROUS SULFATE 325 MG TABLET PO SCH (09:19)
[2020-02-09] MEDS: TAMSULOSIN 0.4 MG CAPSULE PO SCH (09:19)
[2020-02-09] MEDS: PROPRANOLOL 20 MG TABLET PO SCH ×2 (09:19→22:09)
[2020-02-09] MEDS: CHOLECALCIFEROL 1,000 UNIT TABLET PO SCH (09:19)
[2020-02-09] MEDS: MENTHOL/ZINC OXIDE OINT 71 GM JAR TOP SCH ×2 (09:19→22:10)
[2020-02-09] MEDS: GABAPENTIN 100 MG CAPSULE PO SCH (09:19)
[2020-02-09] MEDS: MAGNESIUM CHLORIDE 64 MG TABLET PO SCH (09:19)
[2020-02-09] MEDS: PANTOPRAZOLE 40 MG TABLET PO SCH (09:19)
[2020-02-09] MEDS: LINACLOTIDE 145 MCG CAPSULE PO SCH (09:22)
[2020-02-09] MEDS ORDERED: INSULIN GLARGINE 100 UNIT/ML SUBCUT SCH (21:00)
[2020-02-09] MEDS: ATORVASTATIN 20 MG TABLET PO SCH (22:09)
[2020-02-09] MEDS: hydrALAZINE 25 MG TABLET PO SCH (22:09)
[2020-02-09] MEDS: FAMOTIDINE 20 MG TABLET PO SCH (22:09)
[2020-02-10] MEDS: ALBUTEROL/IPRATROPIUM 3 ML NEB RESP TX SCH ×4 (00:52→19:58)
[2020-02-10] MEDS: MEROPENEM 500 MG in SODIUM CHLORIDE 0.9% 100 ML IV SCH ×2 (02:06→12:49)
[2020-02-10] MEDS: LEVOTHYROXINE 25 MCG TABLET PO SCH (05:54)
[2020-02-10 06:49] LABS: Basophils % 0.4 % (0.0-0.8); Eosinophils # 0.5 10*3/uL (0.0-0.87); Eosinophils % 6.4 % (0.00-10.9); Hematocrit 27.7 VOL% (35.7-47.0); Hemoglobin 9.2 GM/DL (12.0-16.0); Immature Granulocytes % 0.5 %; Immature Granulocytes Absolute 0.04 #; Lymphocytes # 1.8 10*3/uL (1.4-4.0); Lymphocytes % 20.7 % (21.3-54.2); Mean Corpuscular HGB Conc 33.2 GM/DL (32-36); Mean Corpuscular Volume 91.4 FL (87-102); Mean Platelet Volume 9.1 FL (9.6-12.0); Monocytes % 7.3 % (1.7-12.7); Neutrophils % 64.7 % (38.7-73.9); Platelet Count 181 T/CUMM (130-400); Red Blood Count 3.03 MC/CUMM (3.8-5.5); Red Cell Distribution Width 14.1 % (9.3-17.3); White Blood Count 8.5 T/CUMM (4-12)
[2020-02-10 07:19] LABS: Calcium 8.9 MG/DL (8.5-10.1)
[2020-02-10 07:20] LABS: Albumin 1.9 G/DL (3.4-5.0); Calcium 8.5 MG/DL (8.5-10.1)
[2020-02-10] MEDS: APIXABAN 2.5 MG TABLET PO SCH ×2 (08:49→22:00)
[2020-02-10] MEDS: PROPRANOLOL 20 MG TABLET PO SCH ×2 (08:49→22:01)
[2020-02-10] MEDS: FERROUS SULFATE 325 MG TABLET PO SCH (08:49)
[2020-02-10] MEDS: GABAPENTIN 100 MG CAPSULE PO SCH (08:49)
[2020-02-10] MEDS: CHOLECALCIFEROL 1,000 UNIT TABLET PO SCH (08:49)
[2020-02-10] MEDS: TAMSULOSIN 0.4 MG CAPSULE PO SCH (08:50)
[2020-02-10] MEDS: hydrALAZINE 25 MG TABLET PO SCH ×4 (08:50→22:00)
[2020-02-10] MEDS: MAGNESIUM CHLORIDE 64 MG TABLET PO SCH (08:50)
[2020-02-10] MEDS: SIMETHICONE CHEW 125 MG TABLET PO PRN (08:51)
[2020-02-10] MEDS: CALCIUM CARBONATE CHEW 500 MG TABLET PO PRN (08:51)
[2020-02-10] MEDS: DOCUSATE SODIUM 100 MG CAPSULE PO SCH (08:51)
[2020-02-10] MEDS: MENTHOL/ZINC OXIDE OINT 71 GM JAR TOP SCH ×2 (08:51→21:59)
[2020-02-10] MEDS: PANTOPRAZOLE 40 MG TABLET PO SCH (08:51)
[2020-02-10] MEDS: ASCORBIC ACID 500 MG TABLET PO SCH ×2 (08:51→22:01)
[2020-02-10] MEDS: LINACLOTIDE 145 MCG CAPSULE PO SCH (08:51)
[2020-02-10] MEDS: INSULIN REGULAR 100 UNIT/ML SUBCUT SCH ×4 (08:52→21:59)
[2020-02-10] MEDS ORDERED: INSULIN GLARGINE 100 UNIT/ML SUBCUT SCH (10:53)
[2020-02-10] MEDS ORDERED: hydrALAZINE 25 MG TABLET PO SCH (15:00)
[2020-02-10] MEDS: FAMOTIDINE 20 MG TABLET PO SCH (22:01)
[2020-02-10] MEDS: ATORVASTATIN 20 MG TABLET PO SCH (22:01)
[2020-02-11] MEDS: MEROPENEM 500 MG in SODIUM CHLORIDE 0.9% 100 ML IV SCH ×2 (01:23→14:36)
[2020-02-11] MEDS: ALBUTEROL/IPRATROPIUM 3 ML NEB RESP TX SCH ×3 (02:02→13:46)
[2020-02-11] MEDS: LEVOTHYROXINE 25 MCG TABLET PO SCH (05:40)
[2020-02-11 06:53] LABS: Basophils % 0.3 % (0.0-0.8); Eosinophils # 0.5 10*3/uL (0.0-0.87); Eosinophils % 5.8 % (0.00-10.9); Hematocrit 26.5 VOL% (35.7-47.0); Hemoglobin 8.9 GM/DL (12.0-16.0); Immature Granulocytes % 0.5 %; Immature Granulocytes Absolute 0.04 #; Lymphocytes # 1.6 10*3/uL (1.4-4.0); Lymphocytes % 18.1 % (21.3-54.2); Mean Corpuscular HGB Conc 33.6 GM/DL (32-36); Mean Corpuscular Volume 90.8 FL (87-102); Mean Platelet Volume 8.9 FL (9.6-12.0); Monocytes % 6.3 % (1.7-12.7); Platelet Count 208 T/CUMM (130-400); Red Blood Count 2.92 MC/CUMM (3.8-5.5); White Blood Count 8.8 T/CUMM (4-12)
[2020-02-11 07:12] LABS: Albumin 1.7 G/DL (3.4-5.0); Calcium 8.9 MG/DL (8.5-10.1)
[2020-02-11 07:20] LABS: Calcium 8.9 MG/DL (8.5-10.1)
[2020-02-11] MEDS: MAGNESIUM CHLORIDE 64 MG TABLET PO SCH (10:15)
[2020-02-11] MEDS: TAMSULOSIN 0.4 MG CAPSULE PO SCH (10:15)
[2020-02-11] MEDS: FERROUS SULFATE 325 MG TABLET PO SCH (10:15)
[2020-02-11] MEDS: CHOLECALCIFEROL 1,000 UNIT TABLET PO SCH (10:15)
[2020-02-11] MEDS: ASCORBIC ACID 500 MG TABLET PO SCH (10:15)
[2020-02-11] MEDS: GABAPENTIN 100 MG CAPSULE PO SCH (10:16)
[2020-02-11] MEDS: PROPRANOLOL 20 MG TABLET PO SCH (10:16)
[2020-02-11] MEDS: PANTOPRAZOLE 40 MG TABLET PO SCH (10:16)
[2020-02-11] MEDS: hydrALAZINE 25 MG TABLET PO SCH ×2 (10:17→14:07)
[2020-02-11] MEDS: APIXABAN 2.5 MG TABLET PO SCH (10:17)
[2020-02-11] MEDS: DOCUSATE SODIUM 100 MG CAPSULE PO SCH (10:25)
[2020-02-11] MEDS: MENTHOL/ZINC OXIDE OINT 71 GM JAR TOP SCH (10:25)
[2020-02-11] MEDS: INSULIN REGULAR 100 UNIT/ML SUBCUT SCH ×2 (10:25→14:07)
[2020-02-11] MEDS: LINACLOTIDE 145 MCG CAPSULE PO SCH (10:27)
[2020-02-11 13:08] VITALS: BP 151/69
[2020-02-11] MEDS ORDERED: FUROSEMIDE 40 MG/4 ML VIAL IV ONE (13:19)
== END 2020-02-11 15:02 | DRG 871 ==
LOC: EDUNIT# → EDBD → N.ED 16:07 → N.EDINP 17:54 → N.5E 19:52
PROVIDERS: ADMIT Internal Medicine; ATTEND Internal Medicine

== ENCOUNTER 2020-10-12 11:10 | Observation (INO) ==
[2020-10-12] MEDS ORDERED: SODIUM CHLORIDE 0.9% 1,000 ML IV STA (11:47)
[2020-10-12 11:53] LABS: Basophils % 0.5 % (0.0-0.8); Eosinophils # 0.2 10*3/uL (0.0-0.87); Eosinophils % 2.7 % (0.00-10.9); Hematocrit 33.1 VOL% (35.7-47.0); Hemoglobin 11.5 GM/DL (12.0-16.0); Immature Granulocytes % 0.5 %; Immature Granulocytes Absolute 0.04 #; Lymphocytes # 2.1 10*3/uL (1.4-4.0); Lymphocytes % 26.8 % (21.3-54.2); Mean Corpuscular HGB Conc 34.7 GM/DL (32-36); Mean Corpuscular Volume 90.9 FL (87-102); Mean Platelet Volume 9.6 FL (9.6-12.0); Neutrophils % 58.5 % (38.7-73.9); Platelet Count 146 T/CUMM (130-400); Red Blood Count 3.64 MC/CUMM (3.8-5.5); Red Cell Distribution Width 13.3 % (9.3-17.3); White Blood Count 7.8 T/CUMM (4-12)
[2020-10-12 12:06] LABS: Bilirubin,Total 0.8 MG/DL (0.2-1.0); Calcium 8.9 MG/DL (8.5-10.1); Osmolality,Calculated 290.1 MOS/KG (273-304); Total Protein 7.6 G/DL (6.4-8.3)
[2020-10-12 12:14] LABS: Bacteria,Urine Many /HPF (Few); Bilirubin,Urine Negative (Negative); Blood, Urine Small mg/dL (Negative); Glucose,Urine (UA) >=500 mg/dL (Negative); Ketones,Urine Negative (Negative); Nitrite,Urine Negative (Negative); Protein,Urine Negative; Squamous Epithelial Cell,Urine Occasional /HPF (0-10); Urine Appearance CLOUDY (Clear); Urine Color Yellow (Yellow); Urine Specific Gravity 1.009 (1.001-1.035); Urine Urobilinogen < 2.0 EU/DL (0.2-1.0); WBC,Urine 83 /HPF (0-6)
[2020-10-12] MEDS ORDERED: cefTRIAXone 1,000 MG in SODIUM CHLORIDE 0.9% 100 ML IV STA (14:12)
[2020-10-12] MEDS ORDERED: hydrALAZINE 20 MG/1 ML VIAL IM STA (14:34)
[2020-10-12] MEDS ORDERED: hydrALAZINE 20 MG/1 ML VIAL IV STA (14:34)
[2020-10-12] MEDS ORDERED: MEROPENEM 500 MG in SODIUM CHLORIDE 0.9% 100 ML IV STA (15:05)
[2020-10-12] MEDS ORDERED: DEXTROSE 50% 25 GM/50 ML VIAL IV PRN (15:07)
[2020-10-12] MEDS ORDERED: GLUCAGON 1 MG VIAL IM PRN (15:07)
[2020-10-12] MEDS ORDERED: DOCUSATE SODIUM 100 MG CAPSULE PO PRN (15:07)
[2020-10-12] MEDS ORDERED: ONDANSETRON 4 MG/2 ML VIAL IV PRN (15:07)
[2020-10-12] MEDS ORDERED: hydrALAZINE 20 MG/1 ML VIAL IV PRN (15:19)
[2020-10-12] MEDS ORDERED: MEROPENEM 500 MG VIAL ONE (15:21)
[2020-10-12] MEDS ORDERED: ENOXAPARIN 40 MG/0.4 ML SYRINGE SUBCUT SCH (15:30)
[2020-10-12] MEDS ORDERED: cloNIDine 0.1 MG TABLET ONE (16:13)
[2020-10-12] MEDS ORDERED: cloNIDine 0.1 MG TABLET PO STA (16:54)
[2020-10-12] MEDS ORDERED: niCARdipine INJ 25 MG in SODIUM CHLORIDE 0.9% 240 ML IV PRN (16:57)
[2020-10-12] MEDS: INSULIN LISPRO 100 UNIT/ML SUBCUT SCH ×2 (17:55→22:20)
[2020-10-12] MEDS ORDERED: INFLUENZA VIRUS VACCINE 0.5 ML SYRINGE IM ONE (19:04)
[2020-10-12] MEDS: hydrALAZINE 25 MG TABLET PO SCH ×2 (19:13→22:20)
[2020-10-12] MEDS: SODIUM CHLORIDE 0.45% 1,000 ML IV SCH (19:15)
[2020-10-12] MEDS: TAMSULOSIN 0.4 MG CAPSULE PO SCH (22:19)
[2020-10-12] MEDS: ACETAMINOPHEN 325 MG TABLET PO PRN (22:19)
[2020-10-12] MEDS: ATORVASTATIN 20 MG TABLET PO SCH (22:19)
[2020-10-12] MEDS: QUEtiapine 25 MG TABLET PO SCH (22:19)
[2020-10-12] MEDS: PROPRANOLOL 20 MG TABLET PO SCH (22:19)
[2020-10-12] MEDS: APIXABAN 2.5 MG TABLET PO SCH (22:19)
[2020-10-12] MEDS: INSULIN GLARGINE 100 UNIT/ML SUBCUT SCH (22:20)
[2020-10-12] MEDS: glipiZIDE 10 MG TABLET PO SCH (22:21)
[2020-10-13] MEDS: MEROPENEM 500 MG in SODIUM CHLORIDE 0.9% 100 ML IV SCH ×4 (00:59→22:51)
[2020-10-13] MEDS: ACETAMINOPHEN 325 MG TABLET PO PRN (05:54)
[2020-10-13] MEDS: LEVOTHYROXINE 25 MCG TABLET PO SCH (05:54)
[2020-10-13 06:06] LABS: Basophils % 0.3 % (0.0-0.8); Eosinophils # 0.4 10*3/uL (0.0-0.87); Eosinophils % 6.1 % (0.00-10.9); Hematocrit 30.6 VOL% (35.7-47.0); Hemoglobin 10.4 GM/DL (12.0-16.0); Immature Granulocytes % 0.3 %; Immature Granulocytes Absolute 0.02 #; Lymphocytes # 1.9 10*3/uL (1.4-4.0); Lymphocytes % 27.6 % (21.3-54.2); Mean Corpuscular Volume 91.9 FL (87-102); Mean Platelet Volume 9.8 FL (9.6-12.0); Neutrophils % 52.7 % (38.7-73.9); Platelet Count 136 T/CUMM (130-400); Red Blood Count 3.33 MC/CUMM (3.8-5.5); Red Cell Distribution Width 13.4 % (9.3-17.3); White Blood Count 6.8 T/CUMM (4-12)
[2020-10-13 06:24] LABS: Calcium 8.6 MG/DL (8.5-10.1); Osmolality,Calculated 283.3 MOS/KG (273-304)
[2020-10-13] MEDS: PANTOPRAZOLE 40 MG TABLET PO SCH (10:22)
[2020-10-13] MEDS: INSULIN LISPRO 100 UNIT/ML SUBCUT SCH ×4 (10:23→20:40)
[2020-10-13] MEDS: PROPRANOLOL 20 MG TABLET PO SCH ×2 (10:23→20:39)
[2020-10-13] MEDS: hydrALAZINE 25 MG TABLET PO SCH ×4 (10:23→20:40)
[2020-10-13] MEDS: APIXABAN 2.5 MG TABLET PO SCH ×2 (10:23→20:39)
[2020-10-13] MEDS: SODIUM CHLORIDE 0.45% 1,000 ML IV SCH ×2 (10:24→18:33)
[2020-10-13] MEDS: glipiZIDE 10 MG TABLET PO SCH ×2 (10:25→20:40)
[2020-10-13] MEDS: INSULIN GLARGINE 100 UNIT/ML SUBCUT SCH (20:38)
[2020-10-13] MEDS: TAMSULOSIN 0.4 MG CAPSULE PO SCH (20:38)
[2020-10-13] MEDS: QUEtiapine 25 MG TABLET PO SCH (20:39)
[2020-10-13] MEDS: ATORVASTATIN 20 MG TABLET PO SCH (20:40)
[2020-10-14] MEDS: SODIUM CHLORIDE 0.45% 1,000 ML IV SCH ×3 (01:05→14:49)
[2020-10-14 05:27] LABS: Basophils # 0.1 10*3/uL (0.0-0.2); Basophils % 0.9 % (0.0-0.8); Eosinophils # 0.5 10*3/uL (0.0-0.87); Eosinophils % 7.3 % (0.00-10.9); Hematocrit 33.3 VOL% (35.7-47.0); Hemoglobin 11.4 GM/DL (12.0-16.0); Immature Granulocytes % 0.4 %; Immature Granulocytes Absolute 0.03 #; Lymphocytes # 1.6 10*3/uL (1.4-4.0); Lymphocytes % 23.7 % (21.3-54.2); Mean Corpuscular HGB Conc 34.2 GM/DL (32-36); Mean Corpuscular Volume 91.7 FL (87-102); Mean Platelet Volume 9.5 FL (9.6-12.0); Monocytes % 10.3 % (1.7-12.7); Neutrophils % 57.4 % (38.7-73.9); Platelet Count 140 T/CUMM (130-400); Red Blood Count 3.63 MC/CUMM (3.8-5.5); Red Cell Distribution Width 13.2 % (9.3-17.3); White Blood Count 6.7 T/CUMM (4-12)
[2020-10-14] MEDS: LEVOTHYROXINE 25 MCG TABLET PO SCH (05:48)
[2020-10-14 05:57] LABS: Calcium 8.6 MG/DL (8.5-10.1); Osmolality,Calculated 291.1 MOS/KG (273-304)
[2020-10-14] MEDS: MEROPENEM 500 MG in SODIUM CHLORIDE 0.9% 100 ML IV SCH ×3 (08:47→22:25)
[2020-10-14] MEDS: INSULIN LISPRO 100 UNIT/ML SUBCUT SCH ×4 (08:52→21:40)
[2020-10-14] MEDS: glipiZIDE 10 MG TABLET PO SCH ×2 (08:52→20:17)
[2020-10-14] MEDS: APIXABAN 2.5 MG TABLET PO SCH ×2 (08:52→20:18)
[2020-10-14] MEDS: hydrALAZINE 25 MG TABLET PO SCH ×3 (08:52→16:16)
[2020-10-14] MEDS: PANTOPRAZOLE 40 MG TABLET PO SCH (08:52)
[2020-10-14] MEDS: PROPRANOLOL 20 MG TABLET PO SCH ×2 (08:52→20:18)
[2020-10-14] MEDS ORDERED: INFLUENZA VIRUS VACCINE 0.5 ML SYRINGE IM ONE ×2 (09:00→14:17)
[2020-10-14] MEDS: PREGABALIN 25 MG CAPSULE PO SCH (17:27)
[2020-10-14] MEDS: ATORVASTATIN 20 MG TABLET PO SCH (20:17)
[2020-10-14] MEDS: INSULIN GLARGINE 100 UNIT/ML SUBCUT SCH (20:17)
[2020-10-14] MEDS: TAMSULOSIN 0.4 MG CAPSULE PO SCH (20:18)
[2020-10-14] MEDS: QUEtiapine 25 MG TABLET PO SCH (20:18)
[2020-10-14] MEDS ORDERED: PREGABALIN 50 MG CAPSULE PO SCH (21:00)
[2020-10-15] MEDS: SODIUM CHLORIDE 0.45% 1,000 ML IV SCH (02:09)
[2020-10-15 04:47] LABS: Basophils % 0.5 % (0.0-0.8); Eosinophils # 0.5 10*3/uL (0.0-0.87); Hematocrit 31.5 VOL% (35.7-47.0); Hemoglobin 10.7 GM/DL (12.0-16.0); Immature Granulocytes % 0.3 %; Immature Granulocytes Absolute 0.02 #; Lymphocytes # 1.9 10*3/uL (1.4-4.0); Lymphocytes % 31.3 % (21.3-54.2); Mean Corpuscular Volume 91.3 FL (87-102); Mean Platelet Volume 9.1 FL (9.6-12.0); Monocytes % 10.8 % (1.7-12.7); Neutrophils % 49.1 % (38.7-73.9); Platelet Count 141 T/CUMM (130-400); Red Blood Count 3.45 MC/CUMM (3.8-5.5); Red Cell Distribution Width 13.3 % (9.3-17.3); White Blood Count 5.9 T/CUMM (4-12)
[2020-10-15 05:11] LABS: Calcium 8.7 MG/DL (8.5-10.1); Osmolality,Calculated 290.3 MOS/KG (273-304)
[2020-10-15] MEDS: LEVOTHYROXINE 25 MCG TABLET PO SCH (06:15)
[2020-10-15] MEDS: MEROPENEM 500 MG in SODIUM CHLORIDE 0.9% 100 ML IV SCH ×3 (06:15→23:25)
[2020-10-15] MEDS: glipiZIDE 10 MG TABLET PO SCH ×2 (10:12→21:04)
[2020-10-15] MEDS: PREGABALIN 25 MG CAPSULE PO SCH (10:12)
[2020-10-15] MEDS: PROPRANOLOL 20 MG TABLET PO SCH ×2 (10:12→21:04)
[2020-10-15] MEDS: APIXABAN 2.5 MG TABLET PO SCH ×2 (10:12→21:04)
[2020-10-15] MEDS: PANTOPRAZOLE 40 MG TABLET PO SCH (10:13)
[2020-10-15] MEDS: amLODIPine 10 MG TABLET PO SCH (10:13)
[2020-10-15] MEDS: INSULIN LISPRO 100 UNIT/ML SUBCUT SCH ×4 (10:15→21:15)
[2020-10-15] MEDS: ACETAMINOPHEN 325 MG TABLET PO PRN (11:54)
[2020-10-15] MEDS: hydrALAZINE 25 MG TABLET PO SCH ×3 (12:02→21:04)
[2020-10-15] MEDS: QUEtiapine 25 MG TABLET PO SCH (21:04)
[2020-10-15] MEDS: ATORVASTATIN 20 MG TABLET PO SCH (21:04)
[2020-10-15] MEDS: TAMSULOSIN 0.4 MG CAPSULE PO SCH (21:04)
[2020-10-15] MEDS: INSULIN GLARGINE 100 UNIT/ML SUBCUT SCH (21:04)
[2020-10-16 05:18] LABS: Basophils % 0.5 % (0.0-0.8); Eosinophils # 0.4 10*3/uL (0.0-0.87); Eosinophils % 5.6 % (0.00-10.9); Hematocrit 33.3 VOL% (35.7-47.0); Hemoglobin 11.5 GM/DL (12.0-16.0); Immature Granulocytes % 0.3 %; Immature Granulocytes Absolute 0.02 #; Lymphocytes # 1.7 10*3/uL (1.4-4.0); Lymphocytes % 25.8 % (21.3-54.2); Mean Corpuscular HGB Conc 34.5 GM/DL (32-36); Mean Corpuscular Volume 91.7 FL (87-102); Mean Platelet Volume 9.3 FL (9.6-12.0); Monocytes % 9.3 % (1.7-12.7); Neutrophils % 58.5 % (38.7-73.9); Platelet Count 146 T/CUMM (130-400); Red Blood Count 3.63 MC/CUMM (3.8-5.5); Red Cell Distribution Width 13.2 % (9.3-17.3); White Blood Count 6.6 T/CUMM (4-12)
[2020-10-16 05:31] LABS: Osmolality,Calculated 287.8 MOS/KG (273-304)
[2020-10-16] MEDS: LEVOTHYROXINE 25 MCG TABLET PO SCH (05:53)
[2020-10-16] MEDS: MEROPENEM 500 MG in SODIUM CHLORIDE 0.9% 100 ML IV SCH ×2 (06:01→15:20)
[2020-10-16] MEDS: APIXABAN 2.5 MG TABLET PO SCH ×2 (09:01→21:46)
[2020-10-16] MEDS: PREGABALIN 25 MG CAPSULE PO SCH (09:01)
[2020-10-16] MEDS: PANTOPRAZOLE 40 MG TABLET PO SCH (09:01)
[2020-10-16] MEDS: hydrALAZINE 25 MG TABLET PO SCH (09:01)
[2020-10-16] MEDS: DOCUSATE SODIUM 100 MG CAPSULE PO PRN (09:02)
[2020-10-16] MEDS: amLODIPine 10 MG TABLET PO SCH (09:02)
[2020-10-16] MEDS: guaiFENesin 200 MG/10 ML UDCUP PO PRN (09:02)
[2020-10-16] MEDS: glipiZIDE 10 MG TABLET PO SCH ×2 (09:02→21:46)
[2020-10-16] MEDS: PROPRANOLOL 20 MG TABLET PO SCH ×2 (09:02→21:46)
[2020-10-16] MEDS: INSULIN LISPRO 100 UNIT/ML SUBCUT SCH ×4 (09:48→21:47)
[2020-10-16] MEDS ORDERED: cloNIDine 0.1 MG/24 HR PATCH TRANSDERM SCH (14:00)
[2020-10-16] MEDS: ACETAMINOPHEN 325 MG TABLET PO PRN (17:41)
[2020-10-16] MEDS: QUEtiapine 25 MG TABLET PO SCH (21:46)
[2020-10-16] MEDS: INSULIN GLARGINE 100 UNIT/ML SUBCUT SCH (21:46)
[2020-10-16] MEDS: ATORVASTATIN 20 MG TABLET PO SCH (21:46)
[2020-10-16] MEDS: TAMSULOSIN 0.4 MG CAPSULE PO SCH (21:46)
[2020-10-17] MEDS: MEROPENEM 500 MG in SODIUM CHLORIDE 0.9% 100 ML IV SCH ×2 (03:43→06:30)
[2020-10-17 05:46] LABS: Basophils % 0.4 % (0.0-0.8); Eosinophils # 0.5 10*3/uL (0.0-0.87); Eosinophils % 6.4 % (0.00-10.9); Hematocrit 30.1 VOL% (35.7-47.0); Hemoglobin 10.2 GM/DL (12.0-16.0); Immature Granulocytes % 0.4 %; Immature Granulocytes Absolute 0.03 #; Lymphocytes # 2.1 10*3/uL (1.4-4.0); Lymphocytes % 29.5 % (21.3-54.2); Mean Corpuscular HGB Conc 33.9 GM/DL (32-36); Mean Corpuscular Volume 91.8 FL (87-102); Mean Platelet Volume 9.2 FL (9.6-12.0); Monocytes % 8.6 % (1.7-12.7); Neutrophils % 54.7 % (38.7-73.9); Platelet Count 146 T/CUMM (130-400); Red Blood Count 3.28 MC/CUMM (3.8-5.5); Red Cell Distribution Width 13.5 % (9.3-17.3); White Blood Count 7.2 T/CUMM (4-12)
[2020-10-17 06:16] LABS: Calcium 8.4 MG/DL (8.5-10.1); Osmolality,Calculated 287.3 MOS/KG (273-304)
[2020-10-17] MEDS: LEVOTHYROXINE 25 MCG TABLET PO SCH (06:30)
[2020-10-17] MEDS ORDERED: HALOPERIDOL 5 MG/ML AMP IM ONE (08:51)
[2020-10-17] MEDS ORDERED: ERTAPENEM 1,000 MG in SODIUM CHLORIDE 0.9% 100 ML IV SCH (09:00)
[2020-10-17] MEDS: PROPRANOLOL 20 MG TABLET PO SCH (09:13)
[2020-10-17] MEDS: glipiZIDE 10 MG TABLET PO SCH (09:13)
[2020-10-17] MEDS: PREGABALIN 25 MG CAPSULE PO SCH (09:13)
[2020-10-17] MEDS: PANTOPRAZOLE 40 MG TABLET PO SCH (09:13)
[2020-10-17] MEDS: amLODIPine 10 MG TABLET PO SCH (09:13)
[2020-10-17] MEDS: INSULIN LISPRO 100 UNIT/ML SUBCUT SCH ×2 (09:13→12:45)
[2020-10-17] MEDS: DOCUSATE SODIUM 100 MG CAPSULE PO PRN (09:13)
[2020-10-17] MEDS: APIXABAN 2.5 MG TABLET PO SCH (09:13)
[2020-10-17] MEDS: guaiFENesin 200 MG/10 ML UDCUP PO PRN (09:13)
[2020-10-17 12:24] VITALS: BP 139/72
== END 2020-10-17 13:16 | disposition home or self-care (01) ==
LOC: EDBD → EDUNIT# → N.ED 11:10 → INTOOBSV 16:58 → N.EDINP 16:58 → SUATTDRO 16:58 → N.EDINP 18:36 → N.TELES 18:41
PROVIDERS: ADMIT Internal Medicine; ATTEND Internal Medicine

== ENCOUNTER 2020-10-27 07:05 | Inpatient (IN) ==
[2020-10-27] MEDS ORDERED: SODIUM CHLORIDE 0.9% 1,000 ML IV STA (07:29)
[2020-10-27 08:32] LABS: Basophils # 0.1 10*3/uL (0.0-0.2); Basophils % 0.4 % (0.0-0.8); Eosinophils # 0.1 10*3/uL (0.0-0.87); Eosinophils % 0.8 % (0.00-10.9); Hematocrit 36.4 VOL% (35.7-47.0); Hemoglobin 12.1 GM/DL (12.0-16.0); Immature Granulocytes % 0.8 %; Immature Granulocytes Absolute 0.12 #; Lymphocytes # 2.1 10*3/uL (1.4-4.0); Lymphocytes % 14.4 % (21.3-54.2); Mean Corpuscular HGB Conc 33.2 GM/DL (32-36); Mean Corpuscular Volume 95.8 FL (87-102); Mean Platelet Volume 9.3 FL (9.6-12.0); Monocytes % 5.4 % (1.7-12.7); Neutrophils % 78.2 % (38.7-73.9); Platelet Count 194 T/CUMM (130-400); Red Cell Distribution Width 13.8 % (9.3-17.3); White Blood Count 14.3 T/CUMM (4-12)
[2020-10-27 08:42] LABS: Albumin 3.2 G/DL (3.4-5.0); Bilirubin,Total 0.6 MG/DL (0.2-1.0); Calcium 8.9 MG/DL (8.5-10.1); Osmolality,Calculated 288.8 MOS/KG (273-304); Total Protein 8.1 G/DL (6.4-8.3)
[2020-10-27 08:54] LABS: Bilirubin,Urine Negative (Negative); Blood, Urine Negative (Negative); Glucose,Urine (UA) 150 mg/dL (Negative); Ketones,Urine Negative (Negative); Nitrite,Urine Negative (Negative); Protein,Urine 30 MG/DL; Urine Appearance CLOUDY (Clear); Urine Color Yellow (Yellow); Urine Specific Gravity 1.009 (1.001-1.035); Urine Urobilinogen < 2.0 EU/DL (0.2-1.0); WBC,Urine 1536 /HPF (0-6)
[2020-10-27 09:21] LABS: Barbiturates Screen,Urine Negative (Negative); Benzodiazepines Screen,Urine Positive (Negative); Cannabinoid Screen,Urine Negative (Negative); Opiate Screen,Urine Negative (Negative); Phencyclidine Screen,Urine Negative (Negative)
[2020-10-27] MEDS ORDERED: ERTAPENEM 500 MG in SODIUM CHLORIDE 0.9% 100 ML IV SCH (09:30)
[2020-10-27] MEDS ORDERED: ONDANSETRON 4 MG/2 ML VIAL IV PRN (09:46)
[2020-10-27] MEDS ORDERED: ALBUTEROL 2.5 MG/3 ML NEB RESP TX PRN (09:46)
[2020-10-27] MEDS ORDERED: ENOXAPARIN 30 MG/0.3 ML SYRINGE SUBCUT SCH (10:00)
[2020-10-27] MEDS ORDERED: AMIKACIN 500 MG in SODIUM CHLORIDE 0.9% 100 ML IV SCH (10:00)
[2020-10-27] MEDS: DEXAMETHASONE 4 MG/1 ML VIAL IV SCH (11:44)
[2020-10-27] MEDS: FAMOTIDINE 20 MG/2 ML VIAL IV SCH ×2 (11:45→21:24)
[2020-10-27] MEDS: DOPamine 800 MG/250 ML PREMIX IV SCH (11:45)
[2020-10-27] MEDS ORDERED: cloNIDine 0.1 MG/24 HR PATCH TRANSDERM SCH (12:00)
[2020-10-27] MEDS: LACTATED RINGERS 1,000 ML IV SCH ×3 (12:30→21:08)
[2020-10-27] MEDS: MEROPENEM 500 MG in SODIUM CHLORIDE 0.9% 100 ML IV SCH ×2 (12:50→21:06)
[2020-10-27] MEDS: AMIKACIN 350 MG in SODIUM CHLORIDE 0.9% 100 ML IV SCH (13:48)
[2020-10-27] MEDS: ACETAMINOPHEN 325 MG TABLET PO PRN ×2 (14:21→18:18)
[2020-10-27] MEDS ORDERED: GLUCAGON 1 MG VIAL IM PRN (20:35)
[2020-10-27] MEDS ORDERED: DEXTROSE 50% 25 GM/50 ML VIAL IV PRN (20:35)
[2020-10-27] MEDS ORDERED: INSULIN REGULAR 100 UNIT/ML ONE (20:43)
[2020-10-27] MEDS: ATORVASTATIN 20 MG TABLET PO SCH (20:50)
[2020-10-27] MEDS: APIXABAN 2.5 MG TABLET PO SCH (20:50)
[2020-10-27] MEDS: QUEtiapine 25 MG TABLET PO SCH (20:50)
[2020-10-27] MEDS: INSULIN GLARGINE 100 UNIT/ML SUBCUT SCH (21:09)
[2020-10-27] MEDS: PREGABALIN 50 MG CAPSULE PO SCH (21:09)
[2020-10-27] MEDS: INSULIN REGULAR 100 UNIT/ML SUBCUT SCH (21:16)
[2020-10-28] MEDS: INSULIN GLARGINE 100 UNIT/ML SUBCUT SCH ×2 (00:20→20:42)
[2020-10-28] MEDS: LACTATED RINGERS 1,000 ML IV SCH ×3 (04:06→15:05)
[2020-10-28 04:10] LABS: Hematocrit 28.2 VOL% (35.7-47.0); Immature Granulocytes % 0.6 %; Immature Granulocytes Absolute 0.07 #; Lymphocytes # 0.8 10*3/uL (1.4-4.0); Lymphocytes % 7.3 % (21.3-54.2); Mean Corpuscular HGB Conc 34.4 GM/DL (32-36); Mean Corpuscular Volume 91.9 FL (87-102); Mean Platelet Volume 9.7 FL (9.6-12.0); Monocytes % 3.5 % (1.7-12.7); Neutrophils % 88.6 % (38.7-73.9); Platelet Count 157 T/CUMM (130-400); Red Blood Count 3.07 MC/CUMM (3.8-5.5); Red Cell Distribution Width 13.7 % (9.3-17.3); White Blood Count 10.9 T/CUMM (4-12)
[2020-10-28] MEDS: MEROPENEM 500 MG in SODIUM CHLORIDE 0.9% 100 ML IV SCH ×3 (04:10→20:53)
[2020-10-28 04:13] LABS: Hemoglobin 9.7 GM/DL (12.0-16.0)
[2020-10-28 04:30] LABS: Calcium 8.6 MG/DL (8.5-10.1); Osmolality,Calculated 298.5 MOS/KG (273-304); Thyroid Stimulating Hormone 0.838 uIU/ml (0.358-3.74)
[2020-10-28] MEDS: INSULIN REGULAR 100 UNIT/ML SUBCUT SCH ×5 (06:07→20:42)
[2020-10-28] MEDS: ZIPRASIDONE 20 MG/1 ML VIAL IM PRN (07:30)
[2020-10-28] MEDS: PREGABALIN 50 MG CAPSULE PO SCH ×3 (08:26→20:45)
[2020-10-28] MEDS: DEXAMETHASONE 4 MG/1 ML VIAL IV SCH (08:26)
[2020-10-28] MEDS: APIXABAN 2.5 MG TABLET PO SCH ×2 (08:26→20:44)
[2020-10-28] MEDS ORDERED: ZINC OXIDE PASTE 113 GM TUBE TOP PRN (08:54)
[2020-10-28] MEDS: DOPamine 800 MG/250 ML PREMIX IV SCH (09:11)
[2020-10-28] MEDS: FAMOTIDINE 20 MG/2 ML VIAL IV SCH (09:16)
[2020-10-28] MEDS ORDERED: INSULIN GLARGINE 100 UNIT/ML SUBCUT SCH (11:33)
[2020-10-28] MEDS: ALBUTEROL/IPRATROPIUM 3 ML NEB RESP TX SCH ×2 (14:35→19:53)
[2020-10-28] MEDS ORDERED: DOCUSATE SODIUM 100 MG CAPSULE PO PRN (16:40)
[2020-10-28] MEDS: amLODIPine 10 MG TABLET PO SCH (16:49)
[2020-10-28] MEDS: QUEtiapine 25 MG TABLET PO SCH (20:43)
[2020-10-28] MEDS: PROPRANOLOL 20 MG TABLET PO SCH (20:44)
[2020-10-28] MEDS: ATORVASTATIN 20 MG TABLET PO SCH (20:44)
[2020-10-28] MEDS: MELATONIN 3 MG TABLET PO SCH (21:31)
[2020-10-29] MEDS: LACTATED RINGERS 1,000 ML IV SCH ×2 (00:18→07:05)
[2020-10-29] MEDS: FAMOTIDINE 20 MG/2 ML VIAL IV SCH ×3 (00:19→23:27)
[2020-10-29] MEDS: ALBUTEROL/IPRATROPIUM 3 ML NEB RESP TX SCH ×4 (01:20→19:41)
[2020-10-29] MEDS: AMIKACIN 350 MG in SODIUM CHLORIDE 0.9% 100 ML IV SCH (01:27)
[2020-10-29 03:33] LABS: ABG HCO3 27.9 MMOL/L (20-26); ABG Oxygen Saturation 92.2 % (95-100); ABG PCO2 40.4 MM HG (35-48); ABG PH 7.452 (7.35-7.45); ABG PO2 63.6 MM HG (80-95); ABG TCO2 25.7 MMOL/L (23-27); Allen Test Positive
[2020-10-29 04:00] LABS: Basophils % 0.1 % (0.0-0.8); Hemoglobin 9.9 GM/DL (12.0-16.0); Immature Granulocytes % 0.8 %; Immature Granulocytes Absolute 0.13 #; Lymphocytes # 1.6 10*3/uL (1.4-4.0); Lymphocytes % 10.2 % (21.3-54.2); Mean Corpuscular HGB Conc 34.1 GM/DL (32-36); Mean Corpuscular Volume 92.7 FL (87-102); Mean Platelet Volume 9.3 FL (9.6-12.0); Neutrophils % 81.9 % (38.7-73.9); Platelet Count 159 T/CUMM (130-400); Red Blood Count 3.13 MC/CUMM (3.8-5.5); Red Cell Distribution Width 14.2 % (9.3-17.3); White Blood Count 15.3 T/CUMM (4-12)
[2020-10-29 04:24] LABS: Osmolality,Calculated 294.7 MOS/KG (273-304)
[2020-10-29] MEDS: MEROPENEM 500 MG in SODIUM CHLORIDE 0.9% 100 ML IV SCH (04:52)
[2020-10-29] MEDS ORDERED: FUROSEMIDE 40 MG/4 ML VIAL IV ONE (07:22)
[2020-10-29] MEDS: INSULIN REGULAR 100 UNIT/ML SUBCUT SCH ×4 (07:29→20:25)
[2020-10-29] MEDS: PROPRANOLOL 20 MG TABLET PO SCH ×2 (08:03→20:28)
[2020-10-29] MEDS: amLODIPine 10 MG TABLET PO SCH (08:03)
[2020-10-29] MEDS: PREGABALIN 50 MG CAPSULE PO SCH ×3 (08:03→20:30)
[2020-10-29] MEDS: APIXABAN 2.5 MG TABLET PO SCH ×2 (08:03→20:28)
[2020-10-29] MEDS: DEXAMETHASONE 4 MG/1 ML VIAL IV SCH (08:04)
[2020-10-29] MEDS: LEVOTHYROXINE 25 MCG TABLET PO SCH (08:40)
[2020-10-29] MEDS: ZIPRASIDONE 20 MG/1 ML VIAL IM PRN (08:45)
[2020-10-29] MEDS: DOPamine 800 MG/250 ML PREMIX IV SCH (09:05)
[2020-10-29] MEDS ORDERED: LORazepam 2 MG/1 ML VIAL IV PRN (09:28)
[2020-10-29] MEDS: diphenhydrAMINE CAP 50 MG CAPSULE PO SCH ×4 (09:41→23:27)
[2020-10-29] MEDS: HALOPERIDOL 5 MG/ML AMP IM PRN ×2 (09:54→17:03)
[2020-10-29] MEDS ORDERED: GENTAMICIN INJ 160 MG in SODIUM CHLORIDE 0.9% 100 ML IV ONE (10:50)
[2020-10-29] MEDS: FUROSEMIDE 40 MG/4 ML VIAL IV SCH (15:43)
[2020-10-29] MEDS: INSULIN GLARGINE 100 UNIT/ML SUBCUT SCH (20:28)
[2020-10-29] MEDS: ATORVASTATIN 20 MG TABLET PO SCH (20:29)
[2020-10-29] MEDS: QUEtiapine 25 MG TABLET PO SCH (20:30)
[2020-10-29] MEDS: MELATONIN 3 MG TABLET PO SCH (20:31)
[2020-10-29] MEDS: GENTAMICIN INJ 100 MG in PREMIX 1 EACH IV SCH (20:38)
[2020-10-30] MEDS: ALBUTEROL/IPRATROPIUM 3 ML NEB RESP TX SCH ×5 (00:25→22:00)
[2020-10-30 03:56] LABS: Basophils % 0.1 % (0.0-0.8); Hematocrit 31.2 VOL% (35.7-47.0); Hemoglobin 10.6 GM/DL (12.0-16.0); Immature Granulocytes % 0.5 %; Immature Granulocytes Absolute 0.06 #; Lymphocytes # 1.8 10*3/uL (1.4-4.0); Mean Corpuscular Volume 92.6 FL (87-102); Mean Platelet Volume 9.6 FL (9.6-12.0); Monocytes % 6.9 % (1.7-12.7); Neutrophils % 77.5 % (38.7-73.9); Platelet Count 143 T/CUMM (130-400); Red Blood Count 3.37 MC/CUMM (3.8-5.5); Red Cell Distribution Width 13.9 % (9.3-17.3)
[2020-10-30 04:11] LABS: ABG Base Excess 9.2 MMOL/L (-2.5-2.5); ABG HCO3 32.9 MMOL/L (20-26); ABG Oxygen Saturation 97.4 % (95-100); ABG PCO2 50.7 MM HG (35-48); ABG PH 7.444 (7.35-7.45); ABG PO2 91.9 MM HG (80-95); ABG TCO2 31.4 MMOL/L (23-27); Allen Test Positive; Pt O2 Delivery Device BIPAP
[2020-10-30 04:26] LABS: Calcium 9.2 MG/DL (8.5-10.1); Osmolality,Calculated 299.3 MOS/KG (273-304)
[2020-10-30] MEDS: diphenhydrAMINE CAP 50 MG CAPSULE PO SCH ×4 (04:52→21:15)
[2020-10-30] MEDS: FUROSEMIDE 40 MG/4 ML VIAL IV SCH (08:56)
[2020-10-30] MEDS: DEXAMETHASONE 4 MG/1 ML VIAL IV SCH (08:57)
[2020-10-30] MEDS: LEVOTHYROXINE 25 MCG TABLET PO SCH (08:57)
[2020-10-30] MEDS: PREGABALIN 50 MG CAPSULE PO SCH ×3 (08:57→20:22)
[2020-10-30] MEDS: PROPRANOLOL 20 MG TABLET PO SCH ×2 (08:57→20:22)
[2020-10-30] MEDS: APIXABAN 2.5 MG TABLET PO SCH ×2 (08:57→20:21)
[2020-10-30] MEDS: INSULIN REGULAR 100 UNIT/ML SUBCUT SCH ×4 (08:58→20:15)
[2020-10-30] MEDS: amLODIPine 10 MG TABLET PO SCH (08:58)
[2020-10-30] MEDS: FAMOTIDINE 20 MG/2 ML VIAL IV SCH (09:06)
[2020-10-30] MEDS: DOPamine 800 MG/250 ML PREMIX IV SCH (09:08)
[2020-10-30] MEDS: INSULIN GLARGINE 100 UNIT/ML SUBCUT SCH (20:15)
[2020-10-30] MEDS: GENTAMICIN INJ 100 MG in PREMIX 1 EACH IV SCH (20:21)
[2020-10-30] MEDS: MELATONIN 3 MG TABLET PO SCH (20:21)
[2020-10-30] MEDS: QUEtiapine 25 MG TABLET PO SCH (20:21)
[2020-10-30] MEDS: ATORVASTATIN 20 MG TABLET PO SCH (20:22)
[2020-10-31] MEDS: diphenhydrAMINE CAP 50 MG CAPSULE PO SCH ×4 (03:28→21:00)
[2020-10-31 05:27] LABS: Basophils % 0.1 % (0.0-0.8); Hematocrit 28.9 VOL% (35.7-47.0); Hemoglobin 9.9 GM/DL (12.0-16.0); Immature Granulocytes % 0.8 %; Immature Granulocytes Absolute 0.08 #; Lymphocytes # 1.4 10*3/uL (1.4-4.0); Lymphocytes % 14.2 % (21.3-54.2); Mean Corpuscular HGB Conc 34.3 GM/DL (32-36); Mean Corpuscular Volume 90.6 FL (87-102); Mean Platelet Volume 9.7 FL (9.6-12.0); Monocytes % 6.4 % (1.7-12.7); Neutrophils % 78.5 % (38.7-73.9); Platelet Count 147 T/CUMM (130-400); Red Blood Count 3.19 MC/CUMM (3.8-5.5); Red Cell Distribution Width 12.9 % (9.3-17.3); White Blood Count 9.7 T/CUMM (4-12)
[2020-10-31 05:43] LABS: Calcium 8.7 MG/DL (8.5-10.1)
[2020-10-31] MEDS: ALBUTEROL/IPRATROPIUM 3 ML NEB RESP TX SCH ×3 (07:27→19:38)
[2020-10-31] MEDS ORDERED: FUROSEMIDE 40 MG/4 ML VIAL IV SCH (09:00)
[2020-10-31] MEDS: INSULIN REGULAR 100 UNIT/ML SUBCUT SCH ×4 (09:49→20:24)
[2020-10-31] MEDS: PROPRANOLOL 20 MG TABLET PO SCH ×2 (09:50→20:23)
[2020-10-31] MEDS: LEVOTHYROXINE 25 MCG TABLET PO SCH (09:50)
[2020-10-31] MEDS: PREGABALIN 50 MG CAPSULE PO SCH ×3 (09:50→20:23)
[2020-10-31] MEDS: amLODIPine 10 MG TABLET PO SCH (09:50)
[2020-10-31] MEDS: APIXABAN 2.5 MG TABLET PO SCH ×2 (09:50→20:23)
[2020-10-31] MEDS: DEXAMETHASONE 4 MG/1 ML VIAL IV SCH (09:51)
[2020-10-31] MEDS: FAMOTIDINE 20 MG/2 ML VIAL IV SCH (09:53)
[2020-10-31] MEDS: DOPamine 800 MG/250 ML PREMIX IV SCH (09:55)
[2020-10-31] MEDS ORDERED: INSULIN GLARGINE 100 UNIT/ML SUBCUT ONE (14:05)
[2020-10-31] MEDS ORDERED: INSULIN GLARGINE 100 UNIT/ML SUBCUT SCH (17:30)
[2020-10-31] MEDS: INSULIN GLARGINE 100 UNIT/ML SUBCUT SCH ×2 (17:49→20:23)
[2020-10-31] MEDS: ATORVASTATIN 20 MG TABLET PO SCH (20:22)
[2020-10-31] MEDS: QUEtiapine 25 MG TABLET PO SCH (20:23)
[2020-10-31] MEDS: MELATONIN 3 MG TABLET PO SCH (20:23)
[2020-10-31] MEDS ORDERED: INSULIN REGULAR 100 UNIT/ML IV ONE (23:05)
[2020-11-01] MEDS: ALBUTEROL/IPRATROPIUM 3 ML NEB RESP TX SCH ×4 (01:29→19:28)
[2020-11-01 04:19] LABS: Hematocrit 28.4 VOL% (35.7-47.0); Immature Granulocytes % 1.3 %; Lymphocytes # 1.1 10*3/uL (1.4-4.0); Lymphocytes % 14.6 % (21.3-54.2); Mean Corpuscular HGB Conc 35.2 GM/DL (32-36); Mean Corpuscular Volume 88.8 FL (87-102); Mean Platelet Volume 9.8 FL (9.6-12.0); Monocytes % 9.3 % (1.7-12.7); Neutrophils % 74.8 % (38.7-73.9); Platelet Count 157 T/CUMM (130-400); Red Cell Distribution Width 12.7 % (9.3-17.3); White Blood Count 7.8 T/CUMM (4-12)
[2020-11-01 04:37] LABS: Calcium 8.6 MG/DL (8.5-10.1); Osmolality,Calculated 300.8 MOS/KG (273-304)
[2020-11-01] MEDS: diphenhydrAMINE CAP 50 MG CAPSULE PO SCH ×4 (04:51→21:46)
[2020-11-01] MEDS: INSULIN LISPRO 100 UNIT/ML SUBCUT SCH ×3 (08:20→17:45)
[2020-11-01] MEDS: INSULIN REGULAR 100 UNIT/ML SUBCUT SCH ×4 (08:20→21:41)
[2020-11-01] MEDS: FAMOTIDINE 20 MG/2 ML VIAL IV SCH (08:30)
[2020-11-01] MEDS: PROPRANOLOL 20 MG TABLET PO SCH ×2 (08:31→21:41)
[2020-11-01] MEDS: PREGABALIN 50 MG CAPSULE PO SCH ×3 (08:31→21:41)
[2020-11-01] MEDS: APIXABAN 2.5 MG TABLET PO SCH ×2 (08:31→21:41)
[2020-11-01] MEDS: amLODIPine 10 MG TABLET PO SCH (08:31)
[2020-11-01] MEDS: LEVOTHYROXINE 25 MCG TABLET PO SCH (08:31)
[2020-11-01] MEDS ORDERED: GENTAMICIN INJ 100 MG in PREMIX 1 EACH IV SCH (09:00)
[2020-11-01] MEDS: DOPamine 800 MG/250 ML PREMIX IV SCH (10:15)
[2020-11-01] MEDS: ATORVASTATIN 20 MG TABLET PO SCH (21:41)
[2020-11-01] MEDS: MELATONIN 3 MG TABLET PO SCH (21:41)
[2020-11-01] MEDS: QUEtiapine 25 MG TABLET PO SCH (21:42)
[2020-11-01] MEDS: INSULIN GLARGINE 100 UNIT/ML SUBCUT SCH (21:46)
[2020-11-02] MEDS: ALBUTEROL/IPRATROPIUM 3 ML NEB RESP TX SCH ×2 (00:30→07:09)
[2020-11-02] MEDS: diphenhydrAMINE CAP 50 MG CAPSULE PO SCH ×2 (03:40→08:53)
[2020-11-02 04:44] LABS: Basophils % 0.1 % (0.0-0.8); Eosinophils # 0.4 10*3/uL (0.0-0.87); Eosinophils % 3.8 % (0.00-10.9); Hematocrit 28.4 VOL% (35.7-47.0); Hemoglobin 9.8 GM/DL (12.0-16.0); Immature Granulocytes % 0.9 %; Immature Granulocytes Absolute 0.09 #; Lymphocytes # 2.6 10*3/uL (1.4-4.0); Lymphocytes % 26.7 % (21.3-54.2); Mean Corpuscular HGB Conc 34.5 GM/DL (32-36); Mean Corpuscular Volume 91.3 FL (87-102); Mean Platelet Volume 9.3 FL (9.6-12.0); Monocytes % 12.4 % (1.7-12.7); Neutrophils % 56.1 % (38.7-73.9); Platelet Count 158 T/CUMM (130-400); Red Blood Count 3.11 MC/CUMM (3.8-5.5); Red Cell Distribution Width 13.2 % (9.3-17.3); White Blood Count 9.7 T/CUMM (4-12)
[2020-11-02 05:05] LABS: Calcium 8.4 MG/DL (8.5-10.1); Osmolality,Calculated 303.3 MOS/KG (273-304)
[2020-11-02] MEDS: INSULIN REGULAR 100 UNIT/ML SUBCUT SCH ×2 (07:19→11:30)
[2020-11-02] MEDS: INSULIN LISPRO 100 UNIT/ML SUBCUT SCH ×2 (08:00→12:05)
[2020-11-02] MEDS: PREGABALIN 50 MG CAPSULE PO SCH (08:53)
[2020-11-02] MEDS: LEVOTHYROXINE 25 MCG TABLET PO SCH (08:53)
[2020-11-02] MEDS: amLODIPine 10 MG TABLET PO SCH (08:53)
[2020-11-02] MEDS: APIXABAN 2.5 MG TABLET PO SCH (08:53)
[2020-11-02] MEDS: FAMOTIDINE 20 MG/2 ML VIAL IV SCH (08:53)
[2020-11-02] MEDS: PROPRANOLOL 20 MG TABLET PO SCH (09:39)
[2020-11-02] MEDS: DOPamine 800 MG/250 ML PREMIX IV SCH (09:41)
[2020-11-02] MEDS ORDERED: ERTAPENEM 500 MG in SODIUM CHLORIDE 0.9% 100 ML IV ONE (12:00)
[2020-11-02 12:06] VITALS: BP 134/51
== END 2020-11-02 14:45 | disposition home health service (06) | DRG 291 ==
LOC: EDUNIT# → EDBD → N.ED 07:05 → SUATTDRO 09:46 → N.EDINP 09:46 → N.CC 11:02 → N.5E 11-01 14:31
PROVIDERS: ADMIT Internal Medicine; ATTEND Internal Medicine

== ENCOUNTER 2020-11-08 19:36 | Observation (INO) ==
[2020-11-08] MEDS ORDERED: ERTAPENEM 500 MG in SODIUM CHLORIDE 0.9% 100 ML IV ONE (20:07)
[2020-11-08 20:48] LABS: Eosinophils # 0.2 10*3/uL (0.0-0.87); Eosinophils % 2.3 % (0.00-10.9); Hemoglobin 9.3 GM/DL (12.0-16.0); Immature Granulocytes % 0.6 %; Immature Granulocytes Absolute 0.04 #; Lymphocytes # 1.4 10*3/uL (1.4-4.0); Lymphocytes % 20.3 % (21.3-54.2); Mean Corpuscular HGB Conc 34.4 GM/DL (32-36); Mean Corpuscular Volume 91.2 FL (87-102); Mean Platelet Volume 9.1 FL (9.6-12.0); Monocytes % 15.8 % (1.7-12.7); Platelet Count 199 T/CUMM (130-400); Red Blood Count 2.96 MC/CUMM (3.8-5.5); Red Cell Distribution Width 13.3 % (9.3-17.3); White Blood Count 6.9 T/CUMM (4-12)
[2020-11-08 21:21] LABS: Eosinophils 3 % (0-10); Lymphocytes 18 % (20-55); Segmented Neutrophils 70 % (50-85); Total Cells Counted 100
[2020-11-08 21:22] LABS: Polychromasia Few; Reactive Lymphocytes Few; Smudge Cells Few
[2020-11-08] MEDS ORDERED: ACETAMINOPHEN 500 MG TABLET PO STA (21:29)
[2020-11-08 21:40] LABS: Albumin 2.7 G/DL (3.4-5.0); Bilirubin,Total 1.1 MG/DL (0.2-1.0); Calcium 8.6 MG/DL (8.5-10.1); Osmolality,Calculated 281.2 MOS/KG (273-304); Potassium 4.2 MMOL/L (3.5-5.1); Total Protein 7.1 G/DL (6.4-8.3)
[2020-11-08] MEDS ORDERED: ACETAMINOPHEN 325 MG TABLET PO PRN (23:13)
[2020-11-08] MEDS ORDERED: NICOTINE 21 MG/24 HR PATCH TRANSDERM PRN (23:13)
[2020-11-08] MEDS ORDERED: guaiFENesin/DM ER 600-30 MG TABLET PO PRN (23:13)
[2020-11-08] MEDS ORDERED: MORPHINE 4 MG/1 ML VIAL IV PRN (23:13)
[2020-11-08] MEDS ORDERED: ONDANSETRON 4 MG/2 ML VIAL IV PRN (23:13)
[2020-11-08] MEDS ORDERED: DEXTROSE 50% 25 GM/50 ML VIAL IV PRN (23:13)
[2020-11-08] MEDS ORDERED: hydrALAZINE 20 MG/1 ML VIAL IV PRN (23:13)
[2020-11-08] MEDS ORDERED: diphenhydrAMINE CAP 25 MG CAPSULE PO PRN (23:13)
[2020-11-08] MEDS ORDERED: GLUCAGON 1 MG VIAL IM PRN (23:13)
[2020-11-09] MEDS: SODIUM CHLORIDE 0.9% 1,000 ML IV SCH ×2 (00:40→01:13)
[2020-11-09] MEDS ORDERED: PNEUMOCOCCAL VACCINE (13 VALENT) 0.5 ML SYRINGE IM ONE (01:42)
[2020-11-09] MEDS ORDERED: DOCUSATE SODIUM 100 MG CAPSULE PO PRN (10:21)
[2020-11-09] MEDS ORDERED: traMADol 50 MG TABLET PO PRN (10:21)
[2020-11-09] MEDS ORDERED: ONDANSETRON 4 MG TABLET PO PRN (10:21)
[2020-11-09] MEDS ORDERED: BISACODYL 5 MG TABLET PO ONE (10:22)
[2020-11-09] MEDS ORDERED: MAGNESIUM HYDROXIDE SUSP 30 ML UDCUP PO ONE (10:22)
[2020-11-09] MEDS ORDERED: SODIUM PHOSPHATE ENEMA 133 ML BOTTLE RECTAL ONE (10:23)
[2020-11-09 11:59] VITALS: BP 141/65
[2020-11-09] MEDS ORDERED: INSULIN LISPRO 100 UNIT/ML SUBCUT SCH (12:00)
[2020-11-09] MEDS ORDERED: ZINC OXIDE PASTE 113 GM TUBE TOP SCH (13:30)
[2020-11-09] MEDS ORDERED: glipiZIDE 10 MG TABLET PO SCH (17:00)
[2020-11-09] MEDS ORDERED: APIXABAN 2.5 MG TABLET PO SCH (21:00)
[2020-11-09] MEDS ORDERED: FAMOTIDINE 20 MG TABLET PO SCH (21:00)
[2020-11-09] MEDS ORDERED: QUEtiapine 25 MG TABLET PO SCH (21:00)
[2020-11-09] MEDS ORDERED: INSULIN GLARGINE 100 UNIT/ML SUBCUT SCH (21:00)
[2020-11-09] MEDS ORDERED: ATORVASTATIN 20 MG TABLET PO SCH (21:00)
[2020-11-09] MEDS ORDERED: PROPRANOLOL 20 MG TABLET PO SCH (21:00)
[2020-11-10] MEDS ORDERED: LEVOTHYROXINE 25 MCG TABLET PO SCH (06:30)
[2020-11-10] MEDS ORDERED: TAMSULOSIN 0.4 MG CAPSULE PO SCH (09:00)
[2020-11-10] MEDS ORDERED: amLODIPine 10 MG TABLET PO SCH (09:00)
[2020-11-10] MEDS ORDERED: PREGABALIN 25 MG CAPSULE PO SCH (09:00)
[2020-11-16] MEDS ORDERED: cloNIDine 0.1 MG/24 HR PATCH TRANSDERM SCH (09:00)
== END 2020-11-09 14:10 | disposition home health service (06) ==
LOC: EDUNIT# → EDBD → N.ED 19:36 → N.EDINP 19:36 → N.TELEN 11-09 00:26
PROVIDERS: ADMIT Internal Medicine; ATTEND Internal Medicine

== ENCOUNTER 2020-11-11 16:51 | Inpatient (IN) ==
[2020-11-11 17:38] LABS: Basophils % 0.3 % (0.0-0.8); Eosinophils # 0.1 10*3/uL (0.0-0.87); Eosinophils % 2.1 % (0.00-10.9); Hematocrit 23.3 VOL% (35.7-47.0); Hemoglobin 7.9 GM/DL (12.0-16.0); Immature Granulocytes % 0.5 %; Immature Granulocytes Absolute 0.02 #; Lymphocytes # 1.1 10*3/uL (1.4-4.0); Lymphocytes % 28.3 % (21.3-54.2); Mean Corpuscular HGB Conc 33.9 GM/DL (32-36); Mean Corpuscular Volume 91.7 FL (87-102); Mean Platelet Volume 9.1 FL (9.6-12.0); Monocytes % 7.5 % (1.7-12.7); Neutrophils % 61.3 % (38.7-73.9); Platelet Count 155 T/CUMM (130-400); Red Blood Count 2.54 MC/CUMM (3.8-5.5); Red Cell Distribution Width 13.4 % (9.3-17.3); White Blood Count 3.8 T/CUMM (4-12)
[2020-11-11 17:47] LABS: Bacteria,Urine Few /HPF (Few); Bilirubin,Urine Negative (Negative); Blood, Urine Negative (Negative); Glucose,Urine (UA) 150 mg/dL (Negative); Ketones,Urine Negative (Negative); Mucus,Urine Occasional /LPF (Occasional); Nitrite,Urine Negative (Negative); Protein,Urine Negative; Squamous Epithelial Cell,Urine Occasional /HPF (0-10); Urine Appearance Slightly Hazy (Clear); Urine Color Yellow (Yellow); Urine Specific Gravity 1.012 (1.001-1.035); Urine Urobilinogen < 2.0 EU/DL (0.2-1.0); WBC,Urine 124 /HPF (0-6)
[2020-11-11 17:52] LABS: Albumin 2.2 G/DL (3.4-5.0); Bilirubin,Total 0.4 MG/DL (0.2-1.0); Calcium 7.5 MG/DL (8.5-10.1); Osmolality,Calculated 282.2 MOS/KG (273-304); Total Protein 6.1 G/DL (6.4-8.3)
[2020-11-11] MEDS ORDERED: LEVOFLOXACIN INJ 500 MG in PREMIX 1 EACH IV STA (18:24)
[2020-11-11] MEDS ORDERED: GLUCAGON 1 MG VIAL IM PRN ×2 (18:45→18:48)
[2020-11-11] MEDS ORDERED: DEXTROSE 50% 25 GM/50 ML VIAL IV PRN ×2 (18:45→18:48)
[2020-11-11] MEDS ORDERED: DOCUSATE SODIUM 100 MG CAPSULE PO PRN (18:47)
[2020-11-11] MEDS ORDERED: ONDANSETRON 4 MG TABLET PO PRN (18:47)
[2020-11-11] MEDS ORDERED: HALOPERIDOL DECANOATE 50 MG/ML IM SCH (19:00)
[2020-11-11] MEDS: APIXABAN 2.5 MG TABLET PO SCH (22:40)
[2020-11-11] MEDS: ERTAPENEM 500 MG in SODIUM CHLORIDE 0.9% 100 ML IV SCH (22:40)
[2020-11-11] MEDS: glipiZIDE 10 MG TABLET PO SCH (22:40)
[2020-11-11] MEDS: traMADol 50 MG TABLET PO PRN (22:40)
[2020-11-12] MEDS: INSULIN LISPRO 100 UNIT/ML SUBCUT SCH ×5 (01:54→21:29)
[2020-11-12 06:08] LABS: Eosinophils % 0.3 % (0.00-10.9); Hematocrit 24.2 VOL% (35.7-47.0); Immature Granulocytes % 0.3 %; Immature Granulocytes Absolute 0.01 #; Lymphocytes # 0.6 10*3/uL (1.4-4.0); Lymphocytes % 20.6 % (21.3-54.2); Mean Corpuscular HGB Conc 33.1 GM/DL (32-36); Mean Corpuscular Volume 93.1 FL (87-102); Mean Platelet Volume 9.3 FL (9.6-12.0); Monocytes % 6.1 % (1.7-12.7); Neutrophils % 72.7 % (38.7-73.9); Platelet Count 142 T/CUMM (130-400); Red Cell Distribution Width 13.3 % (9.3-17.3); White Blood Count 3.1 T/CUMM (4-12)
[2020-11-12] MEDS: LEVOTHYROXINE 25 MCG TABLET PO SCH (06:19)
[2020-11-12 06:23] LABS: Calcium 7.9 MG/DL (8.5-10.1); Ferritin 410.3 ng/ml (8-252)
[2020-11-12] MEDS: glipiZIDE 10 MG TABLET PO SCH ×2 (08:49→21:30)
[2020-11-12] MEDS: TAMSULOSIN 0.4 MG CAPSULE PO SCH (08:49)
[2020-11-12] MEDS: APIXABAN 2.5 MG TABLET PO SCH ×2 (08:49→21:30)
[2020-11-12] MEDS: ZINC GLUCONATE 50 MG TABLET PO SCH (08:49)
[2020-11-12] MEDS: ASCORBIC ACID 500 MG TABLET PO SCH (08:49)
[2020-11-12] MEDS: PREGABALIN 50 MG CAPSULE PO SCH (08:49)
[2020-11-12] MEDS: amLODIPine 10 MG TABLET PO SCH (08:51)
[2020-11-12] MEDS: NON-FORMULARY MEDICATION (Linaclotide [Linzess] 72 mcg Capsule) PO SCH (08:51)
[2020-11-12] MEDS ORDERED: ERTAPENEM 1,000 MG VIAL IV SCH (09:00)
[2020-11-12] MEDS: DEXAMETHASONE 4 MG/1 ML VIAL IV SCH (10:14)
[2020-11-12] MEDS: FAMOTIDINE 20 MG/2 ML VIAL IV SCH ×2 (10:15→21:29)
[2020-11-12] MEDS: traMADol 50 MG TABLET PO PRN (18:06)
[2020-11-12] MEDS: ERTAPENEM 500 MG in SODIUM CHLORIDE 0.9% 100 ML IV SCH (21:29)
[2020-11-12] MEDS: QUEtiapine 25 MG TABLET PO SCH (21:30)
[2020-11-13 06:02] LABS: Hematocrit 24.1 VOL% (35.7-47.0); Hemoglobin 7.9 GM/DL (12.0-16.0); Immature Granulocytes % 0.3 %; Immature Granulocytes Absolute 0.01 #; Lymphocytes # 0.6 10*3/uL (1.4-4.0); Mean Corpuscular HGB Conc 32.8 GM/DL (32-36); Mean Corpuscular Volume 93.1 FL (87-102); Mean Platelet Volume 9.3 FL (9.6-12.0); Monocytes % 8.3 % (1.7-12.7); Neutrophils % 70.4 % (38.7-73.9); Platelet Count 131 T/CUMM (130-400); Red Blood Count 2.59 MC/CUMM (3.8-5.5); Red Cell Distribution Width 13.1 % (9.3-17.3)
[2020-11-13] MEDS: LEVOTHYROXINE 25 MCG TABLET PO SCH (06:13)
[2020-11-13 06:39] LABS: Calcium 8.2 MG/DL (8.5-10.1); Ferritin 615.6 ng/ml (8-252); Osmolality,Calculated 283.2 MOS/KG (273-304)
[2020-11-13 06:52] LABS: Hypochromasia 1+
[2020-11-13 06:53] LABS: Microcytosis 1+; Platelet Estimate Adequate
[2020-11-13 07:18] LABS: Band Neutrophils 2 % (0-10); Lymphocytes 20 % (20-55); Segmented Neutrophils 75 % (50-85); Total Cells Counted 100
[2020-11-13] MEDS: DEXAMETHASONE 4 MG/1 ML VIAL IV SCH (08:54)
[2020-11-13] MEDS: TAMSULOSIN 0.4 MG CAPSULE PO SCH (08:54)
[2020-11-13] MEDS: FAMOTIDINE 20 MG/2 ML VIAL IV SCH ×2 (08:54→22:04)
[2020-11-13] MEDS: APIXABAN 2.5 MG TABLET PO SCH ×2 (08:54→22:03)
[2020-11-13] MEDS: glipiZIDE 10 MG TABLET PO SCH ×2 (08:55→22:03)
[2020-11-13] MEDS: ASCORBIC ACID 500 MG TABLET PO SCH (08:55)
[2020-11-13] MEDS: NON-FORMULARY MEDICATION (Linaclotide [Linzess] 72 mcg Capsule) PO SCH (08:55)
[2020-11-13] MEDS: amLODIPine 10 MG TABLET PO SCH (08:55)
[2020-11-13] MEDS: INSULIN LISPRO 100 UNIT/ML SUBCUT SCH ×4 (10:15→22:10)
[2020-11-13] MEDS: PREGABALIN 50 MG CAPSULE PO SCH (10:15)
[2020-11-13] MEDS: MENTHOL/ZINC OXIDE OINT 71 GM JAR TOP SCH ×2 (10:40→22:40)
[2020-11-13] MEDS ORDERED: SODIUM CHLORIDE 0.9% 1,000 ML IV PRN (14:16)
[2020-11-13 15:46] LABS: ABG Base Excess -2.8 MMOL/L (-2.5-2.5); ABG HCO3 21.9 MMOL/L (20-26); ABG Oxygen Saturation 89.1 % (95-100); ABG PCO2 39.6 MM HG (35-48); ABG PH 7.359 (7.35-7.45); ABG PO2 60.9 MM HG (80-95); ABG TCO2 20.9 MMOL/L (23-27)
[2020-11-13] MEDS: traMADol 50 MG TABLET PO PRN (17:24)
[2020-11-13] MEDS: QUEtiapine 25 MG TABLET PO SCH (22:04)
[2020-11-13] MEDS: ERTAPENEM 500 MG in SODIUM CHLORIDE 0.9% 100 ML IV SCH (22:40)
[2020-11-14] MEDS: MORPHINE 4 MG/1 ML VIAL IV PRN (05:10)
[2020-11-14] MEDS: LEVOTHYROXINE 25 MCG TABLET PO SCH (06:10)
[2020-11-14 06:34] LABS: Immature Granulocytes % 0.5 %; Immature Granulocytes Absolute 0.03 #; Lymphocytes # 0.6 10*3/uL (1.4-4.0); Lymphocytes % 9.1 % (21.3-54.2); Mean Corpuscular HGB Conc 33.3 GM/DL (32-36); Mean Corpuscular Volume 92.7 FL (87-102); Mean Platelet Volume 9.2 FL (9.6-12.0); Monocytes % 6.1 % (1.7-12.7); Neutrophils % 84.3 % (38.7-73.9); Platelet Count 146 T/CUMM (130-400); Red Blood Count 2.59 MC/CUMM (3.8-5.5); Red Cell Distribution Width 13.2 % (9.3-17.3); White Blood Count 6.3 T/CUMM (4-12)
[2020-11-14 06:59] LABS: Calcium 10.6 MG/DL (8.5-10.1); Ferritin 109.7 ng/ml (8-252); Osmolality,Calculated 277.8 MOS/KG (273-304)
[2020-11-14] MEDS: APIXABAN 2.5 MG TABLET PO SCH (09:01)
[2020-11-14] MEDS: ZINC GLUCONATE 50 MG TABLET PO SCH (09:01)
[2020-11-14] MEDS: TAMSULOSIN 0.4 MG CAPSULE PO SCH (09:01)
[2020-11-14] MEDS: amLODIPine 10 MG TABLET PO SCH (09:01)
[2020-11-14] MEDS: ASCORBIC ACID 500 MG TABLET PO SCH (09:01)
[2020-11-14] MEDS: traMADol 50 MG TABLET PO PRN (09:02)
[2020-11-14] MEDS: DEXAMETHASONE 4 MG/1 ML VIAL IV SCH (09:02)
[2020-11-14] MEDS: FAMOTIDINE 20 MG/2 ML VIAL IV SCH ×2 (09:02→22:45)
[2020-11-14] MEDS: INSULIN LISPRO 100 UNIT/ML SUBCUT SCH ×4 (09:03→22:50)
[2020-11-14] MEDS: NON-FORMULARY MEDICATION (Linaclotide [Linzess] 72 mcg Capsule) PO SCH (09:17)
[2020-11-14] MEDS: PREGABALIN 50 MG CAPSULE PO SCH (09:17)
[2020-11-14] MEDS: MENTHOL/ZINC OXIDE OINT 71 GM JAR TOP SCH ×2 (09:18→22:45)
[2020-11-14] MEDS: glipiZIDE 10 MG TABLET PO SCH ×2 (09:18→22:45)
[2020-11-14] MEDS ORDERED: REMDESIVIR 200 MG in SODIUM CHLORIDE 0.9% 210 ML IV ONE (10:30)
[2020-11-14] MEDS: APIXABAN 5 MG TABLET PO SCH (22:44)
[2020-11-14] MEDS: QUEtiapine 25 MG TABLET PO SCH (22:45)
[2020-11-14] MEDS: ERTAPENEM 500 MG in SODIUM CHLORIDE 0.9% 100 ML IV SCH (22:55)
[2020-11-15] MEDS: LEVOTHYROXINE 25 MCG TABLET PO SCH (05:35)
[2020-11-15 08:16] LABS: Hematocrit 23.9 VOL% (35.7-47.0); Hemoglobin 8.1 GM/DL (12.0-16.0); Immature Granulocytes % 0.7 %; Immature Granulocytes Absolute 0.04 #; Lymphocytes # 0.7 10*3/uL (1.4-4.0); Lymphocytes % 11.6 % (21.3-54.2); Mean Corpuscular HGB Conc 33.9 GM/DL (32-36); Mean Corpuscular Volume 90.2 FL (87-102); Mean Platelet Volume 9.2 FL (9.6-12.0); Monocytes % 6.8 % (1.7-12.7); Neutrophils % 80.9 % (38.7-73.9); Platelet Count 145 T/CUMM (130-400); Red Blood Count 2.65 MC/CUMM (3.8-5.5); Red Cell Distribution Width 13.6 % (9.3-17.3); White Blood Count 5.8 T/CUMM (4-12)
[2020-11-15 08:39] LABS: Albumin 2.5 G/DL (3.4-5.0); Bilirubin,Total 0.7 MG/DL (0.2-1.0); Calcium 8.1 MG/DL (8.5-10.1); Total Protein 6.9 G/DL (6.4-8.3)
[2020-11-15] MEDS: REMDESIVIR 100 MG in SODIUM CHLORIDE 0.9% 230 ML IV SCH (09:21)
[2020-11-15] MEDS: DEXAMETHASONE 4 MG/1 ML VIAL IV SCH (09:21)
[2020-11-15] MEDS: INSULIN LISPRO 100 UNIT/ML SUBCUT SCH ×4 (09:21→20:27)
[2020-11-15] MEDS: glipiZIDE 10 MG TABLET PO SCH ×2 (09:21→20:26)
[2020-11-15] MEDS: TAMSULOSIN 0.4 MG CAPSULE PO SCH (09:21)
[2020-11-15] MEDS: MENTHOL/ZINC OXIDE OINT 71 GM JAR TOP SCH ×2 (09:21→20:28)
[2020-11-15] MEDS: APIXABAN 5 MG TABLET PO SCH ×2 (09:21→20:27)
[2020-11-15] MEDS: FAMOTIDINE 20 MG/2 ML VIAL IV SCH ×2 (09:22→20:27)
[2020-11-15] MEDS: ASCORBIC ACID 500 MG TABLET PO SCH (09:22)
[2020-11-15] MEDS: amLODIPine 10 MG TABLET PO SCH (09:22)
[2020-11-15] MEDS: NON-FORMULARY MEDICATION (Linaclotide [Linzess] 72 mcg Capsule) PO SCH (09:22)
[2020-11-15] MEDS: PREGABALIN 50 MG CAPSULE PO SCH (09:22)
[2020-11-15 09:47] LABS: Ferritin 934.7 ng/ml (8-252)
[2020-11-15] MEDS: MORPHINE 4 MG/1 ML VIAL IV PRN (16:52)
[2020-11-15] MEDS: QUEtiapine 25 MG TABLET PO SCH (20:26)
[2020-11-15] MEDS: traMADol 50 MG TABLET PO PRN (20:26)
[2020-11-15] MEDS: ERTAPENEM 500 MG in SODIUM CHLORIDE 0.9% 100 ML IV SCH (21:56)
[2020-11-16 05:31] LABS: Hematocrit 25.2 VOL% (35.7-47.0); Hemoglobin 7.9 GM/DL (12.0-16.0); Immature Granulocytes % 0.6 %; Immature Granulocytes Absolute 0.05 #; Lymphocytes # 0.7 10*3/uL (1.4-4.0); Lymphocytes % 8.6 % (21.3-54.2); Mean Corpuscular HGB Conc 31.3 GM/DL (32-36); Mean Corpuscular Volume 96.6 FL (87-102); Mean Platelet Volume 9.5 FL (9.6-12.0); Monocytes % 6.4 % (1.7-12.7); Neutrophils % 84.4 % (38.7-73.9); Platelet Count 142 T/CUMM (130-400); Red Blood Count 2.61 MC/CUMM (3.8-5.5); Red Cell Distribution Width 13.5 % (9.3-17.3)
[2020-11-16 05:52] LABS: Calcium 8.4 MG/DL (8.5-10.1); Osmolality,Calculated 294.7 MOS/KG (273-304)
[2020-11-16 05:56] LABS: Ferritin 1006.9 ng/ml (8-252)
[2020-11-16] MEDS: LEVOTHYROXINE 25 MCG TABLET PO SCH (06:53)
[2020-11-16] MEDS: glipiZIDE 10 MG TABLET PO SCH ×2 (10:06→20:27)
[2020-11-16] MEDS: ZINC GLUCONATE 50 MG TABLET PO SCH (10:06)
[2020-11-16] MEDS: ASCORBIC ACID 500 MG TABLET PO SCH (10:06)
[2020-11-16] MEDS: MENTHOL/ZINC OXIDE OINT 71 GM JAR TOP SCH ×2 (10:06→20:28)
[2020-11-16] MEDS: INSULIN LISPRO 100 UNIT/ML SUBCUT SCH ×4 (10:06→20:46)
[2020-11-16] MEDS: PREGABALIN 25 MG CAPSULE PO SCH (10:06)
[2020-11-16] MEDS: amLODIPine 10 MG TABLET PO SCH (10:06)
[2020-11-16] MEDS: APIXABAN 5 MG TABLET PO SCH ×2 (10:06→20:27)
[2020-11-16] MEDS: DEXAMETHASONE 4 MG/1 ML VIAL IV SCH (10:06)
[2020-11-16] MEDS: FAMOTIDINE 20 MG/2 ML VIAL IV SCH ×2 (10:06→20:28)
[2020-11-16] MEDS: TAMSULOSIN 0.4 MG CAPSULE PO SCH (10:06)
[2020-11-16] MEDS: MORPHINE 4 MG/1 ML VIAL IV PRN (10:14)
[2020-11-16] MEDS: NON-FORMULARY MEDICATION (Linaclotide [Linzess] 72 mcg Capsule) PO SCH (10:43)
[2020-11-16] MEDS: REMDESIVIR 100 MG in SODIUM CHLORIDE 0.9% 230 ML IV SCH (11:52)
[2020-11-16] MEDS: INSULIN GLARGINE 100 UNIT/ML SUBCUT SCH (11:53)
[2020-11-16] MEDS: QUEtiapine 25 MG TABLET PO SCH (20:27)
[2020-11-16] MEDS: ERTAPENEM 500 MG in SODIUM CHLORIDE 0.9% 100 ML IV SCH (22:55)
[2020-11-17 05:45] LABS: Basophils % 0.1 % (0.0-0.8); Hematocrit 24.5 VOL% (35.7-47.0); Hemoglobin 8.3 GM/DL (12.0-16.0); Immature Granulocytes % 0.8 %; Immature Granulocytes Absolute 0.07 #; Lymphocytes # 0.7 10*3/uL (1.4-4.0); Lymphocytes % 8.3 % (21.3-54.2); Mean Corpuscular HGB Conc 33.9 GM/DL (32-36); Mean Corpuscular Volume 89.7 FL (87-102); Mean Platelet Volume 9.7 FL (9.6-12.0); Monocytes % 6.6 % (1.7-12.7); Neutrophils % 84.2 % (38.7-73.9); Platelet Count 138 T/CUMM (130-400); Red Blood Count 2.73 MC/CUMM (3.8-5.5); Red Cell Distribution Width 13.6 % (9.3-17.3); White Blood Count 8.4 T/CUMM (4-12)
[2020-11-17 06:14] LABS: Calcium 8.4 MG/DL (8.5-10.1)
[2020-11-17] MEDS: LEVOTHYROXINE 25 MCG TABLET PO SCH (06:49)
[2020-11-17] MEDS ORDERED: CETIRIZINE 10 MG TABLET PO PRN (07:42)
[2020-11-17 08:01] LABS: Hypochromasia 1+; Lymphocytes 12 % (20-55); Segmented Neutrophils 85 % (50-85); Total Cells Counted 100
[2020-11-17 08:02] LABS: Microcytosis 1+
[2020-11-17 08:03] LABS: Platelet Estimate Adequate
[2020-11-17] MEDS ORDERED: FAMOTIDINE 20 MG/2 ML VIAL IV SCH (09:00)
[2020-11-17] MEDS ORDERED: ZINC SULFATE 220 MG CAPSULE PO SCH (09:00)
[2020-11-17] MEDS ORDERED: CHOLECALCIFEROL 1,000 UNIT TABLET PO SCH (09:00)
[2020-11-17] MEDS: MENTHOL/ZINC OXIDE OINT 71 GM JAR TOP SCH ×2 (10:27→21:20)
[2020-11-17] MEDS: INSULIN LISPRO 100 UNIT/ML SUBCUT SCH ×4 (10:27→21:20)
[2020-11-17] MEDS: DEXAMETHASONE 4 MG/1 ML VIAL IV SCH (10:27)
[2020-11-17] MEDS: NON-FORMULARY MEDICATION (Linaclotide [Linzess] 72 mcg Capsule) PO SCH (10:28)
[2020-11-17] MEDS: APIXABAN 5 MG TABLET PO SCH ×2 (10:28→21:20)
[2020-11-17] MEDS: TAMSULOSIN 0.4 MG CAPSULE PO SCH (10:28)
[2020-11-17] MEDS: glipiZIDE 10 MG TABLET PO SCH ×2 (10:28→21:20)
[2020-11-17] MEDS: INSULIN GLARGINE 100 UNIT/ML SUBCUT SCH (10:28)
[2020-11-17] MEDS: PREGABALIN 25 MG CAPSULE PO SCH (10:28)
[2020-11-17] MEDS: amLODIPine 10 MG TABLET PO SCH (10:28)
[2020-11-17] MEDS: ASCORBIC ACID 500 MG TABLET PO SCH (10:29)
[2020-11-17] MEDS: REMDESIVIR 100 MG in SODIUM CHLORIDE 0.9% 230 ML IV SCH (10:38)
[2020-11-17] MEDS ORDERED: LACTATED RINGERS 1,000 ML IV ONE (14:45)
[2020-11-17] MEDS: QUEtiapine 25 MG TABLET PO SCH (21:20)
[2020-11-18 00:14] VITALS: BP 128/58
[2020-11-18] MEDS ORDERED: cloNIDine 0.1 MG/24 HR PATCH TRANSDERM SCH (09:00)
== END 2020-11-18 05:35 | disposition expired | DRG 177 ==
LOC: N.ED 16:51 → SUATTDRO 18:45 → N.EDINP 18:45 → N.2E 21:34
PROVIDERS: ADMIT Family Medicine; ATTEND Family Medicine